=== PATIENT | male | born 1945 | race Caucasian/White ===

== ENCOUNTER 2018-03-16 21:41 | Inpatient (IN) | payer MEDICARE ==
[~2018-03-16] VITALS: Ht 170.2 cm; Wt 84.8 kg
[2018-03-16] MEDS ORDERED: CHOL10003 PO (22:05)
[2018-03-16] MEDS ORDERED: VALP250C2 PO (22:05)
[2018-03-16] MEDS ORDERED: VENL225T PO (22:05)
[2018-03-16] MEDS ORDERED: CALC200T96 PO (22:05)
[2018-03-16] MEDS ORDERED: PHEN26CR RC (22:05)
[2018-03-16] MEDS ORDERED: SULF1TAB24 PO (22:05)
[2018-03-16] MEDS ORDERED: [UNRECOGNIZED DRUG - CODE] PO (22:05)
[2018-03-16] MEDS ORDERED: SENN-87 PO (22:05)
[2018-03-16] MEDS ORDERED: SIMV40TA3 PO (22:05)
[2018-03-16] MEDS ORDERED: DOCU-109 PO (22:05)
[2018-03-16] MEDS ORDERED: VITS42.55 TP (22:05)
[2018-03-16] MEDS ORDERED: MAGN400T3 PO (22:05)
[2018-03-16] MEDS ORDERED: MEMA10TA PO (22:05)
[2018-03-16] MEDS ORDERED: ACET325T21 PO (22:05)
[2018-03-16] MEDS ORDERED: TRAZ150T49 PO (22:05)
[2018-03-16] MEDS ORDERED: DONE10TA7 PO (22:05)
[2018-03-16] MEDS ORDERED: NYST15CR TP (22:05)
[2018-03-16] MEDS ORDERED: ASPI-630 PO (22:05)
[2018-03-16] MEDS ORDERED: CLON0.5T11 PO ×2 (22:05)
[2018-03-16] MEDS ORDERED: RISP1TAB3 PO (22:05)
[2018-03-16 22:36] LABS: BASO # 0.1 x10^3/uL (0.0-0.2); BASO % 1 % (0-3); EOS # 0.4 x10^3/uL (0.0-0.7); EOS % 5 % (0-3); HEMATOCRIT 39.5 % (39.0-53.0); HEMOGLOBIN 13.3 g/dL (13.0-17.5); LYMPH # 2.8 x10^3/uL (1.0-4.8); LYMPH % 28 % (24-48); MEAN CORPUSCULAR HEMOGLOBIN 30 pg (25-35); MEAN CORPUSCULAR HGB CONC 34 g/dL (31-37); MEAN CORPUSCULAR VOLUME 89 fL (79-100); MONO % 10 % (0-9); NEUT # 5.6 x10^3uL (1.8-7.7); NEUT % 57 % (31-73); PLATELET COUNT 252 x10^3/uL (140-400); RED BLOOD COUNT 4.43 x10^6/uL (4.30-5.70); RED CELL DISTRIBUTION WIDTH 14.7 % (11.5-14.5); WHITE BLOOD COUNT 9.9 x10^3/uL (4.0-11.0)
[2018-03-16 22:43] LABS: ALBUMIN 3.2 g/dL (3.4-5.0); ALBUMIN/GLOBULIN RATIO 0.9 (1.0-1.7); CALCIUM 8.9 mg/dL (8.5-10.1); CREATININE 1.1 mg/dL (0.7-1.3); MAGNESIUM 2.1 mg/dL (1.8-2.4); TOTAL BILIRUBIN 0.4 mg/dL (0.2-1.0); TOTAL PROTEIN 6.8 g/dL (6.4-8.2)
[2018-03-16 23:47] LABS: BILIRUBIN,URINE NEG (NEG); CLARITY,URINE HAZY; COLOR,URINE YELLOW; GLUCOSE,URINE NEG (NEG)
[2018-03-16 23:48] LABS: BACTERIA,URINE FEW /HPF (0-FEW); NITRITE,URINE POS (NEG); UROBILINOGEN,URINE 0.2 mg/dL (0.2 mg/dL); WBC,URINE >40 /HPF (0-4)
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
[2018-03-17] MEDS ORDERED: MAG HYDROX/AL HYDROX/SIMETH 30 ML ORAL.SUSP PO PRN (01:15)
[2018-03-17] MEDS ORDERED: clonazePAM 0.5 MG TABLET PO PRN (01:15)
[2018-03-17] MEDS ORDERED: MAGNESIUM HYDROXIDE 2,400 MG/30 ML ORAL.SUSP. PO PRN (01:15)
[2018-03-17] MEDS ORDERED: ACETAMINOPHEN 325 MG TABLET PO PRN ×2 (01:15→01:30)
[2018-03-17] MEDS ORDERED: METHYL SALICYLATE/MENTHOL TOPICAL OINTMENT 29GM TUBE. TP PRN (01:15)
[2018-03-17 01:46] LABS: VAL ACID 23 mcg/mL (50-100)
[2018-03-17 02:14] VITALS: BP 140/72
--- NOTE | 2018-03-17 02:15 | EKG ---
[address] [address] Test Date: 2018-03-16 Test Time: 22:40:19 Pat Name: TOM BERG Department: Room: [address] [place] [address] Gender: M Bus Person: : 1945 Requested By: NAVEED WHELAN Order Number: [id number] Reading MD: Jeffrey Wu MD Measurements Intervals [place] Rate: 78 P: 43 TN: 150 QRS: -39 QRSD: 90 T: 36 QT: 380 QTc: 437 Interpretive Statements SINUS RHYTHM ABNORMAL LEFT AXIS DEVIATION LEFT ANTERIOR FASCICULAR BLOCK NON-SPECIFIC ST/T CHANGES Electronically Signed On 03-26-2018 10:53:44 CDT by Jeffrey Wu MD
[2018-03-17 06:43] VITALS: BP 123/59
[2018-03-17] MEDS: ASPIRIN 81 MG TAB.CHEW PO SCH (07:52)
[2018-03-17] MEDS: SMZ/TMP 800/160MG TABLET. PO SCH (07:52)
[2018-03-17] MEDS: MAGNESIUM OXIDE 400 MG TABLET PO SCH (07:52)
[2018-03-17] MEDS: VENLAFAXINE XR 37.5 MG CAP.ER.24H. PO SCH (07:53)
[2018-03-17] MEDS: CALCIUM CARBONATE 500 MG TAB.CHEW PO SCH ×2 (07:53→21:06)
[2018-03-17] MEDS: CHOLECALCIFEROL (VITAMIN D3) 1,000 UNIT TABLET PO SCH (07:53)
[2018-03-17] MEDS: clonazePAM 0.5 MG TABLET PO SCH ×2 (07:54→21:06)
[2018-03-17] MEDS: risperiDONE 0.25 MG TABLET. PO SCH ×2 (07:55→21:06)
[2018-03-17] MEDS: VITS A & D/LANOLIN TOPICAL OINTMENT 56GM TUBE. TP SCH ×2 (07:58→21:21)
[2018-03-17] MEDS: NYSTATIN 100,000 UNIT/GM TOPICAL CREAM 15GM TUBE. TP SCH ×2 (07:58→21:23)
[2018-03-17] MEDS ORDERED: VENLAFAXINE XR 37.5 MG CAP.ER.24H. PO SCH (09:00)
[2018-03-17] MEDS ORDERED: MEMANTINE 5 MG TABLET. PO SCH (09:00)
[2018-03-17 12:42] LABS: THYROID STIM HORMONE (TSH) 1.884 uIU/mL (0.358-3.740)
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
[2018-03-17 14:11] LABS: THYROXINE 5.7 ug/dL (4.5-12.0)
[2018-03-17 16:32] VITALS: BP 134/73
[2018-03-17 17:08] LABS: HEMOGLOBIN A1C 6.7 % (4.8-5.6)
[2018-03-17] MEDS: NIACIN ER 250 MG TABLET.ER PO SCH (17:09)
[2018-03-17] MEDS ORDERED: VALPROIC ACID 250 MG CAPSULE. PO SCH (21:00)
[2018-03-17] MEDS: DIVALPROEX ER 500 MG TAB.ER.24H PO SCH (21:06)
[2018-03-17] MEDS: DOCUSATE SODIUM 100 MG CAPSULE PO SCH (21:09)
[2018-03-17] MEDS: SENNOSIDES 8.6 MG TABLET PO SCH (21:09)
[2018-03-17] MEDS: DONEPEZIL HCL 10 MG TABLET PO SCH (21:09)
[2018-03-17] MEDS: traZODone 150 MG TABLET. PO SCH (21:19)
[2018-03-17] MEDS: SIMVASTATIN 40 MG TABLET. PO SCH (21:21)
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
--- NOTE | 2018-03-17 23:05 | PDOC ---
Exam Note: Bonilla Note: Please also refer to the separate dictated note~for this date of service dictated separately.~Patient seen individually. Discussed the patient with Nursing staff reviewed the chart.~Reviewed interim history and current functioning. Reviewed vital signs,~Labs/ Radiology~and current medications noted below. Continue current treatment with the changes noted in the dictated addendum note Assessment: Vital Signs: Vital Signs Date Time Temp Pulse Resp B/P (MAP) Pulse Ox O2 Delivery O2 Flow Rate FiO2 03/17/18 16:32 98.7 86 18 134/73 (93) 92 03/17/18 00:00 Room Air Labs: Laboratory Tests Test 03/16/18 23:25 Urine Collection Type Unknown Urine Color Yellow Urine Clarity Hazy Urine pH 6.5 Urine Specific [place] 1.020 Urine Protein Neg (NEG-TRACE) Urine Glucose (UA) Neg mg/dL (NEG) Urine Ketones (Stick) Neg mg/dL (NEG) Urine Blood Mod (NEG) Urine Nitrite Pos (NEG) Urine Bilirubin Neg (NEG) Urine Urobilinogen Dipstick 0.2 mg/dL (0.2 mg/dL) Urine Leukocyte Esterase Mod (NEG) Urine RBC 6-10 /HPF (0-2) Urine WBC >40 /HPF (0-4) Urine Squamous Epithelial Cells None /LPF Urine Bacteria Few /HPF (0-FEW) Current Medications: Meds: Current Medications Acetaminophen (Tylenol) 650 mg PRN Q6HRS PRN PO PAIN / TEMP; Start 03/17/18 at 01:15; Status UNV Multi-Ingredient Ointment (Analgesic [place]) 1 marlen PRN QID PRN TP MUSCLE PAIN; Start 03/17/18 at 01:15 Al Hydroxide/Mg Hydroxide (Mylanta Plus Xs) 15 ml PRN AFTMEALHC PRN PO DYSPEPSIA; Start 03/17/18 at 01:15 Magnesium Hydroxide (Milk Of Magnesia) 2,400 mg PRN QHS PRN PO CONSTIPATION; Start 03/17/18 at 01:15 Clonazepam (KlonoPIN) 0.5 mg BID PO Last administered on 03/17/18at 21:06; Start 03/17/18 at 09:00 Clonazepam (KlonoPIN) 0.5 mg PRN DAILY PRN PO ANXIETY / AGITATION; Start at 01:15 Valproic Acid (Depakene) 250 mg HS PO ; Start 03/17/18 at 21:00; Stop 03/17/18 at 21:00; Status DC Donepezil HCl (Aricept) 10 mg QHS PO Last administered on 03/17/18at 21:09; Start 03/17/18 at 21:00 Memantine (Namenda) 2.5 mg BID PO Last administered on 03/17/18at 07:54; Start 03/17/18 at 09:00; Stop 03/17/18 at 21:01; Status DC Risperidone (RisperDAL) 1 mg BID PO Last administered on 03/17/18 21:06; Start 03/17/18 at 09:00 Trazodone HCl (Desyrel) 150 mg QHS PO Last administered on 03/17/18 21:19; Start 03/17/18 at 21:00 Venlafaxine HCl (Effexor Xr) 37.5 mg DAILY PO ; Start 03/17/18 at 09:00; Stop at 09:00; Status DC Acetaminophen (Tylenol) 650 mg PRN Q6HRS PRN PO PAIN / TEMP; Start 03/17/18 at 01:30 Calcium Carbonate/ Glycine (Tums) 500 mg BID PO Last administered on 03/17/18 21:06; Start 03/17/18 at 09:00 Vitamin D (Vitamin D3) 2,000 unit DAILY PO Last administered on 03/17/18at 07:53 ; Start 03/17/18 at 09:00 Simvastatin (Zocor) 40 mg HS PO Last administered on 03/17/18 21:21; Start 06/24 at 21:00 Trimethoprim/ Sulfamethoxazole (Bactrim Ds) 1 tab DAILY PO Last administered on 03/17/18 07:52; Start 03/17/18 at 09:00 Vitamin A/Vitamin D (Vitamin A & D Ointment) 1 marlen BID TP Last administered on 03/17/18 21:21; Start 03/17/18 at 09:00 Aspirin (Children'S Aspirin) 81 mg DAILYWBKFT PO Last administered on 07:52; Start 03/17/18 at 08:00 Docusate Sodium (Colace) 200 mg HS PO Last administered on 03/17/18 21:09; Start 03/17/18 at 21:00 Magnesium Oxide (Magnesium Oxide) 400 mg DAILY PO Last administered on 07:52; Start 03/17/18 at 09:00 Niacin (Slo-Niacin) 750 mg QEVNG PO Last administered on 03/17/18 17:09; Start 03/17/18 at 18:00 Nystatin (Mycostatin) 1 marlen BID TP Last administered on 03/17/18at 21:23; Start 03/17/18 at 09:00 Phenyleph/Shark Oil/Min Oil/Petrol (Preparation H) 1 marlen PRN Q6HRS PRN RC RECTAL PAIN; Start 03/17/18 at 01:30 Sennosides (Senna) 17.2 mg HS PO Last administered on 03/17/18 21:09; Start at 21:00 Venlafaxine HCl (Effexor Xr) 225 mg DAILY PO Last administered on 03/17/18at 07: 53; Start 03/17/18 at 09:00 Divalproex Sodium (Depakote Er) 500 mg QHS PO Last administered on 03/17/18 21 :06; Start 03/17/18 at 21:00 Active Scripts Active Reported Preparation H Cream (Phenyleph/Pramoxin/Glycr/W.pet) 26 Gm Cream..g. 1 Marlen RC PRN Q6HRS PRN Nystatin 15 Gm Cream..g. 1 Marlen TP BID A and D Ointment (Vits A and D/White Pet/Lanolin) 42.5 Gm Oint...g. 1 Marlen TP BID Vitamin D3 (Cholecalciferol (Vitamin D3)) 1,000 Unit Tablet 2,000 Unit PO DAILY Venlafaxine Hcl Er (Venlafaxine Hcl) 225 Mg Tab.er.24 225 Mg PO DAILY Valproic Acid 250 Mg Capsule 250 Mg PO HS Trazodone Hcl 150 Mg Tablet 150 Mg PO HS Simvastatin 40 Mg Tablet 40 Mg PO HS Senna Lax (Sennosides) 8.6 Mg Tablet 17.2 Mg PO HS Risperidone 1 Mg Tablet 1 Mg PO BID Niacin Er (Niacin) 750 Mg Tab.er.24h 750 Mg PO HS Namenda (Memantine Hcl) 10 Mg Tablet 2.5 Mg PO BID Magnesium Oxide 400 Mg Tablet 400 Mg PO DAILY Donepezil Hcl 10 Mg Tablet 10 Mg PO HS Colace (Docusate Sodium) 100 Mg Capsule 200 Mg PO HS Clonazepam 0.5 Mg Tablet 0.5 Mg PO BID Clonazepam 0.5 Mg Tablet 0.5 Mg PO PRN DAILY PRN Grady-Gest (Calcium Carbonate) 200 Mg Tab.chew 500 Mg PO BID Bactrim Ds Tablet (Sulfamethoxazole/Trimethoprim) 1 Each Tablet 1 Tab PO DAILY Aspirin 81 Mg Tab.chew 81 Mg PO DAILY Acetaminophen 325 Mg Tablet 650 Mg PO PRN Q6HRS PRN I have reviewed the current psychotropics carefully including drug interactions. Risk benefit ratio favors no change other than as noted in my dictated progress note. Diagnosis: Problems: (1) Dementia with behavioral disturbance (2) Anxiety disorder (3) Dementia, vascular, with delusions (4) Dementia, vascular, with depression (5) Dementia in Alzheimer's disease with delusions (6) Dementia in Alzheimer's disease with depression (7) Impulse control disorder CELESTE MARIN MD Mar 17, 2018 23:05
[2018-03-18 07:18] VITALS: BP 132/77
[2018-03-18] MEDS: ASPIRIN 81 MG TAB.CHEW PO SCH (08:32)
[2018-03-18] MEDS: SMZ/TMP 800/160MG TABLET. PO SCH (08:32)
[2018-03-18] MEDS: VENLAFAXINE XR 37.5 MG CAP.ER.24H. PO SCH (08:32)
[2018-03-18] MEDS: CALCIUM CARBONATE 500 MG TAB.CHEW PO SCH ×2 (08:33→19:54)
[2018-03-18] MEDS: MAGNESIUM OXIDE 400 MG TABLET PO SCH (08:33)
[2018-03-18] MEDS: clonazePAM 0.5 MG TABLET PO SCH ×3 (08:33→21:00)
[2018-03-18] MEDS: CHOLECALCIFEROL (VITAMIN D3) 1,000 UNIT TABLET PO SCH (08:33)
[2018-03-18] MEDS: risperiDONE 0.25 MG TABLET. PO SCH ×2 (08:33→19:55)
[2018-03-18] MEDS: NYSTATIN 100,000 UNIT/GM TOPICAL CREAM 15GM TUBE. TP SCH ×2 (08:35→19:56)
[2018-03-18] MEDS: VITS A & D/LANOLIN TOPICAL OINTMENT 56GM TUBE. TP SCH ×2 (08:35→19:57)
[2018-03-18 16:00] VITALS: BP 131/65
[2018-03-18] MEDS: NIACIN ER 250 MG TABLET.ER PO SCH (17:14)
[2018-03-18] MEDS: SIMVASTATIN 40 MG TABLET. PO SCH (19:55)
[2018-03-18] MEDS: traZODone 150 MG TABLET. PO SCH (19:55)
[2018-03-18] MEDS: DOCUSATE SODIUM 100 MG CAPSULE PO SCH (19:55)
[2018-03-18] MEDS: DIVALPROEX ER 500 MG TAB.ER.24H PO SCH (19:56)
[2018-03-18] MEDS: SENNOSIDES 8.6 MG TABLET PO SCH (19:56)
[2018-03-18] MEDS: DONEPEZIL HCL 10 MG TABLET PO SCH (19:56)
[2018-03-18] MEDS: PHENYLEPH/MINERAL OIL/PETROLAT RECTAL OINTMENT 28GM TUBE. RC PRN (19:57)
--- NOTE | 2018-03-18 20:03 | PDOC ---
Exam Note: Bonilla Note: Please also refer to the separate dictated note~for this date of service dictated separately.~Patient seen individually. Discussed the patient with Nursing staff reviewed the chart.~Reviewed interim history and current functioning. Reviewed vital signs,~Labs/ Radiology~and current medications noted below. Continue current treatment with the changes noted in the dictated addendum note Assessment: Vital Signs: Vital Signs Date Time Temp Pulse Resp B/P (MAP) Pulse Ox O2 Delivery O2 Flow Rate FiO2 03/18/18 16:00 97.0 85 20 131/65 (87) 91 03/17/18 00:00 Room Air I&O Intake and Output 03/18/18 06:59 Intake Total 720 ml Balance 720 ml Intake Oral 720 ml Current Medications: Meds: Current Medications Acetaminophen (Tylenol) 650 mg PRN Q6HRS PRN PO PAIN / TEMP; Start 03/17/18 at 01:15; Status UNV Multi-Ingredient Ointment (Analgesic [place]) 1 marlen PRN QID PRN TP MUSCLE PAIN; Start 03/17/18 at 01:15 Al Hydroxide/Mg Hydroxide (Mylanta Plus Xs) 15 ml PRN AFTMEALHC PRN PO DYSPEPSIA; Start 03/17/18 at 01:15 Magnesium Hydroxide (Milk Of Magnesia) 2,400 mg PRN QHS PRN PO CONSTIPATION; Start 03/17/18 at 01:15 Clonazepam (KlonoPIN) 0.5 mg BID PO Last administered on 03/18/18at 19:55; Start 03/17/18 at 09:00 Clonazepam (KlonoPIN) 0.5 mg PRN DAILY PRN PO ANXIETY / AGITATION; Start at 01:15 Valproic Acid (Depakene) 250 mg HS PO ; Start 03/17/18 at 21:00; Stop 03/17/18 at 21:00; Status DC Donepezil HCl (Aricept) 10 mg QHS PO Last administered on 03/18/18at 19:56; Start 03/17/18 at 21:00 Memantine (Namenda) 2.5 mg BID PO Last administered on 03/17/18at 07:54; Start 03/17/18 at 09:00; Stop 03/17/18 at 21:01; Status DC Risperidone (RisperDAL) 1 mg BID PO Last administered on 03/18/18 19:55; Start 03/17/18 at 09:00 Trazodone HCl (Desyrel) 150 mg QHS PO Last administered on 03/18/18 19:55; Start 03/17/18 at 21:00 Venlafaxine HCl (Effexor Xr) 37.5 mg DAILY PO ; Start 03/17/18 at 09:00; Stop at 09:00; Status DC Acetaminophen (Tylenol) 650 mg PRN Q6HRS PRN PO PAIN / TEMP; Start 03/17/18 at 01:30 Calcium Carbonate/ Glycine (Tums) 500 mg BID PO Last administered on 03/18/18 19:54; Start 03/17/18 at 09:00 Vitamin D (Vitamin D3) 2,000 unit DAILY PO Last administered on 03/18/18 08:33 ; Start 03/17/18 at 09:00 Simvastatin (Zocor) 40 mg HS PO Last administered on 03/18/18 19:55; Start 06/24 at 21:00 Trimethoprim/ Sulfamethoxazole (Bactrim Ds) 1 tab DAILY PO Last administered on 03/18/18 08:32; Start 03/17/18 at 09:00 Vitamin A/Vitamin D (Vitamin A & D Ointment) 1 marlen BID TP Last administered on 03/18/18 19:57; Start 03/17/18 at 09:00 Aspirin (Children'S Aspirin) 81 mg DAILYWBKFT PO Last administered on 08:32; Start 03/17/18 at 08:00 Docusate Sodium (Colace) 200 mg HS PO Last administered on 03/18/18 19:55; Start 03/17/18 at 21:00 Magnesium Oxide (Magnesium Oxide) 400 mg DAILY PO Last administered on 08:33; Start 03/17/18 at 09:00 Niacin (Slo-Niacin) 750 mg QEVNG PO Last administered on 03/18/18 17:14; Start 03/17/18 at 18:00 Nystatin (Mycostatin) 1 marlen BID TP Last administered on 03/18/18 19:56; Start 03/17/18 at 09:00 Phenyleph/Shark Oil/Min Oil/Petrol (Preparation H) 1 marlen PRN Q6HRS PRN RC RECTAL PAIN Last administered on 03/18/18 19:57; Start 03/17/18 at 01:30 Sennosides (Senna) 17.2 mg HS PO Last administered on 03/18/18 19:56; Start at 21:00 Venlafaxine HCl (Effexor Xr) 225 mg DAILY PO Last administered on 03/18/18at 08: 32; Start 03/17/18 at 09:00 Divalproex Sodium (Depakote Er) 500 mg QHS PO Last administered on 03/18/18 19 :56; Start 03/17/18 at 21:00 Active Scripts Active Reported Preparation H Cream (Phenyleph/Pramoxin/Glycr/W.pet) 26 Gm Cream..g. 1 [place] RC PRN Q6HRS PRN Nystatin 15 Gm Cream..g. 1 [place]len TP BID A and D Ointment (Vits A and D/White Pet/Lanolin) 42.5 Gm Oint...g. 1 Mar[place] TP BID Vitamin D3 (Cholecalciferol (Vitamin D3)) 1,000 Unit Tablet 2,000 Unit PO DAILY Venlafaxine Hcl Er (Venlafaxine Hcl) 225 Mg Tab.er.24 225 Mg PO DAILY Valproic Acid 250 Mg Capsule 250 Mg PO HS Trazodone Hcl 150 Mg Tablet 150 Mg PO HS Simvastatin 40 Mg Tablet 40 Mg PO HS Senna Lax (Sennosides) 8.6 Mg Tablet 17.2 Mg PO HS Risperidone 1 Mg Tablet 1 Mg PO BID Niacin Er (Niacin) 750 Mg Tab.er.24h 750 Mg PO HS Namenda (Memantine Hcl) 10 Mg Tablet 2.5 Mg PO BID Magnesium Oxide 400 Mg Tablet 400 Mg PO DAILY Donepezil Hcl 10 Mg Tablet 10 Mg PO HS Colace (Docusate Sodium) 100 Mg Capsule 200 Mg PO HS Clonazepam 0.5 Mg Tablet 0.5 Mg PO BID Clonazepam 0.5 Mg Tablet 0.5 Mg PO PRN DAILY PRN Grady-Gest (Calcium Carbonate) 200 Mg Tab.chew 500 Mg PO BID Bactrim Ds Tablet (Sulfamethoxazole/Trimethoprim) 1 Each Tablet 1 Tab PO DAILY Aspirin 81 Mg Tab.chew 81 Mg PO DAILY Acetaminophen 325 Mg Tablet 650 Mg PO PRN Q6HRS PRN I have reviewed the current psychotropics carefully including drug interactions. Risk benefit ratio favors no change other than as noted in my dictated progress note. Diagnosis: Problems: (1) Dementia with behavioral disturbance (2) Anxiety disorder (3) Dementia, vascular, with delusions (4) Dementia, vascular, with depression (5) Dementia in Alzheimer's disease with delusions (6) Dementia in Alzheimer's disease with depression (7) Impulse control disorder CELESTE MARIN MD Mar 18, 2018 20:03
[2018-03-19 06:17] VITALS: BP 114/64
[2018-03-19] MEDS: SMZ/TMP 800/160MG TABLET. PO SCH (07:59)
[2018-03-19] MEDS: ASPIRIN 81 MG TAB.CHEW PO SCH (07:59)
[2018-03-19] MEDS: VENLAFAXINE XR 37.5 MG CAP.ER.24H. PO SCH (08:00)
[2018-03-19] MEDS: clonazePAM 0.5 MG TABLET PO SCH ×2 (08:07→20:10)
[2018-03-19] MEDS: MAGNESIUM OXIDE 400 MG TABLET PO SCH (08:07)
[2018-03-19] MEDS: CALCIUM CARBONATE 500 MG TAB.CHEW PO SCH ×2 (08:07→20:06)
[2018-03-19] MEDS: risperiDONE 0.25 MG TABLET. PO SCH ×2 (08:07→20:06)
[2018-03-19] MEDS: CHOLECALCIFEROL (VITAMIN D3) 1,000 UNIT TABLET PO SCH (08:09)
[2018-03-19] MEDS: VITS A & D/LANOLIN TOPICAL OINTMENT 56GM TUBE. TP SCH ×2 (08:09→20:07)
[2018-03-19] MEDS: NYSTATIN 100,000 UNIT/GM TOPICAL CREAM 15GM TUBE. TP SCH ×2 (08:09→20:07)
[2018-03-19 16:20] VITALS: BP 147/72
[2018-03-19] MEDS: NIACIN ER 250 MG TABLET.ER PO SCH (17:12)
[2018-03-19] MEDS: DIVALPROEX ER 500 MG TAB.ER.24H PO SCH (20:05)
[2018-03-19] MEDS: traZODone 150 MG TABLET. PO SCH (20:05)
[2018-03-19] MEDS: DONEPEZIL HCL 10 MG TABLET PO SCH (20:05)
[2018-03-19] MEDS: SENNOSIDES 8.6 MG TABLET PO SCH (20:05)
[2018-03-19] MEDS: SIMVASTATIN 40 MG TABLET. PO SCH (20:05)
[2018-03-19] MEDS: DOCUSATE SODIUM 100 MG CAPSULE PO SCH (20:06)
[2018-03-19] MEDS: LACTOBACILLUS RHAMNOSUS GG 1 CAPSULE. PO SCH (20:10)
--- NOTE | 2018-03-19 22:23 | PDOC ---
Exam Note: Bonilla Note: Please also refer to the separate dictated note~for this date of service dictated separately.~Patient seen individually. Discussed the patient with Nursing staff reviewed the chart.~Reviewed interim history and current functioning. Reviewed vital signs,~Labs/ Radiology~and current medications noted below. Continue current treatment with the changes noted in the dictated addendum note Assessment: Vital Signs: Vital Signs Date Time Temp Pulse Resp B/P (MAP) Pulse Ox O2 Delivery O2 Flow Rate FiO2 03/19/18 16:20 98.1 92 20 147/72 (97) 95 03/19/18 06:17 Room Air I&O Intake and Output 03/19/18 06:59 Intake Total 1200 ml Balance 1200 ml Intake Oral 1200 ml Current Medications: Meds: Current Medications Acetaminophen (Tylenol) 650 mg PRN Q6HRS PRN PO PAIN / TEMP; Start 03/17/18 at 01:15; Status UNV Multi-Ingredient Ointment (Analgesic [place]) 1 marlen PRN QID PRN TP MUSCLE PAIN; Start 03/17/18 at 01:15 Al Hydroxide/Mg Hydroxide (Mylanta Plus Xs) 15 ml PRN AFTMEALHC PRN PO DYSPEPSIA; Start 03/17/18 at 01:15 Magnesium Hydroxide (Milk Of Magnesia) 2,400 mg PRN QHS PRN PO CONSTIPATION; Start 03/17/18 at 01:15 Clonazepam (KlonoPIN) 0.5 mg BID PO Last administered on 03/18/18at 19:55; Start 03/17/18 at 09:00; Stop 03/18/18 at 20:38; Status DC Clonazepam (KlonoPIN) 0.5 mg PRN DAILY PRN PO ANXIETY / AGITATION; Start at 01:15 Valproic Acid (Depakene) 250 mg HS PO ; Start 03/17/18 at 21:00; Stop 03/17/18 at 21:00; Status DC Donepezil HCl (Aricept) 10 mg QHS PO Last administered on 03/19/18at 20:05; Start 03/17/18 at 21:00 Memantine (Namenda) 2.5 mg BID PO Last administered on 03/17/18at 07:54; Start 03/17/18 at 09:00; Stop 03/17/18 at 21:01; Status DC Risperidone (RisperDAL) 1 mg BID PO Last administered on 03/19/18 20:06; Start 03/17/18 at 09:00 Trazodone HCl (Desyrel) 150 mg QHS PO Last administered on 03/19/18 20:05; Start 03/17/18 at 21:00 Venlafaxine HCl (Effexor Xr) 37.5 mg DAILY PO ; Start 03/17/18 at 09:00; Stop at 09:00; Status DC Acetaminophen (Tylenol) 650 mg PRN Q6HRS PRN PO PAIN / TEMP; Start 03/17/18 at 01:30 Calcium Carbonate/ Glycine (Tums) 500 mg BID PO Last administered on 03/19/18 20:06; Start 03/17/18 at 09:00 Vitamin D (Vitamin D3) 2,000 unit DAILY PO Last administered on 03/19/18 08:09 ; Start 03/17/18 at 09:00 Simvastatin (Zocor) 40 mg HS PO Last administered on 03/19/18 20:05; Start 06/24 at 21:00 Trimethoprim/ Sulfamethoxazole (Bactrim Ds) 1 tab DAILY PO Last administered on 03/19/18 07:59; Start 03/17/18 at 09:00 Vitamin A/Vitamin D (Vitamin A & D Ointment) 1 marlen BID TP Last administered on 03/19/18 20:07; Start 03/17/18 at 09:00 Aspirin (Children'S Aspirin) 81 mg DAILYWBKFT PO Last administered on at 07:59; Start 03/17/18 at 08:00 Docusate Sodium (Colace) 200 mg HS PO Last administered on 03/19/18 20:06; Start 03/17/18 at 21:00 Magnesium Oxide (Magnesium Oxide) 400 mg DAILY PO Last administered on 08:07; Start 03/17/18 at 09:00 Niacin (Slo-Niacin) 750 mg QEVNG PO Last administered on 03/19/18 17:12; Start 03/17/18 at 18:00 Nystatin (Mycostatin) 1 marlen BID TP Last administered on 03/19/18 20:07; Start 03/17/18 at 09:00 Phenyleph/Shark Oil/Min Oil/Petrol (Preparation H) 1 marlen PRN Q6HRS PRN RC RECTAL PAIN Last administered on 03/18/18at 19:57; Start 03/17/18 at 01:30 Sennosides (Senna) 17.2 mg HS PO Last administered on 03/19/18at 20:05; Start at 21:00 Venlafaxine HCl (Effexor Xr) 225 mg DAILY PO Last administered on 03/19/18at 08: 00; Start 03/17/18 at 09:00 Divalproex Sodium (Depakote Er) 500 mg QHS PO Last administered on 03/19/18 20 :05; Start 03/17/18 at 21:00 Clonazepam (KlonoPIN) 0.25 mg BID PO Last administered on 03/19/18 20:10; Start 03/18/18 at 21:00 Lactobacillus Rhamnosus (Culturelle) 1 cap BID PO Last administered on at 20:10; Start 03/19/18 at 21:00 Active Scripts Active Reported Preparation H Cream (Phenyleph/Pramoxin/Glycr/W.pet) 26 Gm Cream..g. 1 [place] RC PRN Q6HRS PRN Nystatin 15 Gm Cream..g. 1 [place] TP BID A and D Ointment (Vits A and D/White Pet/Lanolin) 42.5 Gm Oint...g. 1 Mar[place] TP BID Vitamin D3 (Cholecalciferol (Vitamin D3)) 1,000 Unit Tablet 2,000 Unit PO DAILY Venlafaxine Hcl Er (Venlafaxine Hcl) 225 Mg Tab.er.24 225 Mg PO DAILY Valproic Acid 250 Mg Capsule 250 Mg PO HS Trazodone Hcl 150 Mg Tablet 150 Mg PO HS Simvastatin 40 Mg Tablet 40 Mg PO HS Senna Lax (Sennosides) 8.6 Mg Tablet 17.2 Mg PO HS Risperidone 1 Mg Tablet 1 Mg PO BID Niacin Er (Niacin) 750 Mg Tab.er.24h 750 Mg PO HS Namenda (Memantine Hcl) 10 Mg Tablet 2.5 Mg PO BID Magnesium Oxide 400 Mg Tablet 400 Mg PO DAILY Donepezil Hcl 10 Mg Tablet 10 Mg PO HS Colace (Docusate Sodium) 100 Mg Capsule 200 Mg PO HS Clonazepam 0.5 Mg Tablet 0.5 Mg PO BID Clonazepam 0.5 Mg Tablet 0.5 Mg PO PRN DAILY PRN Grady-Gest (Calcium Carbonate) 200 Mg Tab.chew 500 Mg PO BID Bactrim Ds Tablet (Sulfamethoxazole/Trimethoprim) 1 Each Tablet 1 Tab PO DAILY Aspirin 81 Mg Tab.chew 81 Mg PO DAILY Acetaminophen 325 Mg Tablet 650 Mg PO PRN Q6HRS PRN I have reviewed the current psychotropics carefully including drug interactions. Risk benefit ratio favors no change other than as noted in my dictated progress note. Diagnosis: Problems: (1) Dementia with behavioral disturbance (2) Anxiety disorder (3) Dementia, vascular, with delusions (4) Dementia, vascular, with depression (5) Dementia in Alzheimer's disease with delusions (6) Dementia in Alzheimer's disease with depression (7) Impulse control disorder CELESTE MARIN MD Mar 19, 2018 22:23
[2018-03-20 06:09] VITALS: BP 138/67
[2018-03-20] MEDS: risperiDONE 0.25 MG TABLET. PO SCH ×2 (07:45→20:14)
[2018-03-20] MEDS: CHOLECALCIFEROL (VITAMIN D3) 1,000 UNIT TABLET PO SCH (07:45)
[2018-03-20] MEDS: ASPIRIN 81 MG TAB.CHEW PO SCH (07:45)
[2018-03-20] MEDS: CALCIUM CARBONATE 500 MG TAB.CHEW PO SCH ×2 (07:45→20:14)
[2018-03-20] MEDS: NYSTATIN 100,000 UNIT/GM TOPICAL CREAM 15GM TUBE. TP SCH ×2 (07:46→20:30)
[2018-03-20] MEDS: SMZ/TMP 800/160MG TABLET. PO SCH (07:46)
[2018-03-20] MEDS: VENLAFAXINE XR 37.5 MG CAP.ER.24H. PO SCH (07:46)
[2018-03-20] MEDS: LACTOBACILLUS RHAMNOSUS GG 1 CAPSULE. PO SCH ×2 (07:46→20:15)
[2018-03-20] MEDS: VITS A & D/LANOLIN TOPICAL OINTMENT 56GM TUBE. TP SCH ×2 (07:46→20:30)
[2018-03-20] MEDS: MAGNESIUM OXIDE 400 MG TABLET PO SCH (07:46)
[2018-03-20] MEDS: clonazePAM 0.5 MG TABLET PO SCH ×2 (07:48→20:27)
--- NOTE | 2018-03-20 12:10 | PN ---
DATE: 03/18/2018 PSYCHIATRIC PROGRESS NOTE This is a late entry, 03/18, covers elements not covered in my initial note. SUBJECTIVE: I met with the patient in the evening. The patient slept 6-3/4 hours previous night. He remains confused. REVIEW OF SYSTEMS: Positive for constipation despite being on Colace 200 mg a day and Senna. I will defer to Dr. Herrera. No CV, , pulmonary, eye, ENT system symptoms on review. MENTAL STATUS EXAM: Oriented to himself, not very expressive, probably partly due to EPS secondary to 2 mg Risperdal a day. Speech moderate latency, often responses monosyllabic. Insight, judgment, recent and remote memory, attention, concentration, fund of knowledge poor, consistent with his diagnosis. IMPRESSION: Major neurocognitive disorder, Alzheimer, vascular with delusion, depression, behavioral disturbance. Rest unchanged. PLAN: Klonopin is at 0.5 b.i.d. We will reduce to 0.25 mg twice a day as a gradual taper. Depakote is being increased to reach therapeutic level. Maintain Effexor, but we may drop this lower as well and then reduce the Risperdal gradually. MAN Bryant MARIN MD DR: EVARISTO/noé JOB#: [id number] / [id number]
[2018-03-20 16:08] VITALS: BP 123/74
[2018-03-20] MEDS: NIACIN ER 250 MG TABLET.ER PO SCH (17:20)
[2018-03-20] MEDS: DIVALPROEX ER 500 MG TAB.ER.24H PO SCH (20:14)
[2018-03-20] MEDS: SENNOSIDES 8.6 MG TABLET PO SCH (20:14)
[2018-03-20] MEDS: DONEPEZIL HCL 10 MG TABLET PO SCH (20:15)
[2018-03-20] MEDS: DOCUSATE SODIUM 100 MG CAPSULE PO SCH (20:15)
[2018-03-20] MEDS: SIMVASTATIN 40 MG TABLET. PO SCH (20:27)
[2018-03-20] MEDS: traZODone 150 MG TABLET. PO SCH (20:27)
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
[2018-03-21 05:34] VITALS: BP 154/75
[2018-03-21 07:32] LABS: HEMATOCRIT 40.9 % (39.0-53.0); HEMOGLOBIN 13.8 g/dL (13.0-17.5); RED BLOOD COUNT 4.6 x10^6/uL (4.30-5.70); RED CELL DISTRIBUTION WIDTH 14.3 % (11.5-14.5); WHITE BLOOD COUNT 10.6 x10^3/uL (4.0-11.0)
[2018-03-21 07:33] LABS: ALBUMIN 3.6 g/dL (3.4-5.0); ALBUMIN/GLOBULIN RATIO 0.9 (1.0-1.7); ALK PHOS 70 U/L (46-116); ALT (SGPT) 37 U/L (16-63); ANION GAP 14 (6-14); AST (SGOT) 29 U/L (15-37); BLOOD UREA NITROGEN 10 mg/dL (8-26); BUN/CREATININE RATIO 10 (6-20); CALCIUM 8.9 mg/dL (8.5-10.1); CARBON DIOXIDE 23 mmol/L (21-32); CHLORIDE 103 mmol/L (98-107); GFR 73.7; GLUCOSE 97 mg/dL (70-99); SODIUM 140 mmol/L (136-145); TOTAL BILIRUBIN 0.5 mg/dL (0.2-1.0); TOTAL PROTEIN 7.6 g/dL (6.4-8.2)
[2018-03-21] MEDS: ASPIRIN 81 MG TAB.CHEW PO SCH (07:36)
[2018-03-21] MEDS: CALCIUM CARBONATE 500 MG TAB.CHEW PO SCH ×2 (07:36→20:22)
[2018-03-21] MEDS: LACTOBACILLUS RHAMNOSUS GG 1 CAPSULE. PO SCH ×2 (07:36→20:17)
[2018-03-21] MEDS: MAGNESIUM OXIDE 400 MG TABLET PO SCH (07:36)
[2018-03-21] MEDS: CHOLECALCIFEROL (VITAMIN D3) 1,000 UNIT TABLET PO SCH (07:37)
[2018-03-21] MEDS: SMZ/TMP 800/160MG TABLET. PO SCH (07:38)
[2018-03-21] MEDS: risperiDONE 0.25 MG TABLET. PO SCH (07:38)
[2018-03-21] MEDS: VENLAFAXINE XR 37.5 MG CAP.ER.24H. PO SCH (07:39)
[2018-03-21] MEDS: NYSTATIN 100,000 UNIT/GM TOPICAL CREAM 15GM TUBE. TP SCH ×2 (07:39→20:22)
[2018-03-21 07:40] LABS: VAL ACID 19 mcg/mL (50-100)
[2018-03-21] MEDS: VITS A & D/LANOLIN TOPICAL OINTMENT 56GM TUBE. TP SCH ×2 (07:40→20:22)
[2018-03-21 07:41] LABS: POTASSIUM 4.4 mmol/L (3.5-5.1)
[2018-03-21] MEDS: clonazePAM 0.5 MG TABLET PO SCH ×2 (07:41→20:26)
[2018-03-21 16:05] VITALS: BP 129/74
[2018-03-21] MEDS: NIACIN ER 250 MG TABLET.ER PO SCH (17:02)
[2018-03-21] MEDS: DOCUSATE SODIUM 100 MG CAPSULE PO SCH (20:17)
[2018-03-21] MEDS: SENNOSIDES 8.6 MG TABLET PO SCH (20:17)
[2018-03-21] MEDS: DIVALPROEX ER 500 MG TAB.ER.24H PO SCH (20:18)
[2018-03-21] MEDS: DIVALPROEX ER 250 MG TAB.ER.24H. PO SCH (20:20)
[2018-03-21] MEDS: traZODone 150 MG TABLET. PO SCH (20:20)
[2018-03-21] MEDS: MELATONIN 3 MG TABLET PO SCH (20:22)
[2018-03-21] MEDS: SIMVASTATIN 40 MG TABLET. PO SCH (20:22)
[2018-03-21] MEDS: DONEPEZIL HCL 10 MG TABLET PO SCH (20:22)
[2018-03-21] MEDS: risperiDONE 1 MG TABLET. PO SCH (20:28)
--- NOTE | 2018-03-22 00:10 | PN ---
DATE: 03/20/2018 PSYCHIATRIC PROGRESS NOTE This is a late entry, 03/20, covers elements not covered in my initial note. SUBJECTIVE: I met with the patient in the evening. The patient slept 6-3/4 hours previous evening. He remains confused, withdrawn, but not aggressive. REVIEW OF SYSTEMS: No CV, , pulmonary, eye, ENT system symptoms on review. MENTAL STATUS EXAM: Oriented to himself. Insight, judgment, recent and remote memory, attention, concentration, fund of knowledge poor, consistent with his diagnosis mentioned in my initial note. PLAN: Continue to taper the Klonopin, then next try and taper the Risperdal. Maintain Effexor, trazodone, Depakote, the latter is being adjusted. Follow labs level with plans to reach therapeutic level as we taper the Risperdal and Klonopin. MAN Bryant MARIN MD DR: EVARISTO/noé JOB#: [id number] / [id number]
--- NOTE | 2018-03-22 02:42 | PDOC ---
Exam Note: Bonilla Note: Please also refer to the separate dictated note~for this date of service dictated separately.~Patient seen individually. Discussed the patient with Nursing staff reviewed the chart.~Reviewed interim history and current functioning. Reviewed vital signs,~Labs/ Radiology~and current medications noted below. Continue current treatment with the changes noted in the dictated addendum note Assessment: Vital Signs: Vital Signs Date Time Temp Pulse Resp B/P (MAP) Pulse Ox O2 Delivery O2 Flow Rate FiO2 03/21/18 16:05 98.3 84 17 129/74 (92) 94 03/21/18 05:34 Room Air I&O Intake and Output 03/22/18 07:00 Intake Total 890 ml Balance 890 ml Intake Oral 890 ml # Voids 1 Labs: Laboratory Tests Test 03/21/18 04:34 03/21/18 07:02 Glucose (Fingerstick) 234 mg/dL (70-99) H White Blood Count 10.6 x10^3/uL (4.0-11.0) Red Blood Count 4.60 x10^6/uL (4.30-5.70) Hemoglobin 13.8 g/dL (13.0-17.5) Hematocrit 40.9 % (39.0-53.0) Mean Corpuscular Volume 89 fL (79-100) Mean Corpuscular Hemoglobin 30 pg (25-35) Mean Corpuscular Hemoglobin Concent 34 g/dL (31-37) Red Cell Distribution Width 14.3 % (11.5-14.5) Platelet Count 280 x10^3/uL (140-400) Sodium Level 140 mmol/L (136-145) Potassium Level 4.4 mmol/L (3.5-5.1) Chloride Level 103 mmol/L (98-107) Carbon Dioxide Level 23 mmol/L (21-32) Anion Gap 14 (6-14) Blood Urea Nitrogen 10 mg/dL (8-26) Creatinine 1.0 mg/dL (0.7-1.3) Estimated GFR (Cockcroft-Gault) 73.7 BUN/Creatinine Ratio 10 (6-20) Glucose Level 97 mg/dL (70-99) Calcium Level 8.9 mg/dL (8.5-10.1) Total Bilirubin 0.5 mg/dL (0.2-1.0) Aspartate Amino Transferase (AST) 29 U/L (15-37) Alanine Aminotransferase (ALT) 37 U/L (16-63) Alkaline Phosphatase 70 U/L (46-116) Total Protein 7.6 g/dL (6.4-8.2) Albumin 3.6 g/dL (3.4-5.0) Albumin/Globulin Ratio 0.9 (1.0-1.7) L Valproic Acid Level 19 mcg/mL (50-100) L Valproic Acid Last Dose Date 03/20/2018 Valproic Acid Last Dose Time 2100 Current Medications: Meds: Current Medications Acetaminophen (Tylenol) 650 mg PRN Q6HRS PRN PO PAIN / TEMP; Start 03/17/18 at 01:15; Status UNV Multi-Ingredient Ointment (Analgesic [place]) 1 marlen PRN QID PRN TP MUSCLE PAIN; Start 03/17/18 at 01:15 Al Hydroxide/Mg Hydroxide (Mylanta Plus Xs) 15 ml PRN AFTMEALHC PRN PO DYSPEPSIA; Start 03/17/18 at 01:15 Magnesium Hydroxide (Milk Of Magnesia) 2,400 mg PRN QHS PRN PO CONSTIPATION; Start 03/17/18 at 01:15 Clonazepam (KlonoPIN) 0.5 mg BID PO Last administered on 03/18/18at 19:55; Start 03/17/18 at 09:00; Stop 03/18/18 at 20:38; Status DC Clonazepam (KlonoPIN) 0.5 mg PRN DAILY PRN PO ANXIETY / AGITATION; Start at 01:15 Valproic Acid (Depakene) 250 mg HS PO ; Start 03/17/18 at 21:00; Stop 03/17/18 at 21:00; Status DC Donepezil HCl (Aricept) 10 mg QHS PO Last administered on 03/21/18at 20:22; Start 03/17/18 at 21:00 Memantine (Namenda) 2.5 mg BID PO Last administered on 03/17/18at 07:54; Start 03/17/18 at 09:00; Stop 03/17/18 at 21:01; Status DC Risperidone (RisperDAL) 1 mg BID PO Last administered on 03/21/18at 07:38; Start 03/17/18 at 09:00; Stop 03/21/18 at 16:11; Status DC Trazodone HCl (Desyrel) 150 mg QHS PO Last administered on 03/21/18 20:20; Start 03/17/18 at 21:00 Venlafaxine HCl (Effexor Xr) 37.5 mg DAILY PO ; Start 03/17/18 at 09:00; Stop at 09:00; Status DC Acetaminophen (Tylenol) 650 mg PRN Q6HRS PRN PO PAIN / TEMP; Start 03/17/18 at 01:30 Calcium Carbonate/ Glycine (Tums) 500 mg BID PO Last administered on 03/21/18 20:22; Start 03/17/18 at 09:00 Vitamin D (Vitamin D3) 2,000 unit DAILY PO Last administered on 03/21/18 07:37 ; Start 03/17/18 at 09:00 Simvastatin (Zocor) 40 mg HS PO Last administered on 03/21/18 20:22; Start 06/24 at 21:00 Trimethoprim/ Sulfamethoxazole (Bactrim Ds) 1 tab DAILY PO Last administered on 03/21/18 07:38; Start 03/17/18 at 09:00 Vitamin A/Vitamin D (Vitamin A & D Ointment) 1 marlen BID TP Last administered on 03/21/18 20:22; Start 03/17/18 at 09:00 Aspirin (Children'S Aspirin) 81 mg DAILYWBKFT PO Last administered on 07:36; Start 03/17/18 at 08:00 Docusate Sodium (Colace) 200 mg HS PO Last administered on 03/21/18 20:17; Start 03/17/18 at 21:00 Magnesium Oxide (Magnesium Oxide) 400 mg DAILY PO Last administered on 07:36; Start 03/17/18 at 09:00 Niacin (Slo-Niacin) 750 mg QEVNG PO Last administered on 03/21/18 17:02; Start 03/17/18 at 18:00 Nystatin (Mycostatin) 1 marlen BID TP Last administered on 03/21/18 20:22; Start 03/17/18 at 09:00 Phenyleph/Shark Oil/Min Oil/Petrol (Preparation H) 1 marlen PRN Q6HRS PRN RC RECTAL PAIN Last administered on 03/18/18 19:57; Start 03/17/18 at 01:30 Sennosides (Senna) 17.2 mg HS PO Last administered on 03/21/18 20:17; Start at 21:00 Venlafaxine HCl (Effexor Xr) 225 mg DAILY PO Last administered on 03/21/18 07: 39; Start 03/17/18 at 09:00 Divalproex Sodium (Depakote Er) 500 mg QHS PO Last administered on 03/20/18 20 :14; Start 03/17/18 at 21:00; Stop 03/21/18 at 16:11; Status DC Clonazepam (KlonoPIN) 0.25 mg BID PO Last administered on 03/21/18 20:26; Start 03/18/18 at 21:00 Lactobacillus Rhamnosus (Culturelle) 1 cap BID PO Last administered on 20:17; Start 03/19/18 at 21:00 Divalproex Sodium (Depakote Er) 500 mg QHS PO Last administered on 03/21/18 20 :18; Start 03/21/18 at 21:00 Risperidone (RisperDAL) 1 mg HS PO Last administered on 03/21/18 20:28; Start 03/21/18 at 21:00 Melatonin 3 mg QHS PO Last administered on 03/21/18 20:22; Start 03/21/18 at 21:00 Risperidone (RisperDAL) 0.5 mg DAILY PO ; Start 03/22/18 at 09:00 Divalproex Sodium (Depakote Er) 250 mg QHS PO Last administered on 03/21/18 20 :20; Start 03/21/18 at 21:00 Active Scripts Active Reported Preparation H Cream (Phenyleph/Pramoxin/Glycr/W.pet) 26 Gm Cream..g. 1 [place] RC PRN Q6HRS PRN Nystatin 15 Gm Cream..g. 1 [place] TP BID A and D Ointment (Vits A and D/White Pet/Lanolin) 42.5 Gm Oint...g. 1 [place] TP BID Vitamin D3 (Cholecalciferol (Vitamin D3)) 1,000 Unit Tablet 2,000 Unit PO DAILY Venlafaxine Hcl Er (Venlafaxine Hcl) 225 Mg Tab.er.24 225 Mg PO DAILY Valproic Acid 250 Mg Capsule 250 Mg PO HS Trazodone Hcl 150 Mg Tablet 150 Mg PO HS Simvastatin 40 Mg Tablet 40 Mg PO HS Senna Lax (Sennosides) 8.6 Mg Tablet 17.2 Mg PO HS Risperidone 1 Mg Tablet 1 Mg PO BID Niacin Er (Niacin) 750 Mg Tab.er.24h 750 Mg PO HS Namenda (Memantine Hcl) 10 Mg Tablet 2.5 Mg PO BID Magnesium Oxide 400 Mg Tablet 400 Mg PO DAILY Donepezil Hcl 10 Mg Tablet 10 Mg PO HS Colace (Docusate Sodium) 100 Mg Capsule 200 Mg PO HS Clonazepam 0.5 Mg Tablet 0.5 Mg PO BID Clonazepam 0.5 Mg Tablet 0.5 Mg PO PRN DAILY PRN Grady-Gest (Calcium Carbonate) 200 Mg Tab.chew 500 Mg PO BID Bactrim Ds Tablet (Sulfamethoxazole/Trimethoprim) 1 Each Tablet 1 Tab PO DAILY Aspirin 81 Mg Tab.chew 81 Mg PO DAILY Acetaminophen 325 Mg Tablet 650 Mg PO PRN Q6HRS PRN I have reviewed the current psychotropics carefully including drug interactions. Risk benefit ratio favors no change other than as noted in my dictated progress note. Diagnosis: Problems: (1) Dementia with behavioral disturbance (2) Anxiety disorder (3) Dementia, vascular, with delusions (4) Dementia, vascular, with depression (5) Dementia in Alzheimer's disease with delusions (6) Dementia in Alzheimer's disease with depression (7) Impulse control disorder CELESTE MARIN MD Mar 22, 2018 02:41
[2018-03-22 06:18] VITALS: BP 116/72
[2018-03-22] MEDS: CALCIUM CARBONATE 500 MG TAB.CHEW PO SCH ×2 (09:17→19:47)
[2018-03-22] MEDS: MAGNESIUM OXIDE 400 MG TABLET PO SCH (09:17)
[2018-03-22] MEDS: CHOLECALCIFEROL (VITAMIN D3) 1,000 UNIT TABLET PO SCH (09:17)
[2018-03-22] MEDS: ASPIRIN 81 MG TAB.CHEW PO SCH (09:18)
[2018-03-22] MEDS: LACTOBACILLUS RHAMNOSUS GG 1 CAPSULE. PO SCH ×2 (09:18→19:48)
[2018-03-22] MEDS: SMZ/TMP 800/160MG TABLET. PO SCH (09:18)
[2018-03-22] MEDS: VENLAFAXINE XR 37.5 MG CAP.ER.24H. PO SCH (09:18)
[2018-03-22] MEDS: clonazePAM 0.5 MG TABLET PO SCH ×2 (09:20→19:51)
[2018-03-22] MEDS: NYSTATIN 100,000 UNIT/GM TOPICAL CREAM 15GM TUBE. TP SCH ×2 (09:21→19:51)
[2018-03-22] MEDS: VITS A & D/LANOLIN TOPICAL OINTMENT 56GM TUBE. TP SCH ×2 (09:21→19:51)
[2018-03-22] MEDS: risperiDONE 0.5 MG TABLET. PO SCH (09:24)
[2018-03-22 15:55] VITALS: BP 119/78
[2018-03-22] MEDS: NIACIN ER 250 MG TABLET.ER PO SCH (16:40)
[2018-03-22] MEDS: DIVALPROEX ER 250 MG TAB.ER.24H. PO SCH (19:47)
[2018-03-22] MEDS: MELATONIN 3 MG TABLET PO SCH (19:48)
[2018-03-22] MEDS: traZODone 150 MG TABLET. PO SCH (19:48)
[2018-03-22] MEDS: SIMVASTATIN 40 MG TABLET. PO SCH (19:48)
[2018-03-22] MEDS: DONEPEZIL HCL 10 MG TABLET PO SCH (19:48)
[2018-03-22] MEDS: DIVALPROEX ER 500 MG TAB.ER.24H PO SCH (19:48)
[2018-03-22] MEDS: DOCUSATE SODIUM 100 MG CAPSULE PO SCH (19:49)
[2018-03-22] MEDS: SENNOSIDES 8.6 MG TABLET PO SCH (19:49)
[2018-03-22] MEDS: risperiDONE 1 MG TABLET. PO SCH (19:49)
--- NOTE | 2018-03-22 20:11 | PDOC ---
Exam Note: Bonilla Note: Please also refer to the separate dictated note~for this date of service dictated separately.~Patient seen individually. Discussed the patient with Nursing staff reviewed the chart.~Reviewed interim history and current functioning. Reviewed vital signs,~Labs/ Radiology~and current medications noted below. Continue current treatment with the changes noted in the dictated addendum note Assessment: Vital Signs: Vital Signs Date Time Temp Pulse Resp B/P (MAP) Pulse Ox O2 Delivery O2 Flow Rate FiO2 03/22/18 15:55 98.1 80 17 119/78 (92) 92 Room Air I&O Intake and Output 03/22/18 06:59 Intake Total 890 ml Balance 890 ml Intake Oral 890 ml # Voids 1 Current Medications: Meds: Current Medications Acetaminophen (Tylenol) 650 mg PRN Q6HRS PRN PO PAIN / TEMP; Start 03/17/18 at 01:15; Status UNV Multi-Ingredient Ointment (Analgesic [place]) 1 marlen PRN QID PRN TP MUSCLE PAIN; Start 03/17/18 at 01:15 Al Hydroxide/Mg Hydroxide (Mylanta Plus Xs) 15 ml PRN AFTMEALHC PRN PO DYSPEPSIA; Start 03/17/18 at 01:15 Magnesium Hydroxide (Milk Of Magnesia) 2,400 mg PRN QHS PRN PO CONSTIPATION; Start 03/17/18 at 01:15 Clonazepam (KlonoPIN) 0.5 mg BID PO Last administered on 03/18/18at 19:55; Start 03/17/18 at 09:00; Stop 03/18/18 at 20:38; Status DC Clonazepam (KlonoPIN) 0.5 mg PRN DAILY PRN PO ANXIETY / AGITATION; Start at 01:15 Valproic Acid (Depakene) 250 mg HS PO ; Start 03/17/18 at 21:00; Stop 03/17/18 at 21:00; Status DC Donepezil HCl (Aricept) 10 mg QHS PO Last administered on 03/22/18at 19:48; Start 03/17/18 at 21:00 Memantine (Namenda) 2.5 mg BID PO Last administered on 03/17/18at 07:54; Start 03/17/18 at 09:00; Stop 03/17/18 at 21:01; Status DC Risperidone (RisperDAL) 1 mg BID PO Last administered on 03/21/18at 07:38; Start 03/17/18 at 09:00; Stop 03/21/18 at 16:11; Status DC Trazodone HCl (Desyrel) 150 mg QHS PO Last administered on 03/22/18 19:48; Start 03/17/18 at 21:00 Venlafaxine HCl (Effexor Xr) 37.5 mg DAILY PO ; Start 03/17/18 at 09:00; Stop at 09:00; Status DC Acetaminophen (Tylenol) 650 mg PRN Q6HRS PRN PO PAIN / TEMP; Start 03/17/18 at 01:30 Calcium Carbonate/ Glycine (Tums) 500 mg BID PO Last administered on 03/22/18 19:47; Start 03/17/18 at 09:00 Vitamin D (Vitamin D3) 2,000 unit DAILY PO Last administered on 03/22/18 09:17 ; Start 03/17/18 at 09:00 Simvastatin (Zocor) 40 mg HS PO Last administered on 03/22/18 19:48; Start 06/24 at 21:00 Trimethoprim/ Sulfamethoxazole (Bactrim Ds) 1 tab DAILY PO Last administered on 03/22/18 09:18; Start 03/17/18 at 09:00 Vitamin A/Vitamin D (Vitamin A & D Ointment) 1 marlen BID TP Last administered on 03/22/18 19:51; Start 03/17/18 at 09:00 Aspirin (Children'S Aspirin) 81 mg DAILYWBKFT PO Last administered on 09:18; Start 03/17/18 at 08:00 Docusate Sodium (Colace) 200 mg HS PO Last administered on 03/22/18 19:49; Start 03/17/18 at 21:00 Magnesium Oxide (Magnesium Oxide) 400 mg DAILY PO Last administered on 09:17; Start 03/17/18 at 09:00 Niacin (Slo-Niacin) 750 mg QEVNG PO Last administered on 03/22/18 16:40; Start 03/17/18 at 18:00 Nystatin (Mycostatin) 1 marlen BID TP Last administered on 03/22/18 19:51; Start 03/17/18 at 09:00 Phenyleph/Shark Oil/Min Oil/Petrol (Preparation H) 1 marlen PRN Q6HRS PRN RC RECTAL PAIN Last administered on 03/18/18 19:57; Start 03/17/18 at 01:30 Sennosides (Senna) 17.2 mg HS PO Last administered on 03/22/18 19:49; Start at 21:00 Venlafaxine HCl (Effexor Xr) 225 mg DAILY PO Last administered on 03/22/18 09: 18; Start 03/17/18 at 09:00 Divalproex Sodium (Depakote Er) 500 mg QHS PO Last administered on 03/20/18 20 :14; Start 03/17/18 at 21:00; Stop 03/21/18 at 16:11; Status DC Clonazepam (KlonoPIN) 0.25 mg BID PO Last administered on 03/22/18 19:51; Start 03/18/18 at 21:00 Lactobacillus Rhamnosus (Culturelle) 1 cap BID PO Last administered on 19:48; Start 03/19/18 at 21:00 Divalproex Sodium (Depakote Er) 500 mg QHS PO Last administered on 03/22/18 19 :48; Start 03/21/18 at 21:00 Risperidone (RisperDAL) 1 mg HS PO Last administered on 03/22/18 19:49; Start 03/21/18 at 21:00 Melatonin 3 mg QHS PO Last administered on 03/22/18 19:48; Start 03/21/18 at 21:00 Risperidone (RisperDAL) 0.5 mg DAILY PO Last administered on 03/22/18 09:24; Start 03/22/18 at 09:00 Divalproex Sodium (Depakote Er) 250 mg QHS PO Last administered on 03/22/18 19 :47; Start 03/21/18 at 21:00 Active Scripts Active Reported Preparation H Cream (Phenyleph/Pramoxin/Glycr/W.pet) 26 Gm Cream..g. 1 Marlen RC PRN Q6HRS PRN Nystatin 15 Gm Cream..g. 1 Marlen TP BID A and D Ointment (Vits A and D/White Pet/Lanolin) 42.5 Gm Oint...g. 1 Marlen TP BID Vitamin D3 (Cholecalciferol (Vitamin D3)) 1,000 Unit Tablet 2,000 Unit PO DAILY Venlafaxine Hcl Er (Venlafaxine Hcl) 225 Mg Tab.er.24 225 Mg PO DAILY Valproic Acid 250 Mg Capsule 250 Mg PO HS Trazodone Hcl 150 Mg Tablet 150 Mg PO HS Simvastatin 40 Mg Tablet 40 Mg PO HS Senna Lax (Sennosides) 8.6 Mg Tablet 17.2 Mg PO HS Risperidone 1 Mg Tablet 1 Mg PO BID Niacin Er (Niacin) 750 Mg Tab.er.24h 750 Mg PO HS Namenda (Memantine Hcl) 10 Mg Tablet 2.5 Mg PO BID Magnesium Oxide 400 Mg Tablet 400 Mg PO DAILY Donepezil Hcl 10 Mg Tablet 10 Mg PO HS Colace (Docusate Sodium) 100 Mg Capsule 200 Mg PO HS Clonazepam 0.5 Mg Tablet 0.5 Mg PO BID Clonazepam 0.5 Mg Tablet 0.5 Mg PO PRN DAILY PRN Grady-Gest (Calcium Carbonate) 200 Mg Tab.chew 500 Mg PO BID Bactrim Ds Tablet (Sulfamethoxazole/Trimethoprim) 1 Each Tablet 1 Tab PO DAILY Aspirin 81 Mg Tab.chew 81 Mg PO DAILY Acetaminophen 325 Mg Tablet 650 Mg PO PRN Q6HRS PRN I have reviewed the current psychotropics carefully including drug interactions. Risk benefit ratio favors no change other than as noted in my dictated progress note. Diagnosis: Problems: (1) Dementia with behavioral disturbance (2) Anxiety disorder (3) Dementia, vascular, with delusions (4) Dementia, vascular, with depression (5) Dementia in Alzheimer's disease with delusions (6) Dementia in Alzheimer's disease with depression (7) Impulse control disorder CELESTE MARIN MD Mar 22, 2018 20:11
--- NOTE | 2018-03-22 20:45 | PDOC ---
Exam Note: Bonilla Note: Late entry for DOS March 20, 2018. Please also refer to the separate dictated note~for this date of service dictated separately.~Patient seen individually. Discussed the patient with Nursing staff reviewed the chart.~Reviewed interim history and current functioning. Reviewed vital signs,~Labs/ Radiology~and current medications noted below. Continue current treatment with the changes noted in the dictated addendum note Assessment: Vital Signs: VS - Last 72 Hours, by Label Date Time Temp Pulse Resp B/P (MAP) Pulse Ox O2 Delivery O2 Flow Rate FiO2 03/22/18 15:55 98.1 80 17 119/78 (92) 92 Room Air 03/22/18 06:18 97.2 76 16 116/72 (87) 95 Room Air 03/21/18 16:05 98.3 84 17 129/74 (92) 94 03/21/18 05:34 96.7 115 24 154/75 (101) 94 Room Air 03/20/18 16:08 98.6 76 17 123/74 (90) 97 Room Air 03/20/18 06:09 98.2 79 22 138/67 (90) 90 Vital Signs Date Time Temp Pulse Resp B/P (MAP) Pulse Ox O2 Delivery O2 Flow Rate FiO2 03/22/18 15:55 98.1 80 17 119/78 (92) 92 Room Air I&O Intake and Output 03/22/18 06:59 Intake Total 890 ml Balance 890 ml Intake Oral 890 ml # Voids 1 Current Medications: Meds: Current Medications Acetaminophen (Tylenol) 650 mg PRN Q6HRS PRN PO PAIN / TEMP; Start 03/17/18 at 01:15; Status UNV Multi-Ingredient Ointment (Analgesic [place]) 1 marlen PRN QID PRN TP MUSCLE PAIN; Start 03/17/18 at 01:15 Al Hydroxide/Mg Hydroxide (Mylanta Plus Xs) 15 ml PRN AFTMEALHC PRN PO DYSPEPSIA; Start 03/17/18 at 01:15 Magnesium Hydroxide (Milk Of Magnesia) 2,400 mg PRN QHS PRN PO CONSTIPATION; Start 03/17/18 at 01:15 Clonazepam (KlonoPIN) 0.5 mg BID PO Last administered on 03/18/18at 19:55; Start 03/17/18 at 09:00; Stop 03/18/18 at 20:38; Status DC Clonazepam (KlonoPIN) 0.5 mg PRN DAILY PRN PO ANXIETY / AGITATION; Start at 01:15 Valproic Acid (Depakene) 250 mg HS PO ; Start 03/17/18 at 21:00; Stop 03/17/18 at 21:00; Status DC Donepezil HCl (Aricept) 10 mg QHS PO Last administered on 03/22/18 19:48; Start 03/17/18 at 21:00 Memantine (Namenda) 2.5 mg BID PO Last administered on 03/17/18 07:54; Start 03/17/18 at 09:00; Stop 03/17/18 at 21:01; Status DC Risperidone (RisperDAL) 1 mg BID PO Last administered on 03/21/18at 07:38; Start 03/17/18 at 09:00; Stop 03/21/18 at 16:11; Status DC Trazodone HCl (Desyrel) 150 mg QHS PO Last administered on 03/22/18 19:48; Start 03/17/18 at 21:00 Venlafaxine HCl (Effexor Xr) 37.5 mg DAILY PO ; Start 03/17/18 at 09:00; Stop at 09:00; Status DC Acetaminophen (Tylenol) 650 mg PRN Q6HRS PRN PO PAIN / TEMP; Start 03/17/18 at 01:30 Calcium Carbonate/ Glycine (Tums) 500 mg BID PO Last administered on 03/22/18 19:47; Start 03/17/18 at 09:00 Vitamin D (Vitamin D3) 2,000 unit DAILY PO Last administered on 03/22/18 09:17 ; Start 03/17/18 at 09:00 Simvastatin (Zocor) 40 mg HS PO Last administered on 03/22/18 19:48; Start 06/24 at 21:00 Trimethoprim/ Sulfamethoxazole (Bactrim Ds) 1 tab DAILY PO Last administered on 03/22/18 09:18; Start 03/17/18 at 09:00 Vitamin A/Vitamin D (Vitamin A & D Ointment) 1 marlen BID TP Last administered on 03/22/18 19:51; Start 03/17/18 at 09:00 Aspirin (Children'S Aspirin) 81 mg DAILYWBKFT PO Last administered on 09:18; Start 03/17/18 at 08:00 Docusate Sodium (Colace) 200 mg HS PO Last administered on 03/22/18 19:49; Start 03/17/18 at 21:00 Magnesium Oxide (Magnesium Oxide) 400 mg DAILY PO Last administered on 09:17; Start 03/17/18 at 09:00 Niacin (Slo-Niacin) 750 mg QEVNG PO Last administered on 03/22/18 16:40; Start 03/17/18 at 18:00 Nystatin (Mycostatin) 1 marlen BID TP Last administered on 03/22/18 19:51; Start 03/17/18 at 09:00 Phenyleph/Shark Oil/Min Oil/Petrol (Preparation H) 1 marlen PRN Q6HRS PRN RC RECTAL PAIN Last administered on 03/18/18 19:57; Start 03/17/18 at 01:30 Sennosides (Senna) 17.2 mg HS PO Last administered on 03/22/18 19:49; Start at 21:00 Venlafaxine HCl (Effexor Xr) 225 mg DAILY PO Last administered on 03/22/18 09: 18; Start 03/17/18 at 09:00 Divalproex Sodium (Depakote Er) 500 mg QHS PO Last administered on 03/20/18at 20 :14; Start 03/17/18 at 21:00; Stop 03/21/18 at 16:11; Status DC Clonazepam (KlonoPIN) 0.25 mg BID PO Last administered on 03/22/18 19:51; Start 03/18/18 at 21:00 Lactobacillus Rhamnosus (Culturelle) 1 cap BID PO Last administered on 19:48; Start 03/19/18 at 21:00 Divalproex Sodium (Depakote Er) 500 mg QHS PO Last administered on 03/22/18 19 :48; Start 03/21/18 at 21:00 Risperidone (RisperDAL) 1 mg HS PO Last administered on 03/22/18 19:49; Start 03/21/18 at 21:00 Melatonin 3 mg QHS PO Last administered on 03/22/18at 19:48; Start 03/21/18 at 21:00 Risperidone (RisperDAL) 0.5 mg DAILY PO Last administered on 03/22/18at 09:24; Start 03/22/18 at 09:00 Divalproex Sodium (Depakote Er) 250 mg QHS PO Last administered on 03/22/18at 19 :47; Start 03/21/18 at 21:00 Active Scripts Active Reported Preparation H Cream (Phenyleph/Pramoxin/Glycr/W.pet) 26 Gm Cream..g. 1 Marlen RC PRN Q6HRS PRN Nystatin 15 Gm Cream..g. 1 Marlen TP BID A and D Ointment (Vits A and D/White Pet/Lanolin) 42.5 Gm Oint...g. 1 Marlen TP BID Vitamin D3 (Cholecalciferol (Vitamin D3)) 1,000 Unit Tablet 2,000 Unit PO DAILY Venlafaxine Hcl Er (Venlafaxine Hcl) 225 Mg Tab.er.24 225 Mg PO DAILY Valproic Acid 250 Mg Capsule 250 Mg PO HS Trazodone Hcl 150 Mg Tablet 150 Mg PO HS Simvastatin 40 Mg Tablet 40 Mg PO HS Senna Lax (Sennosides) 8.6 Mg Tablet 17.2 Mg PO HS Risperidone 1 Mg Tablet 1 Mg PO BID Niacin Er (Niacin) 750 Mg Tab.er.24h 750 Mg PO HS Namenda (Memantine Hcl) 10 Mg Tablet 2.5 Mg PO BID Magnesium Oxide 400 Mg Tablet 400 Mg PO DAILY Donepezil Hcl 10 Mg Tablet 10 Mg PO HS Colace (Docusate Sodium) 100 Mg Capsule 200 Mg PO HS Clonazepam 0.5 Mg Tablet 0.5 Mg PO BID Clonazepam 0.5 Mg Tablet 0.5 Mg PO PRN DAILY PRN Grady-Gest (Calcium Carbonate) 200 Mg Tab.chew 500 Mg PO BID Bactrim Ds Tablet (Sulfamethoxazole/Trimethoprim) 1 Each Tablet 1 Tab PO DAILY Aspirin 81 Mg Tab.chew 81 Mg PO DAILY Acetaminophen 325 Mg Tablet 650 Mg PO PRN Q6HRS PRN I have reviewed the current psychotropics carefully including drug interactions. Risk benefit ratio favors no change other than as noted in my dictated progress note. Diagnosis: Problems: (1) Dementia with behavioral disturbance (2) Anxiety disorder (3) Dementia, vascular, with delusions (4) Dementia, vascular, with depression (5) Dementia in Alzheimer's disease with delusions (6) Dementia in Alzheimer's disease with depression (7) Impulse control disorder CELESTE MARIN MD Mar 22, 2018 20:45
--- NOTE | 2018-03-22 21:47 | PN ---
DATE: 03/21/2018 PSYCHIATRIC PROGRESS NOTE This is a late entry 03/21/2018, covers elements not covered in my initial note. SUBJECTIVE: I met with the patient in the evening. The patient slept 2-3/4 hours previous evening. He remains confused, withdrawn, but otherwise pleasant, not aggressive. REVIEW OF SYSTEMS: No CV, , pulmonary, eye, ENT system symptoms on review. MENTAL STATUS EXAM: Oriented to himself. Insight, judgment, recent and remote memory, attention, concentration, fund of knowledge poor, consistent with his diagnosis. He was playing [employer] game with the nursing staff and seemed to be able to follow along with it appropriately. LABORATORY DATA: Reviewed. IMPRESSION: Unchanged from initial note. PLAN: Add melatonin 3 mg at bedtime for ongoing insomnia. Blood sugar 234. Valproic acid level is 19 on Depakote ER 500 mg at bedtime. We will increase to 750 mg p.o. at bedtime. Check CBC, CMP, valproic acid level in 3 days. Risperdal is 1 mg b.i.d., we will reduce to 0.5 mg in the morning and 1 mg at night. Klonopin is being tapered. CELESTE MARIN MD DR: EVARISTO/noé JOB#: [id number] / [id number]
[2018-03-23 05:52] VITALS: BP 152/86
[2018-03-23] MEDS: CHOLECALCIFEROL (VITAMIN D3) 1,000 UNIT TABLET PO SCH (08:51)
[2018-03-23] MEDS: LACTOBACILLUS RHAMNOSUS GG 1 CAPSULE. PO SCH ×2 (08:52→19:52)
[2018-03-23] MEDS: VENLAFAXINE XR 37.5 MG CAP.ER.24H. PO SCH (08:52)
[2018-03-23] MEDS: MAGNESIUM OXIDE 400 MG TABLET PO SCH (08:52)
[2018-03-23] MEDS: ASPIRIN 81 MG TAB.CHEW PO SCH (08:52)
[2018-03-23] MEDS: CALCIUM CARBONATE 500 MG TAB.CHEW PO SCH ×2 (08:52→19:52)
[2018-03-23] MEDS: SMZ/TMP 800/160MG TABLET. PO SCH (08:52)
[2018-03-23] MEDS: risperiDONE 0.5 MG TABLET. PO SCH (08:52)
[2018-03-23] MEDS: NYSTATIN 100,000 UNIT/GM TOPICAL CREAM 15GM TUBE. TP SCH ×2 (08:54→19:53)
[2018-03-23] MEDS: VITS A & D/LANOLIN TOPICAL OINTMENT 56GM TUBE. TP SCH ×2 (08:55→19:53)
[2018-03-23] MEDS: clonazePAM 0.5 MG TABLET PO SCH ×2 (08:55→19:54)
--- NOTE | 2018-03-23 12:22 | PN ---
DATE: 03/22/2018 PSYCHIATRIC PROGRESS NOTE This is a late entry, 03/22, covers elements not covered in my initial note. SUBJECTIVE: I met with the patient evening of 03/22, staffed at treatment team meeting with the entire team in the morning and the patient's , Sangeetha, attended. Reviewed his history, diagnosis, progress, medications, discharge plans back to the [facility] in [place]. The patient has been calm, quiet, cooperative, somewhat withdrawn. There is a parkinsonian facial expression, but we are going to be reducing the Risperdal gradually to help alleviate some of this since we do not see any overt psychotic symptoms. Sleeping 6-7 hours. He has been helpful with other patients. REVIEW OF SYSTEMS: No CV, , pulmonary, eye, ENT system symptoms on review. MENTAL STATUS EXAM: Oriented to himself. Insight, judgment, recent and remote memory, attention, concentration, fund of knowledge poor, consistent with his diagnosis mentioned in my initial note. IMPRESSION: Major neurocognitive disorder, Alzheimer, vascular with delusion, depression, behavioral disturbance. Rest unchanged. PLAN: Continue to taper the Klonopin. We have already reduced the Risperdal. We will reduce further gradually. Depakote ER has been increased to reach a therapeutic level. I will make further adjustments as clinically indicated. CELESTE MARIN MD DR: EVARISTO/noé JOB#: [id number] / [id number]
[2018-03-23 15:49] VITALS: BP 119/64
[2018-03-23] MEDS: NIACIN ER 250 MG TABLET.ER PO SCH (17:37)
[2018-03-23] MEDS: traZODone 150 MG TABLET. PO SCH (19:51)
[2018-03-23] MEDS: DIVALPROEX ER 250 MG TAB.ER.24H. PO SCH (19:52)
[2018-03-23] MEDS: DONEPEZIL HCL 10 MG TABLET PO SCH (19:52)
[2018-03-23] MEDS: SENNOSIDES 8.6 MG TABLET PO SCH (19:52)
[2018-03-23] MEDS: MELATONIN 3 MG TABLET PO SCH (19:52)
[2018-03-23] MEDS: SIMVASTATIN 40 MG TABLET. PO SCH (19:52)
[2018-03-23] MEDS: DIVALPROEX ER 500 MG TAB.ER.24H PO SCH (19:52)
[2018-03-23] MEDS: DOCUSATE SODIUM 100 MG CAPSULE PO SCH (19:52)
[2018-03-23] MEDS: risperiDONE 1 MG TABLET. PO SCH (19:53)
--- NOTE | 2018-03-23 20:18 | PDOC ---
Exam Note: Bonilla Note: Please also refer to the separate dictated note~for this date of service dictated separately.~Patient seen individually. Discussed the patient with Nursing staff reviewed the chart.~Reviewed interim history and current functioning. Reviewed vital signs,~Labs/ Radiology~and current medications noted below. Continue current treatment with the changes noted in the dictated addendum note Assessment: Vital Signs: Vital Signs Date Time Temp Pulse Resp B/P (MAP) Pulse Ox O2 Delivery O2 Flow Rate FiO2 03/23/18 15:49 97.8 83 17 119/64 (82) 95 Room Air I&O Intake and Output 03/23/18 06:59 Intake Total 960 ml Balance 960 ml Intake Oral 960 ml Current Medications: Meds: Current Medications Acetaminophen (Tylenol) 650 mg PRN Q6HRS PRN PO PAIN / TEMP; Start 03/17/18 at 01:15; Status UNV Multi-Ingredient Ointment (Analgesic [place]) 1 marlen PRN QID PRN TP MUSCLE PAIN; Start 03/17/18 at 01:15 Al Hydroxide/Mg Hydroxide (Mylanta Plus Xs) 15 ml PRN AFTMEALHC PRN PO DYSPEPSIA; Start 03/17/18 at 01:15 Magnesium Hydroxide (Milk Of Magnesia) 2,400 mg PRN QHS PRN PO CONSTIPATION; Start 03/17/18 at 01:15 Clonazepam (KlonoPIN) 0.5 mg BID PO Last administered on 03/18/18at 19:55; Start 03/17/18 at 09:00; Stop 03/18/18 at 20:38; Status DC Clonazepam (KlonoPIN) 0.5 mg PRN DAILY PRN PO ANXIETY / AGITATION; Start at 01:15 Valproic Acid (Depakene) 250 mg HS PO ; Start 03/17/18 at 21:00; Stop 03/17/18 at 21:00; Status DC Donepezil HCl (Aricept) 10 mg QHS PO Last administered on 03/23/18at 19:52; Start 03/17/18 at 21:00 Memantine (Namenda) 2.5 mg BID PO Last administered on 03/17/18at 07:54; Start 03/17/18 at 09:00; Stop 03/17/18 at 21:01; Status DC Risperidone (RisperDAL) 1 mg BID PO Last administered on 03/21/18at 07:38; Start 03/17/18 at 09:00; Stop 03/21/18 at 16:11; Status DC Trazodone HCl (Desyrel) 150 mg QHS PO Last administered on 03/23/18 19:51; Start 03/17/18 at 21:00 Venlafaxine HCl (Effexor Xr) 37.5 mg DAILY PO ; Start 03/17/18 at 09:00; Stop at 09:00; Status DC Acetaminophen (Tylenol) 650 mg PRN Q6HRS PRN PO PAIN / TEMP; Start 03/17/18 at 01:30 Calcium Carbonate/ Glycine (Tums) 500 mg BID PO Last administered on 03/23/18 19:52; Start 03/17/18 at 09:00 Vitamin D (Vitamin D3) 2,000 unit DAILY PO Last administered on 03/23/18 08:51 ; Start 03/17/18 at 09:00 Simvastatin (Zocor) 40 mg HS PO Last administered on 03/23/18 19:52; Start 06/24 at 21:00 Trimethoprim/ Sulfamethoxazole (Bactrim Ds) 1 tab DAILY PO Last administered on 03/23/18 08:52; Start 03/17/18 at 09:00 Vitamin A/Vitamin D (Vitamin A & D Ointment) 1 marlen BID TP Last administered on 03/23/18 19:53; Start 03/17/18 at 09:00 Aspirin (Children'S Aspirin) 81 mg DAILYWBKFT PO Last administered on 08:52; Start 03/17/18 at 08:00 Docusate Sodium (Colace) 200 mg HS PO Last administered on 03/23/18 19:52; Start 03/17/18 at 21:00 Magnesium Oxide (Magnesium Oxide) 400 mg DAILY PO Last administered on 08:52; Start 03/17/18 at 09:00 Niacin (Slo-Niacin) 750 mg QEVNG PO Last administered on 03/23/18 17:37; Start 03/17/18 at 18:00 Nystatin (Mycostatin) 1 marlen BID TP Last administered on 03/23/18 19:53; Start 03/17/18 at 09:00 Phenyleph/Shark Oil/Min Oil/Petrol (Preparation H) 1 marlen PRN Q6HRS PRN RC RECTAL PAIN Last administered on 03/18/18 19:57; Start 03/17/18 at 01:30 Sennosides (Senna) 17.2 mg HS PO Last administered on 03/23/18 19:52; Start at 21:00 Venlafaxine HCl (Effexor Xr) 225 mg DAILY PO Last administered on 03/23/18 08: 52; Start 03/17/18 at 09:00 Divalproex Sodium (Depakote Er) 500 mg QHS PO Last administered on 03/20/18at 20 :14; Start 03/17/18 at 21:00; Stop 03/21/18 at 16:11; Status DC Clonazepam (KlonoPIN) 0.25 mg BID PO Last administered on 03/23/18 19:54; Start 03/18/18 at 21:00 Lactobacillus Rhamnosus (Culturelle) 1 cap BID PO Last administered on 19:52; Start 03/19/18 at 21:00 Divalproex Sodium (Depakote Er) 500 mg QHS PO Last administered on 03/23/18 19 :52; Start 03/21/18 at 21:00 Risperidone (RisperDAL) 1 mg HS PO Last administered on 03/23/18 19:53; Start 03/21/18 at 21:00 Melatonin 3 mg QHS PO Last administered on 03/23/18 19:52; Start 03/21/18 at 21:00 Risperidone (RisperDAL) 0.5 mg DAILY PO Last administered on 03/23/18 08:52; Start 03/22/18 at 09:00 Divalproex Sodium (Depakote Er) 250 mg QHS PO Last administered on 03/23/18 19 :52; Start 03/21/18 at 21:00 Active Scripts Active Reported Preparation H Cream (Phenyleph/Pramoxin/Glycr/W.pet) 26 Gm Cream..g. 1 Marlen RC PRN Q6HRS PRN Nystatin 15 Gm Cream..g. 1 Marlen TP BID A and D Ointment (Vits A and D/White Pet/Lanolin) 42.5 Gm Oint...g. 1 Marlen TP BID Vitamin D3 (Cholecalciferol (Vitamin D3)) 1,000 Unit Tablet 2,000 Unit PO DAILY Venlafaxine Hcl Er (Venlafaxine Hcl) 225 Mg Tab.er.24 225 Mg PO DAILY Valproic Acid 250 Mg Capsule 250 Mg PO HS Trazodone Hcl 150 Mg Tablet 150 Mg PO HS Simvastatin 40 Mg Tablet 40 Mg PO HS Senna Lax (Sennosides) 8.6 Mg Tablet 17.2 Mg PO HS Risperidone 1 Mg Tablet 1 Mg PO BID Niacin Er (Niacin) 750 Mg Tab.er.24h 750 Mg PO HS Namenda (Memantine Hcl) 10 Mg Tablet 2.5 Mg PO BID Magnesium Oxide 400 Mg Tablet 400 Mg PO DAILY Donepezil Hcl 10 Mg Tablet 10 Mg PO HS Colace (Docusate Sodium) 100 Mg Capsule 200 Mg PO HS Clonazepam 0.5 Mg Tablet 0.5 Mg PO BID Clonazepam 0.5 Mg Tablet 0.5 Mg PO PRN DAILY PRN Grady-Gest (Calcium Carbonate) 200 Mg Tab.chew 500 Mg PO BID Bactrim Ds Tablet (Sulfamethoxazole/Trimethoprim) 1 Each Tablet 1 Tab PO DAILY Aspirin 81 Mg Tab.chew 81 Mg PO DAILY Acetaminophen 325 Mg Tablet 650 Mg PO PRN Q6HRS PRN I have reviewed the current psychotropics carefully including drug interactions. Risk benefit ratio favors no change other than as noted in my dictated progress note. Diagnosis: Problems: (1) Dementia with behavioral disturbance (2) Anxiety disorder (3) Dementia, vascular, with delusions (4) Dementia, vascular, with depression (5) Dementia in Alzheimer's disease with delusions (6) Dementia in Alzheimer's disease with depression (7) Impulse control disorder CELESTE MARIN MD Mar 23, 2018 20:18
[2018-03-24 05:48] VITALS: BP 138/81
[2018-03-24 08:10] LABS: BASO # 0.1 x10^3/uL (0.0-0.2); BASO % 1 % (0-3); EOS # 0.3 x10^3/uL (0.0-0.7); EOS % 3 % (0-3); LYMPH # 2.5 x10^3/uL (1.0-4.8); LYMPH % 26 % (24-48); MEAN CORPUSCULAR HEMOGLOBIN 30 pg (25-35); MEAN CORPUSCULAR HGB CONC 33 g/dL (31-37); MEAN CORPUSCULAR VOLUME 90 fL (79-100); MONO % 11 % (0-9); NEUT # 5.7 x10^3uL (1.8-7.7); NEUT % 59 % (31-73); PLATELET COUNT 273 x10^3/uL (140-400); RED BLOOD COUNT 4.67 x10^6/uL (4.30-5.70); RED CELL DISTRIBUTION WIDTH 14.4 % (11.5-14.5); WHITE BLOOD COUNT 9.6 x10^3/uL (4.0-11.0)
[2018-03-24 08:24] LABS: ALBUMIN 3.5 g/dL (3.4-5.0); ALBUMIN/GLOBULIN RATIO 0.9 (1.0-1.7); ALK PHOS 67 U/L (46-116); ALT (SGPT) 35 U/L (16-63); ANION GAP 15 (6-14); AST (SGOT) 25 U/L (15-37); BLOOD UREA NITROGEN 10 mg/dL (8-26); BUN/CREATININE RATIO 8 (6-20); CARBON DIOXIDE 21 mmol/L (21-32); CHLORIDE 105 mmol/L (98-107); CREATININE 1.2 mg/dL (0.7-1.3); GFR 59.7; GLUCOSE 165 mg/dL (70-99); POTASSIUM 4.1 mmol/L (3.5-5.1); SODIUM 141 mmol/L (136-145); TOTAL BILIRUBIN 0.6 mg/dL (0.2-1.0); TOTAL PROTEIN 7.2 g/dL (6.4-8.2)
[2018-03-24 08:30] LABS: VAL ACID 31 mcg/mL (50-100)
[2018-03-24] MEDS: LACTOBACILLUS RHAMNOSUS GG 1 CAPSULE. PO SCH ×2 (08:55→19:23)
[2018-03-24] MEDS: VENLAFAXINE XR 37.5 MG CAP.ER.24H. PO SCH (08:55)
[2018-03-24] MEDS: ASPIRIN 81 MG TAB.CHEW PO SCH (08:55)
[2018-03-24] MEDS: clonazePAM 0.5 MG TABLET PO SCH ×2 (08:57→19:40)
[2018-03-24] MEDS: risperiDONE 0.5 MG TABLET. PO SCH (09:01)
[2018-03-24] MEDS: CHOLECALCIFEROL (VITAMIN D3) 1,000 UNIT TABLET PO SCH (09:01)
[2018-03-24] MEDS: MAGNESIUM OXIDE 400 MG TABLET PO SCH (09:01)
[2018-03-24] MEDS: CALCIUM CARBONATE 500 MG TAB.CHEW PO SCH ×2 (09:01→19:23)
[2018-03-24] MEDS: NYSTATIN 100,000 UNIT/GM TOPICAL CREAM 15GM TUBE. TP SCH ×2 (10:44→19:24)
[2018-03-24] MEDS: VITS A & D/LANOLIN TOPICAL OINTMENT 56GM TUBE. TP SCH ×2 (10:44→19:24)
--- NOTE | 2018-03-24 11:05 | PN ---
DATE: 03/23/2018 This is a late entry, 03/23/2018, covers the elements not covered in my initial note. SUBJECTIVE: I met with the patient at length in the evening. Per nursing report, the patient has been calm, confused, but with an intense look on his face. He is very quiet, cooperative, wonders, has a flat affect and some of this could be due to the parkinsonian side effects from the Risperdal. He has limited verbal response per nursing report. Nursing staff do report that at times, he is somewhat quite impulsive, grabbing things out of the hand of nursing staff, somewhat paranoid. This was not entirely evident previously and we will have to keep a close watch on this. REVIEW OF SYSTEMS: No CV, , pulmonary, eye, ENT system symptoms on review. Reliability poor. MENTAL STATUS EXAM: Oriented to himself. Insight, judgment, recent and remote memory, attention, concentration, fund of knowledge poor, consistent with his diagnosis as mentioned in my initial note. PLAN: No change from initial note. We will not taper the Risperdal or Klonopin further for now, observe some of the concerns noted by the nursing staff about his impulsivity before we reduce any of these further. We will adjust the Depakote gradually to reach therapeutic level in the interim and may reduce the Effexor as well. MAN Bryant MARIN MD DR: EVARISTO/noé JOB#: [id number] / [id number]
[2018-03-24] MEDS: NIACIN ER 250 MG TABLET.ER PO SCH (16:13)
[2018-03-24 16:19] VITALS: BP 110/70
[2018-03-24] MEDS: SIMVASTATIN 40 MG TABLET. PO SCH (19:23)
[2018-03-24] MEDS: risperiDONE 1 MG TABLET. PO SCH (19:23)
[2018-03-24] MEDS: DOCUSATE SODIUM 100 MG CAPSULE PO SCH (19:23)
[2018-03-24] MEDS: traZODone 150 MG TABLET. PO SCH (19:23)
[2018-03-24] MEDS: SENNOSIDES 8.6 MG TABLET PO SCH (19:23)
[2018-03-24] MEDS: MELATONIN 3 MG TABLET PO SCH (19:23)
[2018-03-24] MEDS: DONEPEZIL HCL 10 MG TABLET PO SCH (19:23)
[2018-03-24] MEDS: DIVALPROEX ER 500 MG TAB.ER.24H PO SCH (19:39)
--- NOTE | 2018-03-24 22:11 | PDOC ---
Exam Note: Bonilla Note: Please also refer to the separate dictated note~for this date of service dictated separately.~Patient seen individually. Discussed the patient with Nursing staff reviewed the chart.~Reviewed interim history and current functioning. Reviewed vital signs,~Labs/ Radiology~and current medications noted below. Continue current treatment with the changes noted in the dictated addendum note Assessment: Vital Signs: Vital Signs Date Time Temp Pulse Resp B/P (MAP) Pulse Ox O2 Delivery O2 Flow Rate FiO2 03/24/18 16:19 97.8 89 18 110/70 (83) 93 03/23/18 15:49 Room Air I&O Intake and Output 03/24/18 07:00 Intake Total 840 ml Balance 840 ml Intake Oral 840 ml # Bowel Movements 1 Labs: Laboratory Tests Test 03/24/18 07:42 White Blood Count 9.6 x10^3/uL (4.0-11.0) Red Blood Count 4.67 x10^6/uL (4.30-5.70) Hemoglobin 14.0 g/dL (13.0-17.5) Hematocrit 42.0 % (39.0-53.0) Mean Corpuscular Volume 90 fL (79-100) Mean Corpuscular Hemoglobin 30 pg (25-35) Mean Corpuscular Hemoglobin Concent 33 g/dL (31-37) Red Cell Distribution Width 14.4 % (11.5-14.5) Platelet Count 273 x10^3/uL (140-400) Neutrophils (%) (Auto) 59 % (31-73) Lymphocytes (%) (Auto) 26 % (24-48) Monocytes (%) (Auto) 11 % (0-9) H Eosinophils (%) (Auto) 3 % (0-3) Basophils (%) (Auto) 1 % (0-3) Neutrophils # (Auto) 5.7 x10^3uL (1.8-7.7) Lymphocytes # (Auto) 2.5 x10^3/uL (1.0-4.8) Monocytes # (Auto) 1.0 x10^3/uL (0.0-1.1) Eosinophils # (Auto) 0.3 x10^3/uL (0.0-0.7) Basophils # (Auto) 0.1 x10^3/uL (0.0-0.2) Sodium Level 141 mmol/L (136-145) Potassium Level 4.1 mmol/L (3.5-5.1) Chloride Level 105 mmol/L (98-107) Carbon Dioxide Level 21 mmol/L (21-32) Anion Gap 15 (6-14) H Blood Urea Nitrogen 10 mg/dL (8-26) Creatinine 1.2 mg/dL (0.7-1.3) Estimated GFR (Cockcroft-Gault) 59.7 BUN/Creatinine Ratio 8 (6-20) Glucose Level 165 mg/dL (70-99) H Calcium Level 9.0 mg/dL (8.5-10.1) Total Bilirubin 0.6 mg/dL (0.2-1.0) Aspartate Amino Transferase (AST) 25 U/L (15-37) Alanine Aminotransferase (ALT) 35 U/L (16-63) Alkaline Phosphatase 67 U/L (46-116) Total Protein 7.2 g/dL (6.4-8.2) Albumin 3.5 g/dL (3.4-5.0) Albumin/Globulin Ratio 0.9 (1.0-1.7) L Valproic Acid Level 31 mcg/mL (50-100) L Valproic Acid Last Dose Date 03/23/2018 Valproic Acid Last Dose Time 2100 Current Medications: Meds: Current Medications Acetaminophen (Tylenol) 650 mg PRN Q6HRS PRN PO PAIN / TEMP; Start 03/17/18 at 01:15; Status UNV Multi-Ingredient Ointment (Analgesic [place]) 1 marlen PRN QID PRN TP MUSCLE PAIN; Start 03/17/18 at 01:15 Al Hydroxide/Mg Hydroxide (Mylanta Plus Xs) 15 ml PRN AFTMEALHC PRN PO DYSPEPSIA; Start 03/17/18 at 01:15 Magnesium Hydroxide (Milk Of Magnesia) 2,400 mg PRN QHS PRN PO CONSTIPATION; Start 03/17/18 at 01:15 Clonazepam (KlonoPIN) 0.5 mg BID PO Last administered on 03/18/18at 19:55; Start 03/17/18 at 09:00; Stop 03/18/18 at 20:38; Status DC Clonazepam (KlonoPIN) 0.5 mg PRN DAILY PRN PO ANXIETY / AGITATION; Start at 01:15 Valproic Acid (Depakene) 250 mg HS PO ; Start 03/17/18 at 21:00; Stop 03/17/18 at 21:00; Status DC Donepezil HCl (Aricept) 10 mg QHS PO Last administered on 03/24/18at 19:23; Start 03/17/18 at 21:00 Memantine (Namenda) 2.5 mg BID PO Last administered on 03/17/18at 07:54; Start 03/17/18 at 09:00; Stop 03/17/18 at 21:01; Status DC Risperidone (RisperDAL) 1 mg BID PO Last administered on 03/21/18at 07:38; Start 03/17/18 at 09:00; Stop 03/21/18 at 16:11; Status DC Trazodone HCl (Desyrel) 150 mg QHS PO Last administered on 03/24/18 19:23; Start 03/17/18 at 21:00 Venlafaxine HCl (Effexor Xr) 37.5 mg DAILY PO ; Start 03/17/18 at 09:00; Stop at 09:00; Status DC Acetaminophen (Tylenol) 650 mg PRN Q6HRS PRN PO PAIN / TEMP; Start 03/17/18 at 01:30 Calcium Carbonate/ Glycine (Tums) 500 mg BID PO Last administered on 03/24/18 19:23; Start 03/17/18 at 09:00 Vitamin D (Vitamin D3) 2,000 unit DAILY PO Last administered on 03/24/18at 09:01 ; Start 03/17/18 at 09:00 Simvastatin (Zocor) 40 mg HS PO Last administered on 03/24/18 19:23; Start 06/24 at 21:00 Trimethoprim/ Sulfamethoxazole (Bactrim Ds) 1 tab DAILY PO Last administered on 03/23/18at 08:52; Start 03/17/18 at 09:00; Stop 03/24/18 at 08:43; Status DC Vitamin A/Vitamin D (Vitamin A & D Ointment) 1 marlen BID TP Last administered on 03/24/18 19:24; Start 03/17/18 at 09:00 Aspirin (Children'S Aspirin) 81 mg DAILYWBKFT PO Last administered on 08:55; Start 03/17/18 at 08:00 Docusate Sodium (Colace) 200 mg HS PO Last administered on 03/24/18 19:23; Start 03/17/18 at 21:00 Magnesium Oxide (Magnesium Oxide) 400 mg DAILY PO Last administered on 09:01; Start 03/17/18 at 09:00 Niacin (Slo-Niacin) 750 mg QEVNG PO Last administered on 03/24/18 16:13; Start 03/17/18 at 18:00 Nystatin (Mycostatin) 1 marlen BID TP Last administered on 03/24/18 19:24; Start 03/17/18 at 09:00 Phenyleph/Shark Oil/Min Oil/Petrol (Preparation H) 1 marlen PRN Q6HRS PRN RC RECTAL PAIN Last administered on 03/18/18 19:57; Start 03/17/18 at 01:30 Sennosides (Senna) 17.2 mg HS PO Last administered on 03/24/18 19:23; Start at 21:00 Venlafaxine HCl (Effexor Xr) 225 mg DAILY PO Last administered on 03/24/18 08: 55; Start 03/17/18 at 09:00 Divalproex Sodium (Depakote Er) 500 mg QHS PO Last administered on 03/20/18at 20 :14; Start 03/17/18 at 21:00; Stop 03/21/18 at 16:11; Status DC Clonazepam (KlonoPIN) 0.25 mg BID PO Last administered on 03/24/18at 19:40; Start 03/18/18 at 21:00 Lactobacillus Rhamnosus (Culturelle) 1 cap BID PO Last administered on 19:23; Start 03/19/18 at 21:00 Divalproex Sodium (Depakote Er) 500 mg QHS PO Last administered on 03/23/18 19 :52; Start 03/21/18 at 21:00; Stop 03/24/18 at 13:42; Status DC Risperidone (RisperDAL) 1 mg HS PO Last administered on 03/24/18 19:23; Start 03/21/18 at 21:00 Melatonin 3 mg QHS PO Last administered on 03/24/18at 19:23; Start 03/21/18 at 21:00 Risperidone (RisperDAL) 0.5 mg DAILY PO Last administered on 03/24/18at 09:01; Start 03/22/18 at 09:00; Stop 03/24/18 at 13:42; Status DC Divalproex Sodium (Depakote Er) 250 mg QHS PO Last administered on 03/23/18at 19 :52; Start 03/21/18 at 21:00; Stop 03/24/18 at 13:42; Status DC Divalproex Sodium (Depakote Er) 1,000 mg QHS PO Last administered on 03/24/18at 19:39; Start 03/24/18 at 21:00 Active Scripts Active Reported Preparation H Cream (Phenyleph/Pramoxin/Glycr/W.pet) 26 Gm Cream..g. 1 Marlen RC PRN Q6HRS PRN Nystatin 15 Gm Cream..g. 1 Marlen TP BID A and D Ointment (Vits A and D/White Pet/Lanolin) 42.5 Gm Oint...g. 1 Marlen TP BID Vitamin D3 (Cholecalciferol (Vitamin D3)) 1,000 Unit Tablet 2,000 Unit PO DAILY Venlafaxine Hcl Er (Venlafaxine Hcl) 225 Mg Tab.er.24 225 Mg PO DAILY Valproic Acid 250 Mg Capsule 250 Mg PO HS Trazodone Hcl 150 Mg Tablet 150 Mg PO HS Simvastatin 40 Mg Tablet 40 Mg PO HS Senna Lax (Sennosides) 8.6 Mg Tablet 17.2 Mg PO HS Risperidone 1 Mg Tablet 1 Mg PO BID Niacin Er (Niacin) 750 Mg Tab.er.24h 750 Mg PO HS Namenda (Memantine Hcl) 10 Mg Tablet 2.5 Mg PO BID Magnesium Oxide 400 Mg Tablet 400 Mg PO DAILY Donepezil Hcl 10 Mg Tablet 10 Mg PO HS Colace (Docusate Sodium) 100 Mg Capsule 200 Mg PO HS Clonazepam 0.5 Mg Tablet 0.5 Mg PO BID Clonazepam 0.5 Mg Tablet 0.5 Mg PO PRN DAILY PRN Grady-Gest (Calcium Carbonate) 200 Mg Tab.chew 500 Mg PO BID Bactrim Ds Tablet (Sulfamethoxazole/Trimethoprim) 1 Each Tablet 1 Tab PO DAILY Aspirin 81 Mg Tab.chew 81 Mg PO DAILY Acetaminophen 325 Mg Tablet 650 Mg PO PRN Q6HRS PRN I have reviewed the current psychotropics carefully including drug interactions. Risk benefit ratio favors no change other than as noted in my dictated progress note. Diagnosis: Problems: (1) Dementia with behavioral disturbance (2) Anxiety disorder (3) Dementia, vascular, with delusions (4) Dementia, vascular, with depression (5) Dementia in Alzheimer's disease with delusions (6) Dementia in Alzheimer's disease with depression (7) Impulse control disorder CELESTE MRAIN MD Mar 24, 2018 22:10
[2018-03-25 05:47] VITALS: BP 117/67
[2018-03-25] MEDS: ASPIRIN 81 MG TAB.CHEW PO SCH (08:46)
[2018-03-25] MEDS: LACTOBACILLUS RHAMNOSUS GG 1 CAPSULE. PO SCH ×2 (08:48→19:47)
[2018-03-25] MEDS: VENLAFAXINE XR 37.5 MG CAP.ER.24H. PO SCH (08:48)
[2018-03-25] MEDS: CALCIUM CARBONATE 500 MG TAB.CHEW PO SCH ×2 (08:49→19:47)
[2018-03-25] MEDS: MAGNESIUM OXIDE 400 MG TABLET PO SCH (08:49)
[2018-03-25] MEDS: CHOLECALCIFEROL (VITAMIN D3) 1,000 UNIT TABLET PO SCH (08:49)
[2018-03-25] MEDS: clonazePAM 0.5 MG TABLET PO SCH ×2 (08:49→19:49)
[2018-03-25] MEDS: VITS A & D/LANOLIN TOPICAL OINTMENT 56GM TUBE. TP SCH ×2 (11:11→19:51)
[2018-03-25] MEDS: NYSTATIN 100,000 UNIT/GM TOPICAL CREAM 15GM TUBE. TP SCH ×2 (11:11→19:51)
[2018-03-25 16:13] VITALS: BP 131/76
[2018-03-25] MEDS: NIACIN ER 250 MG TABLET.ER PO SCH (17:12)
[2018-03-25] MEDS: MELATONIN 3 MG TABLET PO SCH (19:46)
[2018-03-25] MEDS: SENNOSIDES 8.6 MG TABLET PO SCH (19:46)
[2018-03-25] MEDS: SIMVASTATIN 40 MG TABLET. PO SCH (19:47)
[2018-03-25] MEDS: DONEPEZIL HCL 10 MG TABLET PO SCH (19:47)
[2018-03-25] MEDS: DOCUSATE SODIUM 100 MG CAPSULE PO SCH (19:47)
[2018-03-25] MEDS: DIVALPROEX ER 500 MG TAB.ER.24H PO SCH (19:47)
[2018-03-25] MEDS: risperiDONE 1 MG TABLET. PO SCH (19:47)
[2018-03-25] MEDS: traZODone 150 MG TABLET. PO SCH (19:47)
--- NOTE | 2018-03-25 20:47 | PDOC ---
Exam Note: Bonilla Note: Please also refer to the separate dictated note~for this date of service dictated separately.~Patient seen individually. Discussed the patient with Nursing staff reviewed the chart.~Reviewed interim history and current functioning. Reviewed vital signs,~Labs/ Radiology~and current medications noted below. Continue current treatment with the changes noted in the dictated addendum note Assessment: Vital Signs: Vital Signs Date Time Temp Pulse Resp B/P (MAP) Pulse Ox O2 Delivery O2 Flow Rate FiO2 03/25/18 16:13 98.0 79 20 131/76 (94) 97 03/23/18 15:49 Room Air I&O Intake and Output 03/25/18 07:01 Intake Total 1100 ml Balance 1100 ml Intake Oral 1100 ml # Voids 1 # Bowel Movements 1 Current Medications: Meds: Current Medications Acetaminophen (Tylenol) 650 mg PRN Q6HRS PRN PO PAIN / TEMP; Start 03/17/18 at 01:15; Status UNV Multi-Ingredient Ointment (Analgesic [place]) 1 marlen PRN QID PRN TP MUSCLE PAIN; Start 03/17/18 at 01:15 Al Hydroxide/Mg Hydroxide (Mylanta Plus Xs) 15 ml PRN AFTMEALHC PRN PO DYSPEPSIA; Start 03/17/18 at 01:15 Magnesium Hydroxide (Milk Of Magnesia) 2,400 mg PRN QHS PRN PO CONSTIPATION; Start 03/17/18 at 01:15 Clonazepam (KlonoPIN) 0.5 mg BID PO Last administered on 03/18/18at 19:55; Start 03/17/18 at 09:00; Stop 03/18/18 at 20:38; Status DC Clonazepam (KlonoPIN) 0.5 mg PRN DAILY PRN PO ANXIETY / AGITATION; Start at 01:15 Valproic Acid (Depakene) 250 mg HS PO ; Start 03/17/18 at 21:00; Stop 03/17/18 at 21:00; Status DC Donepezil HCl (Aricept) 10 mg QHS PO Last administered on 03/25/18at 19:47; Start 03/17/18 at 21:00 Memantine (Namenda) 2.5 mg BID PO Last administered on 03/17/18at 07:54; Start 03/17/18 at 09:00; Stop 03/17/18 at 21:01; Status DC Risperidone (RisperDAL) 1 mg BID PO Last administered on 03/21/18at 07:38; Start 03/17/18 at 09:00; Stop 03/21/18 at 16:11; Status DC Trazodone HCl (Desyrel) 150 mg QHS PO Last administered on 03/25/18 19:47; Start 03/17/18 at 21:00 Venlafaxine HCl (Effexor Xr) 37.5 mg DAILY PO ; Start 03/17/18 at 09:00; Stop at 09:00; Status DC Acetaminophen (Tylenol) 650 mg PRN Q6HRS PRN PO PAIN / TEMP; Start 03/17/18 at 01:30 Calcium Carbonate/ Glycine (Tums) 500 mg BID PO Last administered on 03/25/18 19:47; Start 03/17/18 at 09:00 Vitamin D (Vitamin D3) 2,000 unit DAILY PO Last administered on 03/25/18at 08:49 ; Start 03/17/18 at 09:00 Simvastatin (Zocor) 40 mg HS PO Last administered on 03/25/18 19:47; Start 06/24 at 21:00 Trimethoprim/ Sulfamethoxazole (Bactrim Ds) 1 tab DAILY PO Last administered on 03/23/18 08:52; Start 03/17/18 at 09:00; Stop 03/24/18 at 08:43; Status DC Vitamin A/Vitamin D (Vitamin A & D Ointment) 1 marlen BID TP Last administered on 03/25/18 19:51; Start 03/17/18 at 09:00 Aspirin (Children'S Aspirin) 81 mg DAILYWBKFT PO Last administered on 08:46; Start 03/17/18 at 08:00 Docusate Sodium (Colace) 200 mg HS PO Last administered on 03/25/18 19:47; Start 03/17/18 at 21:00 Magnesium Oxide (Magnesium Oxide) 400 mg DAILY PO Last administered on 08:49; Start 03/17/18 at 09:00 Niacin (Slo-Niacin) 750 mg QEVNG PO Last administered on 03/25/18at 17:12; Start 03/17/18 at 18:00 Nystatin (Mycostatin) 1 marlen BID TP Last administered on 03/25/18 19:51; Start 03/17/18 at 09:00 Phenyleph/Shark Oil/Min Oil/Petrol (Preparation H) 1 marlen PRN Q6HRS PRN RC RECTAL PAIN Last administered on 03/18/18 19:57; Start 03/17/18 at 01:30 Sennosides (Senna) 17.2 mg HS PO Last administered on 03/25/18 19:46; Start at 21:00 Venlafaxine HCl (Effexor Xr) 225 mg DAILY PO Last administered on 03/25/18 08: 48; Start 03/17/18 at 09:00 Divalproex Sodium (Depakote Er) 500 mg QHS PO Last administered on 03/20/18 20 :14; Start 03/17/18 at 21:00; Stop 03/21/18 at 16:11; Status DC Clonazepam (KlonoPIN) 0.25 mg BID PO Last administered on 03/25/18at 08:49; Start 03/18/18 at 21:00; Stop 03/25/18 at 18:25; Status DC Lactobacillus Rhamnosus (Culturelle) 1 cap BID PO Last administered on 19:47; Start 03/19/18 at 21:00 Divalproex Sodium (Depakote Er) 500 mg QHS PO Last administered on 03/23/18 19 :52; Start 03/21/18 at 21:00; Stop 03/24/18 at 13:42; Status DC Risperidone (RisperDAL) 1 mg HS PO Last administered on 03/25/18 19:47; Start 03/21/18 at 21:00 Melatonin 3 mg QHS PO Last administered on 03/25/18 19:46; Start 03/21/18 at 21:00 Risperidone (RisperDAL) 0.5 mg DAILY PO Last administered on 03/24/18at 09:01; Start 03/22/18 at 09:00; Stop 03/24/18 at 13:42; Status DC Divalproex Sodium (Depakote Er) 250 mg QHS PO Last administered on 8/17/18at 19 :52; Start 03/21/18 at 21:00; Stop 03/24/18 at 13:42; Status DC Divalproex Sodium (Depakote Er) 1,000 mg QHS PO Last administered on 03/25/18at 19:47; Start 03/24/18 at 21:00 Clonazepam (KlonoPIN) 0.25 mg HS PO Last administered on 03/25/18at 19:49; Start 03/25/18 at 21:00 Active Scripts Active Reported Preparation H Cream (Phenyleph/Pramoxin/Glycr/W.pet) 26 Gm Cream..g. 1 Marlen RC PRN Q6HRS PRN Nystatin 15 Gm Cream..g. 1 Marlen TP BID A and D Ointment (Vits A and D/White Pet/Lanolin) 42.5 Gm Oint...g. 1 Marlen TP BID Vitamin D3 (Cholecalciferol (Vitamin D3)) 1,000 Unit Tablet 2,000 Unit PO DAILY Venlafaxine Hcl Er (Venlafaxine Hcl) 225 Mg Tab.er.24 225 Mg PO DAILY Valproic Acid 250 Mg Capsule 250 Mg PO HS Trazodone Hcl 150 Mg Tablet 150 Mg PO HS Simvastatin 40 Mg Tablet 40 Mg PO HS Senna Lax (Sennosides) 8.6 Mg Tablet 17.2 Mg PO HS Risperidone 1 Mg Tablet 1 Mg PO BID Niacin Er (Niacin) 750 Mg Tab.er.24h 750 Mg PO HS Namenda (Memantine Hcl) 10 Mg Tablet 2.5 Mg PO BID Magnesium Oxide 400 Mg Tablet 400 Mg PO DAILY Donepezil Hcl 10 Mg Tablet 10 Mg PO HS Colace (Docusate Sodium) 100 Mg Capsule 200 Mg PO HS Clonazepam 0.5 Mg Tablet 0.5 Mg PO BID Clonazepam 0.5 Mg Tablet 0.5 Mg PO PRN DAILY PRN Grady-Gest (Calcium Carbonate) 200 Mg Tab.chew 500 Mg PO BID Bactrim Ds Tablet (Sulfamethoxazole/Trimethoprim) 1 Each Tablet 1 Tab PO DAILY Aspirin 81 Mg Tab.chew 81 Mg PO DAILY Acetaminophen 325 Mg Tablet 650 Mg PO PRN Q6HRS PRN I have reviewed the current psychotropics carefully including drug interactions. Risk benefit ratio favors no change other than as noted in my dictated progress note. Diagnosis: Problems: (1) Dementia with behavioral disturbance (2) Anxiety disorder (3) Dementia, vascular, with delusions (4) Dementia, vascular, with depression (5) Dementia in Alzheimer's disease with delusions (6) Dementia in Alzheimer's disease with depression (7) Impulse control disorder CELESTE MARIN MD Mar 25, 2018 20:47
--- NOTE | 2018-03-25 22:44 | PN ---
DATE: 03/24/2018 This late entry 03/24/2018, covers elements not covered in my initial note. SUBJECTIVE: I met with the patient in the morning. The patient slept 6-1/2 hours previous evening. He remains somewhat anxious, restless, shaking his leg. Valproic acid level is 31, but he has not been aggressive. REVIEW OF SYSTEMS: No CV, , pulmonary, eye, ENT system symptoms on review. He is very confused, helpful to other patients. MENTAL STATUS EXAMINATION: Oriented to himself. Insight, judgment, recent and remote memory, attention, concentration, fund of knowledge poor, consistent with his diagnosis mentioned in my initial note. IMPRESSION: Major neurocognitive disorder, Alzheimer, vascular with delusion, depression, behavioral disturbance. 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 PLAN: Stop the morning Risperdal 0.5 mg, continue 1 mg at bedtime. Valproic acid level low at 31, increase Depakote ER from 750 at bedtime to p.o. 1000 mg at bedtime. Check CBC, CMP, valproic acid level in 3 days. Continue rest unchanged. MAN Bryant MARIN MD DR: EVARISTO/noé JOB#: [id number] / [id number]
[2018-03-26 05:51] VITALS: BP 133/68
[2018-03-26] MEDS: ASPIRIN 81 MG TAB.CHEW PO SCH (08:02)
[2018-03-26] MEDS: CALCIUM CARBONATE 500 MG TAB.CHEW PO SCH ×2 (08:02→19:34)
[2018-03-26] MEDS: VENLAFAXINE XR 37.5 MG CAP.ER.24H. PO SCH (08:02)
[2018-03-26] MEDS: MAGNESIUM OXIDE 400 MG TABLET PO SCH (08:02)
[2018-03-26] MEDS: CHOLECALCIFEROL (VITAMIN D3) 1,000 UNIT TABLET PO SCH (08:03)
[2018-03-26] MEDS: NYSTATIN 100,000 UNIT/GM TOPICAL CREAM 15GM TUBE. TP SCH ×2 (08:03→19:37)
[2018-03-26] MEDS: VITS A & D/LANOLIN TOPICAL OINTMENT 56GM TUBE. TP SCH ×2 (08:03→19:37)
[2018-03-26] MEDS: LACTOBACILLUS RHAMNOSUS GG 1 CAPSULE. PO SCH ×2 (08:19→19:34)
[2018-03-26 15:43] VITALS: BP 124/78
[2018-03-26] MEDS: NIACIN ER 250 MG TABLET.ER PO SCH (17:07)
[2018-03-26] MEDS: traZODone 150 MG TABLET. PO SCH (19:34)
[2018-03-26] MEDS: DIVALPROEX ER 500 MG TAB.ER.24H PO SCH (19:34)
[2018-03-26] MEDS: SENNOSIDES 8.6 MG TABLET PO SCH (19:34)
[2018-03-26] MEDS: MELATONIN 3 MG TABLET PO SCH (19:34)
[2018-03-26] MEDS: DONEPEZIL HCL 10 MG TABLET PO SCH (19:34)
[2018-03-26] MEDS: DOCUSATE SODIUM 100 MG CAPSULE PO SCH (19:34)
[2018-03-26] MEDS: risperiDONE 1 MG TABLET. PO SCH (19:34)
[2018-03-26] MEDS: SIMVASTATIN 40 MG TABLET. PO SCH (19:34)
[2018-03-26] MEDS: clonazePAM 0.5 MG TABLET PO SCH (19:37)
--- NOTE | 2018-03-26 20:50 | PDOC ---
Exam Note: Bonilla Note: Please also refer to the separate dictated note~for this date of service dictated separately.~Patient seen individually. Discussed the patient with Nursing staff reviewed the chart.~Reviewed interim history and current functioning. Reviewed vital signs,~Labs/ Radiology~and current medications noted below. Continue current treatment with the changes noted in the dictated addendum note Assessment: Vital Signs: Vital Signs Date Time Temp Pulse Resp B/P (MAP) Pulse Ox O2 Delivery O2 Flow Rate FiO2 03/26/18 15:43 97.2 81 20 124/78 (93) 96 03/23/18 15:49 Room Air I&O Intake and Output 03/26/18 07:01 Intake Total 2040 ml Output Total 1 ml Balance 2039 ml Intake Oral 2040 ml Output Urine Total 1 ml # Voids 1 # Bowel Movements 1 Labs: Laboratory Tests Test 03/25/18 21:02 03/26/18 07:39 Glucose (Fingerstick) 110 mg/dL (70-99) H 109 mg/dL (70-99) H Current Medications: Meds: Current Medications Acetaminophen (Tylenol) 650 mg PRN Q6HRS PRN PO PAIN / TEMP; Start 03/17/18 at 01:15; Status UNV Multi-Ingredient Ointment (Analgesic [place]) 1 marlen PRN QID PRN TP MUSCLE PAIN; Start 03/17/18 at 01:15 Al Hydroxide/Mg Hydroxide (Mylanta Plus Xs) 15 ml PRN AFTMEALHC PRN PO DYSPEPSIA; Start 03/17/18 at 01:15 Magnesium Hydroxide (Milk Of Magnesia) 2,400 mg PRN QHS PRN PO CONSTIPATION; Start 03/17/18 at 01:15 Clonazepam (KlonoPIN) 0.5 mg BID PO Last administered on 03/18/18at 19:55; Start 03/17/18 at 09:00; Stop 03/18/18 at 20:38; Status DC Clonazepam (KlonoPIN) 0.5 mg PRN DAILY PRN PO ANXIETY / AGITATION; Start at 01:15 Valproic Acid (Depakene) 250 mg HS PO ; Start 03/17/18 at 21:00; Stop 03/17/18 at 21:00; Status DC Donepezil HCl (Aricept) 10 mg QHS PO Last administered on 03/26/18 19:34; Start 03/17/18 at 21:00 Memantine (Namenda) 2.5 mg BID PO Last administered on 03/17/18at 07:54; Start 03/17/18 at 09:00; Stop 03/17/18 at 21:01; Status DC Risperidone (RisperDAL) 1 mg BID PO Last administered on 03/21/18 07:38; Start 03/17/18 at 09:00; Stop 03/21/18 at 16:11; Status DC Trazodone HCl (Desyrel) 150 mg QHS PO Last administered on 03/26/18 19:34; Start 03/17/18 at 21:00 Venlafaxine HCl (Effexor Xr) 37.5 mg DAILY PO ; Start 03/17/18 at 09:00; Stop at 09:00; Status DC Acetaminophen (Tylenol) 650 mg PRN Q6HRS PRN PO PAIN / TEMP; Start 03/17/18 at 01:30 Calcium Carbonate/ Glycine (Tums) 500 mg BID PO Last administered on 03/26/18 19:34; Start 03/17/18 at 09:00 Vitamin D (Vitamin D3) 2,000 unit DAILY PO Last administered on 03/26/18 08:03 ; Start 03/17/18 at 09:00 Simvastatin (Zocor) 40 mg HS PO Last administered on 03/26/18 19:34; Start 06/24 at 21:00 Trimethoprim/ Sulfamethoxazole (Bactrim Ds) 1 tab DAILY PO Last administered on 03/23/18at 08:52; Start 03/17/18 at 09:00; Stop 03/24/18 at 08:43; Status DC Vitamin A/Vitamin D (Vitamin A & D Ointment) 1 marlen BID TP Last administered on 03/26/18 19:37; Start 03/17/18 at 09:00 Aspirin (Children'S Aspirin) 81 mg DAILYWBKFT PO Last administered on 08:02; Start 03/17/18 at 08:00 Docusate Sodium (Colace) 200 mg HS PO Last administered on 03/26/18 19:34; Start 03/17/18 at 21:00 Magnesium Oxide (Magnesium Oxide) 400 mg DAILY PO Last administered on 08:02; Start 03/17/18 at 09:00 Niacin (Slo-Niacin) 750 mg QEVNG PO Last administered on 03/26/18 17:07; Start 03/17/18 at 18:00 Nystatin (Mycostatin) 1 marlen BID TP Last administered on 03/26/18 19:37; Start 03/17/18 at 09:00 Phenyleph/Shark Oil/Min Oil/Petrol (Preparation H) 1 marlen PRN Q6HRS PRN RC RECTAL PAIN Last administered on 03/18/18 19:57; Start 03/17/18 at 01:30 Sennosides (Senna) 17.2 mg HS PO Last administered on 03/26/18 19:34; Start at 21:00 Venlafaxine HCl (Effexor Xr) 225 mg DAILY PO Last administered on 03/26/18 08: 02; Start 03/17/18 at 09:00 Divalproex Sodium (Depakote Er) 500 mg QHS PO Last administered on 03/20/18at 20 :14; Start 03/17/18 at 21:00; Stop 03/21/18 at 16:11; Status DC Clonazepam (KlonoPIN) 0.25 mg BID PO Last administered on 03/25/18at 08:49; Start 03/18/18 at 21:00; Stop 03/25/18 at 18:25; Status DC Lactobacillus Rhamnosus (Culturelle) 1 cap BID PO Last administered on 19:34; Start 03/19/18 at 21:00; Stop 03/27/18 at 20:59 Divalproex Sodium (Depakote Er) 500 mg QHS PO Last administered on 03/23/18 19 :52; Start 03/21/18 at 21:00; Stop 03/24/18 at 13:42; Status DC Risperidone (RisperDAL) 1 mg HS PO Last administered on 03/26/18 19:34; Start 03/21/18 at 21:00 Melatonin 3 mg QHS PO Last administered on 03/26/18 19:34; Start 03/21/18 at 21:00 Risperidone (RisperDAL) 0.5 mg DAILY PO Last administered on 03/24/18at 09:01; Start 03/22/18 at 09:00; Stop 03/24/18 at 13:42; Status DC Divalproex Sodium (Depakote Er) 250 mg QHS PO Last administered on 03/23/18at 19 :52; Start 03/21/18 at 21:00; Stop 03/24/18 at 13:42; Status DC Divalproex Sodium (Depakote Er) 1,000 mg QHS PO Last administered on 03/26/18at 19:34; Start 03/24/18 at 21:00 Clonazepam (KlonoPIN) 0.25 mg HS PO Last administered on 03/26/18 19:37; Start 03/25/18 at 21:00 Active Scripts Active Reported Preparation H Cream (Phenyleph/Pramoxin/Glycr/W.pet) 26 Gm Cream..g. 1 Marlen RC PRN Q6HRS PRN Nystatin 15 Gm Cream..g. 1 Marlen TP BID A and D Ointment (Vits A and D/White Pet/Lanolin) 42.5 Gm Oint...g. 1 Marlen TP BID Vitamin D3 (Cholecalciferol (Vitamin D3)) 1,000 Unit Tablet 2,000 Unit PO DAILY Venlafaxine Hcl Er (Venlafaxine Hcl) 225 Mg Tab.er.24 225 Mg PO DAILY Valproic Acid 250 Mg Capsule 250 Mg PO HS Trazodone Hcl 150 Mg Tablet 150 Mg PO HS Simvastatin 40 Mg Tablet 40 Mg PO HS Senna Lax (Sennosides) 8.6 Mg Tablet 17.2 Mg PO HS Risperidone 1 Mg Tablet 1 Mg PO BID Niacin Er (Niacin) 750 Mg Tab.er.24h 750 Mg PO HS Namenda (Memantine Hcl) 10 Mg Tablet 2.5 Mg PO BID Magnesium Oxide 400 Mg Tablet 400 Mg PO DAILY Donepezil Hcl 10 Mg Tablet 10 Mg PO HS Colace (Docusate Sodium) 100 Mg Capsule 200 Mg PO HS Clonazepam 0.5 Mg Tablet 0.5 Mg PO BID Clonazepam 0.5 Mg Tablet 0.5 Mg PO PRN DAILY PRN Grady-Gest (Calcium Carbonate) 200 Mg Tab.chew 500 Mg PO BID Bactrim Ds Tablet (Sulfamethoxazole/Trimethoprim) 1 Each Tablet 1 Tab PO DAILY Aspirin 81 Mg Tab.chew 81 Mg PO DAILY Acetaminophen 325 Mg Tablet 650 Mg PO PRN Q6HRS PRN I have reviewed the current psychotropics carefully including drug interactions. Risk benefit ratio favors no change other than as noted in my dictated progress note. Diagnosis: Problems: (1) Dementia with behavioral disturbance (2) Anxiety disorder (3) Dementia, vascular, with delusions (4) Dementia, vascular, with depression (5) Dementia in Alzheimer's disease with delusions (6) Dementia in Alzheimer's disease with depression (7) Impulse control disorder CELESTE MARIN MD Mar 26, 2018 20:50
--- NOTE | 2018-03-26 22:46 | PN ---
DATE: 03/25/2018 PSYCHIATRIC PROGRESS NOTE This is a late entry, 03/25, covers elements not covered in my initial note. SUBJECTIVE: I met with the patient morning of 03/25. The patient slept 8 hours previous evening. He is not agitated, seems to be quite pleasant, smiling at staff. A little more expressive as we have lowered his Klonopin and Risperdal. He remains forgetful, confused with short-term memory deficits. REVIEW OF SYSTEMS: No CV, , pulmonary, eye, ENT system symptoms on review. MENTAL STATUS EXAM: Oriented to himself. Insight, judgment, recent and remote memory, attention, concentration, fund of knowledge poor, consistent with his diagnosis mentioned in my initial note. PLAN: We will check labs the morning of 03/27. Discontinue the a.m. Klonopin. Continue rest unchanged from initial note. MAN Bryant MARIN MD DR: EVARISTO/noé JOB#: [id number] / [id number]
[2018-03-27 05:37] VITALS: BP 116/71
[2018-03-27 07:12] LABS: BASO # 0.1 x10^3/uL (0.0-0.2); BASO % 1 % (0-3); EOS # 0.4 x10^3/uL (0.0-0.7); EOS % 5 % (0-3); HEMOGLOBIN 13.8 g/dL (13.0-17.5); LYMPH # 2.3 x10^3/uL (1.0-4.8); LYMPH % 28 % (24-48); MEAN CORPUSCULAR HEMOGLOBIN 30 pg (25-35); MEAN CORPUSCULAR HGB CONC 33 g/dL (31-37); MEAN CORPUSCULAR VOLUME 90 fL (79-100); MONO # 0.9 x10^3/uL (0.0-1.1); MONO % 11 % (0-9); NEUT # 4.6 x10^3uL (1.8-7.7); NEUT % 56 % (31-73); PLATELET COUNT 272 x10^3/uL (140-400); RED BLOOD COUNT 4.68 x10^6/uL (4.30-5.70); RED CELL DISTRIBUTION WIDTH 14.2 % (11.5-14.5); WHITE BLOOD COUNT 8.2 x10^3/uL (4.0-11.0)
[2018-03-27 07:26] LABS: ALBUMIN 3.1 g/dL (3.4-5.0); ALBUMIN/GLOBULIN RATIO 0.9 (1.0-1.7); CALCIUM 8.7 mg/dL (8.5-10.1); GFR 73.7; POTASSIUM 4.4 mmol/L (3.5-5.1); TOTAL BILIRUBIN 0.5 mg/dL (0.2-1.0); TOTAL PROTEIN 6.5 g/dL (6.4-8.2)
[2018-03-27 07:29] LABS: VAL ACID 53 mcg/mL (50-100)
[2018-03-27] MEDS: LACTOBACILLUS RHAMNOSUS GG 1 CAPSULE. PO SCH (08:33)
[2018-03-27] MEDS: VENLAFAXINE XR 37.5 MG CAP.ER.24H. PO SCH (08:33)
[2018-03-27] MEDS: CALCIUM CARBONATE 500 MG TAB.CHEW PO SCH ×2 (08:33→20:50)
[2018-03-27] MEDS: MAGNESIUM OXIDE 400 MG TABLET PO SCH (08:33)
[2018-03-27] MEDS: ASPIRIN 81 MG TAB.CHEW PO SCH (08:33)
[2018-03-27] MEDS: CHOLECALCIFEROL (VITAMIN D3) 1,000 UNIT TABLET PO SCH (08:33)
[2018-03-27] MEDS: NYSTATIN 100,000 UNIT/GM TOPICAL CREAM 15GM TUBE. TP SCH ×2 (08:34→20:54)
[2018-03-27] MEDS: VITS A & D/LANOLIN TOPICAL OINTMENT 56GM TUBE. TP SCH ×2 (08:34→20:55)
[2018-03-27 15:56] VITALS: BP 129/87
[2018-03-27 17:57] VITALS: BP 117/74
[2018-03-27] MEDS: NIACIN ER 250 MG TABLET.ER PO SCH (18:05)
--- NOTE | 2018-03-27 20:45 | PDOC ---
Exam Note: Bonilla Note: Please also refer to the separate dictated note~for this date of service dictated separately.~Patient seen individually. Discussed the patient with Nursing staff reviewed the chart.~Reviewed interim history and current functioning. Reviewed vital signs,~Labs/ Radiology~and current medications noted below. Continue current treatment with the changes noted in the dictated addendum note Assessment: Vital Signs: Vital Signs Date Time Temp Pulse Resp B/P (MAP) Pulse Ox O2 Delivery O2 Flow Rate FiO2 03/27/18 17:57 89 117/74 (88) Room Air 03/27/18 15:56 98.6 20 95 I&O Intake and Output 03/27/18 07:00 Intake Total 1320 ml Balance 1320 ml Intake Oral 1320 ml # Voids 1 Labs: Laboratory Tests Test 03/27/18 07:00 03/27/18 07:09 03/27/18 17:50 White Blood Count 8.2 x10^3/uL (4.0-11.0) Red Blood Count 4.68 x10^6/uL (4.30-5.70) Hemoglobin 13.8 g/dL (13.0-17.5) Hematocrit 42.0 % (39.0-53.0) Mean Corpuscular Volume 90 fL (79-100) Mean Corpuscular Hemoglobin 30 pg (25-35) Mean Corpuscular Hemoglobin Concent 33 g/dL (31-37) Red Cell Distribution Width 14.2 % (11.5-14.5) Platelet Count 272 x10^3/uL (140-400) Neutrophils (%) (Auto) 56 % (31-73) Lymphocytes (%) (Auto) 28 % (24-48) Monocytes (%) (Auto) 11 % (0-9) H Eosinophils (%) (Auto) 5 % (0-3) H Basophils (%) (Auto) 1 % (0-3) Neutrophils # (Auto) 4.6 x10^3uL (1.8-7.7) Lymphocytes # (Auto) 2.3 x10^3/uL (1.0-4.8) Monocytes # (Auto) 0.9 x10^3/uL (0.0-1.1) Eosinophils # (Auto) 0.4 x10^3/uL (0.0-0.7) Basophils # (Auto) 0.1 x10^3/uL (0.0-0.2) Sodium Level 141 mmol/L (136-145) Potassium Level 4.4 mmol/L (3.5-5.1) Chloride Level 106 mmol/L (98-107) Carbon Dioxide Level 25 mmol/L (21-32) Anion Gap 10 (6-14) Blood Urea Nitrogen 10 mg/dL (8-26) Creatinine 1.0 mg/dL (0.7-1.3) Estimated GFR (Cockcroft-Gault) 73.7 BUN/Creatinine Ratio 10 (6-20) Glucose Level 119 mg/dL (70-99) H Calcium Level 8.7 mg/dL (8.5-10.1) Total Bilirubin 0.5 mg/dL (0.2-1.0) Aspartate Amino Transferase (AST) 20 U/L (15-37) Alanine Aminotransferase (ALT) 31 U/L (16-63) Alkaline Phosphatase 60 U/L (46-116) Total Protein 6.5 g/dL (6.4-8.2) Albumin 3.1 g/dL (3.4-5.0) L Albumin/Globulin Ratio 0.9 (1.0-1.7) L Valproic Acid Level 53 mcg/mL (50-100) Valproic Acid Last Dose Date 03/25/18 Valproic Acid Last Dose Time 2100 Glucose (Fingerstick) 118 mg/dL (70-99) H 140 mg/dL (70-99) H Current Medications: Meds: Current Medications Acetaminophen (Tylenol) 650 mg PRN Q6HRS PRN PO PAIN / TEMP; Start 03/17/18 at 01:15; Status UNV Multi-Ingredient Ointment (Analgesic Cosby) 1 marlen PRN QID PRN TP MUSCLE PAIN; Start 03/17/18 at 01:15 Al Hydroxide/Mg Hydroxide (Mylanta Plus Xs) 15 ml PRN AFTMEALHC PRN PO DYSPEPSIA; Start 03/17/18 at 01:15 Magnesium Hydroxide (Milk Of Magnesia) 2,400 mg PRN QHS PRN PO CONSTIPATION; Start 03/17/18 at 01:15 Clonazepam (KlonoPIN) 0.5 mg BID PO Last administered on 03/18/18at 19:55; Start 03/17/18 at 09:00; Stop 03/18/18 at 20:38; Status DC Clonazepam (KlonoPIN) 0.5 mg PRN DAILY PRN PO ANXIETY / AGITATION; Start at 01:15 Valproic Acid (Depakene) 250 mg HS PO ; Start 03/17/18 at 21:00; Stop 03/17/18 at 21:00; Status DC Donepezil HCl (Aricept) 10 mg QHS PO Last administered on 03/26/18at 19:34; Start 03/17/18 at 21:00 Memantine (Namenda) 2.5 mg BID PO Last administered on 03/17/18at 07:54; Start 03/17/18 at 09:00; Stop 03/17/18 at 21:01; Status DC Risperidone (RisperDAL) 1 mg BID PO Last administered on 03/21/18at 07:38; Start 03/17/18 at 09:00; Stop 03/21/18 at 16:11; Status DC Trazodone HCl (Desyrel) 150 mg QHS PO Last administered on 03/26/18at 19:34; Start 03/17/18 at 21:00 Venlafaxine HCl (Effexor Xr) 37.5 mg DAILY PO ; Start 03/17/18 at 09:00; Stop at 09:00; Status DC Acetaminophen (Tylenol) 650 mg PRN Q6HRS PRN PO PAIN / TEMP; Start 03/17/18 at 01:30 Calcium Carbonate/ Glycine (Tums) 500 mg BID PO Last administered on 03/27/18at 08:33; Start 03/17/18 at 09:00 Vitamin D (Vitamin D3) 2,000 unit DAILY PO Last administered on 03/27/18at 08:33 ; Start 03/17/18 at 09:00 Simvastatin (Zocor) 40 mg HS PO Last administered on 03/26/18at 19:34; Start 06/24 at 21:00 Trimethoprim/ Sulfamethoxazole (Bactrim Ds) 1 tab DAILY PO Last administered on 03/23/18at 08:52; Start 03/17/18 at 09:00; Stop 03/24/18 at 08:43; Status DC Vitamin A/Vitamin D (Vitamin A & D Ointment) 1 marlen BID TP Last administered on 03/27/18 08:34; Start 03/17/18 at 09:00 Aspirin (Children'S Aspirin) 81 mg DAILYWBKFT PO Last administered on at 08:33; Start 03/17/18 at 08:00 Docusate Sodium (Colace) 200 mg HS PO Last administered on 03/26/18 19:34; Start 03/17/18 at 21:00 Magnesium Oxide (Magnesium Oxide) 400 mg DAILY PO Last administered on 08:33; Start 03/17/18 at 09:00 Niacin (Slo-Niacin) 750 mg QEVNG PO Last administered on 03/27/18 18:05; Start 03/17/18 at 18:00 Nystatin (Mycostatin) 1 marlen BID TP Last administered on 03/27/18at 08:34; Start 03/17/18 at 09:00 Phenyleph/Shark Oil/Min Oil/Petrol (Preparation H) 1 marlen PRN Q6HRS PRN RC RECTAL PAIN Last administered on 03/18/18at 19:57; Start 03/17/18 at 01:30 Sennosides (Senna) 17.2 mg HS PO Last administered on 03/26/18 19:34; Start at 21:00 Venlafaxine HCl (Effexor Xr) 225 mg DAILY PO Last administered on 03/27/18at 08: 33; Start 03/17/18 at 09:00 Divalproex Sodium (Depakote Er) 500 mg QHS PO Last administered on 03/20/18at 20 :14; Start 03/17/18 at 21:00; Stop 03/21/18 at 16:11; Status DC Clonazepam (KlonoPIN) 0.25 mg BID PO Last administered on 03/25/18at 08:49; Start 03/18/18 at 21:00; Stop 03/25/18 at 18:25; Status DC Lactobacillus Rhamnosus (Culturelle) 1 cap BID PO Last administered on at 08:33; Start 03/19/18 at 21:00; Stop 03/27/18 at 20:59 Divalproex Sodium (Depakote Er) 500 mg QHS PO Last administered on 03/23/18 19 :52; Start 03/21/18 at 21:00; Stop 03/24/18 at 13:42; Status DC Risperidone (RisperDAL) 1 mg HS PO Last administered on 03/26/18 19:34; Start 03/21/18 at 21:00; Stop 03/27/18 at 16:22; Status DC Melatonin 3 mg QHS PO Last administered on 03/26/18 19:34; Start 03/21/18 at 21:00 Risperidone (RisperDAL) 0.5 mg DAILY PO Last administered on 03/24/18at 09:01; Start 03/22/18 at 09:00; Stop 03/24/18 at 13:42; Status DC Divalproex Sodium (Depakote Er) 250 mg QHS PO Last administered on 03/23/18 19 :52; Start 03/21/18 at 21:00; Stop 03/24/18 at 13:42; Status DC Divalproex Sodium (Depakote Er) 1,000 mg QHS PO Last administered on 03/26/18at 19:34; Start 03/24/18 at 21:00 Clonazepam (KlonoPIN) 0.25 mg HS PO Last administered on 03/26/18at 19:37; Start 03/25/18 at 21:00 Risperidone (RisperDAL) 0.5 mg HS PO ; Start 03/27/18 at 21:00 Active Scripts Active Reported Preparation H Cream (Phenyleph/Pramoxin/Glycr/W.pet) 26 Gm Cream..g. 1 Marlen RC PRN Q6HRS PRN Nystatin 15 Gm Cream..g. 1 Marlen TP BID A and D Ointment (Vits A and D/White Pet/Lanolin) 42.5 Gm Oint...g. 1 Marlen TP BID Vitamin D3 (Cholecalciferol (Vitamin D3)) 1,000 Unit Tablet 2,000 Unit PO DAILY Venlafaxine Hcl Er (Venlafaxine Hcl) 225 Mg Tab.er.24 225 Mg PO DAILY Valproic Acid 250 Mg Capsule 250 Mg PO HS Trazodone Hcl 150 Mg Tablet 150 Mg PO HS Simvastatin 40 Mg Tablet 40 Mg PO HS Senna Lax (Sennosides) 8.6 Mg Tablet 17.2 Mg PO HS Risperidone 1 Mg Tablet 1 Mg PO BID Niacin Er (Niacin) 750 Mg Tab.er.24h 750 Mg PO HS Namenda (Memantine Hcl) 10 Mg Tablet 2.5 Mg PO BID Magnesium Oxide 400 Mg Tablet 400 Mg PO DAILY Donepezil Hcl 10 Mg Tablet 10 Mg PO HS Colace (Docusate Sodium) 100 Mg Capsule 200 Mg PO HS Clonazepam 0.5 Mg Tablet 0.5 Mg PO BID Clonazepam 0.5 Mg Tablet 0.5 Mg PO PRN DAILY PRN Grady-Gest (Calcium Carbonate) 200 Mg Tab.chew 500 Mg PO BID Bactrim Ds Tablet (Sulfamethoxazole/Trimethoprim) 1 Each Tablet 1 Tab PO DAILY Aspirin 81 Mg Tab.chew 81 Mg PO DAILY Acetaminophen 325 Mg Tablet 650 Mg PO PRN Q6HRS PRN I have reviewed the current psychotropics carefully including drug interactions. Risk benefit ratio favors no change other than as noted in my dictated progress note. Diagnosis: Problems: (1) Dementia with behavioral disturbance (2) Anxiety disorder (3) Dementia, vascular, with delusions (4) Dementia, vascular, with depression (5) Dementia in Alzheimer's disease with delusions (6) Dementia in Alzheimer's disease with depression (7) Impulse control disorder CELESTE MARIN MD Mar 27, 2018 20:45
[2018-03-27] MEDS: MELATONIN 3 MG TABLET PO SCH (20:49)
[2018-03-27] MEDS: SIMVASTATIN 40 MG TABLET. PO SCH (20:49)
[2018-03-27] MEDS: DIVALPROEX ER 500 MG TAB.ER.24H PO SCH (20:49)
[2018-03-27] MEDS: DOCUSATE SODIUM 100 MG CAPSULE PO SCH (20:49)
[2018-03-27] MEDS: DONEPEZIL HCL 10 MG TABLET PO SCH (20:50)
[2018-03-27] MEDS: traZODone 150 MG TABLET. PO SCH (20:50)
[2018-03-27] MEDS: SENNOSIDES 8.6 MG TABLET PO SCH (20:50)
[2018-03-27] MEDS: risperiDONE 0.5 MG TABLET. PO SCH (20:54)
[2018-03-27] MEDS: clonazePAM 0.5 MG TABLET PO SCH (20:54)
--- NOTE | 2018-03-28 00:36 | PN ---
DATE: 03/26/2018 PSYCHIATRIC PROGRESS NOTE This is a late entry, 03/26, covers elements not covered in my initial note. SUBJECTIVE: I met with the patient in the evening. The patient slept 6-1/2 hours previous evening. He is much more expressive calling the nursing staff "hey baby" in a jovial manner, smiling at staff. Seems a little better since we have reduced his Klonopin and Risperdal, but we will have to monitor closely. REVIEW OF SYSTEMS: No CV, , pulmonary, eye, ENT system symptoms on review. Reliability poor. MENTAL STATUS EXAM: Oriented to himself. Insight, judgment, recent and remote memory, attention, concentration, fund of knowledge poor, consistent with his diagnosis mentioned in my initial note. PLAN: No change from initial note. Continue to taper Klonopin and Risperdal. Maintain rest per initial note. MAN Bryant MARIN MD DR: EVARISTO/noé JOB#: [id number] / [id number]
[2018-03-28] MEDS: clonazePAM 0.5 MG TABLET PO SCH (01:35)
[2018-03-28] MEDS: PHENYLEPH/MINERAL OIL/PETROLAT RECTAL OINTMENT 28GM TUBE. RC PRN (01:39)
[2018-03-28 05:30] VITALS: BP 128/85
[2018-03-28] MEDS: VENLAFAXINE XR 37.5 MG CAP.ER.24H. PO SCH (07:48)
[2018-03-28] MEDS: CALCIUM CARBONATE 500 MG TAB.CHEW PO SCH ×2 (07:48→20:18)
[2018-03-28] MEDS: NYSTATIN 100,000 UNIT/GM TOPICAL CREAM 15GM TUBE. TP SCH ×2 (07:49→20:18)
[2018-03-28] MEDS: ASPIRIN 81 MG TAB.CHEW PO SCH (07:49)
[2018-03-28] MEDS: CHOLECALCIFEROL (VITAMIN D3) 1,000 UNIT TABLET PO SCH (07:49)
[2018-03-28] MEDS: MAGNESIUM OXIDE 400 MG TABLET PO SCH (07:49)
[2018-03-28] MEDS: VITS A & D/LANOLIN TOPICAL OINTMENT 56GM TUBE. TP SCH ×2 (07:50→20:18)
[2018-03-28 15:53] VITALS: BP 151/78
[2018-03-28] MEDS: NIACIN ER 250 MG TABLET.ER PO SCH (17:16)
[2018-03-28] MEDS: MELATONIN 3 MG TABLET PO SCH (20:17)
[2018-03-28] MEDS: DONEPEZIL HCL 10 MG TABLET PO SCH (20:17)
[2018-03-28] MEDS: DOCUSATE SODIUM 100 MG CAPSULE PO SCH (20:17)
[2018-03-28] MEDS: risperiDONE 0.5 MG TABLET. PO SCH (20:18)
[2018-03-28] MEDS: SIMVASTATIN 40 MG TABLET. PO SCH (20:18)
[2018-03-28] MEDS: traZODone 150 MG TABLET. PO SCH (20:18)
[2018-03-28] MEDS: SENNOSIDES 8.6 MG TABLET PO SCH (20:18)
[2018-03-28] MEDS: DIVALPROEX ER 500 MG TAB.ER.24H PO SCH (20:19)
--- NOTE | 2018-03-28 20:53 | PDOC ---
Exam Note: Bonilla Note: Please also refer to the separate dictated note~for this date of service dictated separately.~Patient seen individually. Discussed the patient with Nursing staff reviewed the chart.~Reviewed interim history and current functioning. Reviewed vital signs,~Labs/ Radiology~and current medications noted below. Continue current treatment with the changes noted in the dictated addendum note Assessment: Vital Signs: Vital Signs Date Time Temp Pulse Resp B/P (MAP) Pulse Ox O2 Delivery O2 Flow Rate FiO2 03/28/18 15:53 97.9 85 18 151/78 (102) 94 03/27/18 17:57 Room Air I&O Intake and Output 03/28/18 07:00 Intake Total 1080 ml Balance 1080 ml Intake Oral 1080 ml # Bowel Movements 1 Labs: Laboratory Tests Test 03/28/18 07:17 Glucose (Fingerstick) 118 mg/dL (70-99) H Current Medications: Meds: Current Medications Acetaminophen (Tylenol) 650 mg PRN Q6HRS PRN PO PAIN / TEMP; Start 03/17/18 at 01:15; Status UNV Multi-Ingredient Ointment (Analgesic [place]) 1 marlen PRN QID PRN TP MUSCLE PAIN; Start 03/17/18 at 01:15 Al Hydroxide/Mg Hydroxide (Mylanta Plus Xs) 15 ml PRN AFTMEALHC PRN PO DYSPEPSIA; Start 03/17/18 at 01:15 Magnesium Hydroxide (Milk Of Magnesia) 2,400 mg PRN QHS PRN PO CONSTIPATION; Start 03/17/18 at 01:15 Clonazepam (KlonoPIN) 0.5 mg BID PO Last administered on 03/18/18at 19:55; Start 03/17/18 at 09:00; Stop 03/18/18 at 20:38; Status DC Clonazepam (KlonoPIN) 0.5 mg PRN DAILY PRN PO ANXIETY / AGITATION; Start at 01:15 Valproic Acid (Depakene) 250 mg HS PO ; Start 03/17/18 at 21:00; Stop 03/17/18 at 21:00; Status DC Donepezil HCl (Aricept) 10 mg QHS PO Last administered on 03/28/18at 20:17; Start 03/17/18 at 21:00 Memantine (Namenda) 2.5 mg BID PO Last administered on 03/17/18at 07:54; Start 03/17/18 at 09:00; Stop 03/17/18 at 21:01; Status DC Risperidone (RisperDAL) 1 mg BID PO Last administered on 03/21/18at 07:38; Start 03/17/18 at 09:00; Stop 03/21/18 at 16:11; Status DC Trazodone HCl (Desyrel) 150 mg QHS PO Last administered on 03/28/18at 20:18; Start 03/17/18 at 21:00 Venlafaxine HCl (Effexor Xr) 37.5 mg DAILY PO ; Start 03/17/18 at 09:00; Stop at 09:00; Status DC Acetaminophen (Tylenol) 650 mg PRN Q6HRS PRN PO PAIN / TEMP; Start 03/17/18 at 01:30 Calcium Carbonate/ Glycine (Tums) 500 mg BID PO Last administered on 03/28/18at 20:18; Start 03/17/18 at 09:00 Vitamin D (Vitamin D3) 2,000 unit DAILY PO Last administered on 03/28/18at 07:49 ; Start 03/17/18 at 09:00 Simvastatin (Zocor) 40 mg HS PO Last administered on 03/28/18 20:18; Start 06/24 at 21:00 Trimethoprim/ Sulfamethoxazole (Bactrim Ds) 1 tab DAILY PO Last administered on 03/23/18at 08:52; Start 03/17/18 at 09:00; Stop 03/24/18 at 08:43; Status DC Vitamin A/Vitamin D (Vitamin A & D Ointment) 1 marlen BID TP Last administered on 03/28/18at 20:18; Start 03/17/18 at 09:00 Aspirin (Children'S Aspirin) 81 mg DAILYWBKFT PO Last administered on at 07:49; Start 03/17/18 at 08:00 Docusate Sodium (Colace) 200 mg HS PO Last administered on 03/28/18at 20:17; Start 03/17/18 at 21:00 Magnesium Oxide (Magnesium Oxide) 400 mg DAILY PO Last administered on at 07:49; Start 03/17/18 at 09:00 Niacin (Slo-Niacin) 750 mg QEVNG PO Last administered on 03/28/18 17:16; Start 03/17/18 at 18:00 Nystatin (Mycostatin) 1 marlen BID TP Last administered on 03/28/18 20:18; Start 03/17/18 at 09:00 Phenyleph/Shark Oil/Min Oil/Petrol (Preparation H) 1 marlen PRN Q6HRS PRN RC RECTAL PAIN Last administered on 03/28/18at 01:39; Start 03/17/18 at 01:30 Sennosides (Senna) 17.2 mg HS PO Last administered on 03/28/18 20:18; Start at 21:00 Venlafaxine HCl (Effexor Xr) 225 mg DAILY PO Last administered on 03/28/18 07: 48; Start 03/17/18 at 09:00; Stop 03/28/18 at 16:15; Status DC Divalproex Sodium (Depakote Er) 500 mg QHS PO Last administered on 03/20/18at 20 :14; Start 03/17/18 at 21:00; Stop 03/21/18 at 16:11; Status DC Clonazepam (KlonoPIN) 0.25 mg BID PO Last administered on 03/25/18at 08:49; Start 03/18/18 at 21:00; Stop 03/25/18 at 18:25; Status DC Lactobacillus Rhamnosus (Culturelle) 1 cap BID PO Last administered on at 08:33; Start 03/19/18 at 21:00; Stop 03/27/18 at 20:59; Status DC Divalproex Sodium (Depakote Er) 500 mg QHS PO Last administered on 03/23/18at 19 :52; Start 03/21/18 at 21:00; Stop 03/24/18 at 13:42; Status DC Risperidone (RisperDAL) 1 mg HS PO Last administered on 03/26/18at 19:34; Start 03/21/18 at 21:00; Stop 03/27/18 at 16:22; Status DC Melatonin 3 mg QHS PO Last administered on 03/27/18at 20:49; Start 03/21/18 at 21:00; Stop 03/28/18 at 16:15; Status DC Risperidone (RisperDAL) 0.5 mg DAILY PO Last administered on 03/24/18at 09:01; Start 03/22/18 at 09:00; Stop 03/24/18 at 13:42; Status DC Divalproex Sodium (Depakote Er) 250 mg QHS PO Last administered on 03/23/18at 19 :52; Start 03/21/18 at 21:00; Stop 03/24/18 at 13:42; Status DC Divalproex Sodium (Depakote Er) 1,000 mg QHS PO Last administered on 03/28/18at 20:19; Start 03/24/18 at 21:00 Clonazepam (KlonoPIN) 0.25 mg HS PO Last administered on 03/28/18at 01:35; Start 03/25/18 at 21:00 Risperidone (RisperDAL) 0.5 mg HS PO Last administered on 03/28/18at 20:18; Start 03/27/18 at 21:00 Melatonin 6 mg QHS PO Last administered on 03/28/18at 20:17; Start 03/28/18 at 21:00 Venlafaxine HCl (Effexor Xr) 187.5 mg DAILY PO ; Start 03/29/18 at 09:00 Clonazepam (KlonoPIN) 0.25 mg 1X ONCE PO Last administered on 03/28/18at 20:45 ; Start 03/28/18 at 21:00; Stop 03/28/18 at 21:01 Active Scripts Active Reported Preparation H Cream (Phenyleph/Pramoxin/Glycr/W.pet) 26 Gm Cream..g. 1 Marlen RC PRN Q6HRS PRN Nystatin 15 Gm Cream..g. 1 Marlen TP BID A and D Ointment (Vits A and D/White Pet/Lanolin) 42.5 Gm Oint...g. 1 Marlen TP BID Vitamin D3 (Cholecalciferol (Vitamin D3)) 1,000 Unit Tablet 2,000 Unit PO DAILY Venlafaxine Hcl Er (Venlafaxine Hcl) 225 Mg Tab.er.24 225 Mg PO DAILY Valproic Acid 250 Mg Capsule 250 Mg PO HS Trazodone Hcl 150 Mg Tablet 150 Mg PO HS Simvastatin 40 Mg Tablet 40 Mg PO HS Senna Lax (Sennosides) 8.6 Mg Tablet 17.2 Mg PO HS Risperidone 1 Mg Tablet 1 Mg PO BID Niacin Er (Niacin) 750 Mg Tab.er.24h 750 Mg PO HS Namenda (Memantine Hcl) 10 Mg Tablet 2.5 Mg PO BID Magnesium Oxide 400 Mg Tablet 400 Mg PO DAILY Donepezil Hcl 10 Mg Tablet 10 Mg PO HS Colace (Docusate Sodium) 100 Mg Capsule 200 Mg PO HS Clonazepam 0.5 Mg Tablet 0.5 Mg PO BID Clonazepam 0.5 Mg Tablet 0.5 Mg PO PRN DAILY PRN Grady-Gest (Calcium Carbonate) 200 Mg Tab.chew 500 Mg PO BID Bactrim Ds Tablet (Sulfamethoxazole/Trimethoprim) 1 Each Tablet 1 Tab PO DAILY Aspirin 81 Mg Tab.chew 81 Mg PO DAILY Acetaminophen 325 Mg Tablet 650 Mg PO PRN Q6HRS PRN I have reviewed the current psychotropics carefully including drug interactions. Risk benefit ratio favors no change other than as noted in my dictated progress note. Diagnosis: Problems: (1) Dementia with behavioral disturbance (2) Anxiety disorder (3) Dementia, vascular, with delusions (4) Dementia, vascular, with depression (5) Dementia in Alzheimer's disease with delusions (6) Dementia in Alzheimer's disease with depression (7) Impulse control disorder CELESTE MARIN MD Mar 28, 2018 20:53
[2018-03-28] MEDS ORDERED: clonazePAM 0.5 MG TABLET PO ONE (21:00)
--- NOTE | 2018-03-28 22:51 | PN ---
DATE: 03/27/2018 PSYCHIATRIC PROGRESS NOTE This is a late entry of 03/27/2018, covers elements not covered in my initial note. SUBJECTIVE: I met with the patient in the evening of 03/27/2018. The patient slept 6-1/2 hours previous evening. He has been otherwise confused, but cooperative, constantly shaking his legs. No CV, , pulmonary, eye, ENT system symptoms on review. He has not been aggressive, despite reduction of Klonopin and Risperdal. REVIEW OF SYSTEMS: No clear psychotic symptoms have emerged. MENTAL STATUS EXAM: Oriented to himself. Insight, judgment, recent and remote memory, attention, concentration, fund of knowledge poor, consistent with his diagnosis mentioned in my initial note. PLAN: Reduce the bedtime Risperdal from 1 mg down to 0.5 mg. Continue Klonopin, which has been reduced to 0.25 mg at bedtime. Maintain Depakote, which has been increased. We will repeat labs, level awaited. Effexor, trazodone, and Aricept along with melatonin. MAN Bryant MARIN MD DR: EVARISTO/noé JOB#: [id number] / [id number]
[2018-03-29 05:50] VITALS: BP 127/67
[2018-03-29] MEDS: MAGNESIUM OXIDE 400 MG TABLET PO SCH (08:58)
[2018-03-29] MEDS: CALCIUM CARBONATE 500 MG TAB.CHEW PO SCH ×2 (08:58→19:27)
[2018-03-29] MEDS: ASPIRIN 81 MG TAB.CHEW PO SCH (08:59)
[2018-03-29] MEDS: CHOLECALCIFEROL (VITAMIN D3) 1,000 UNIT TABLET PO SCH (08:59)
[2018-03-29] MEDS: VENLAFAXINE XR 37.5 MG CAP.ER.24H. PO SCH (09:00)
[2018-03-29] MEDS: NYSTATIN 100,000 UNIT/GM TOPICAL CREAM 15GM TUBE. TP SCH ×2 (09:01→19:31)
[2018-03-29] MEDS: VITS A & D/LANOLIN TOPICAL OINTMENT 56GM TUBE. TP SCH ×2 (09:01→19:31)
[2018-03-29 15:51] VITALS: BP 128/57
[2018-03-29] MEDS: NIACIN ER 250 MG TABLET.ER PO SCH (17:08)
[2018-03-29] MEDS: DONEPEZIL HCL 10 MG TABLET PO SCH (19:27)
[2018-03-29] MEDS: traZODone 150 MG TABLET. PO SCH (19:27)
[2018-03-29] MEDS: risperiDONE 0.5 MG TABLET. PO SCH (19:27)
[2018-03-29] MEDS: DOCUSATE SODIUM 100 MG CAPSULE PO SCH (19:28)
[2018-03-29] MEDS: MELATONIN 3 MG TABLET PO SCH (19:28)
[2018-03-29] MEDS: SIMVASTATIN 40 MG TABLET. PO SCH (19:28)
[2018-03-29] MEDS: SENNOSIDES 8.6 MG TABLET PO SCH (19:28)
[2018-03-29] MEDS: DIVALPROEX ER 500 MG TAB.ER.24H PO SCH (19:28)
[2018-03-29] MEDS: clonazePAM 0.5 MG TABLET PO SCH (19:30)
--- NOTE | 2018-03-29 20:28 | PDOC ---
Exam Note: Bonilla Note: Please also refer to the separate dictated note~for this date of service dictated separately.~Patient seen individually. Discussed the patient with Nursing staff reviewed the chart.~Reviewed interim history and current functioning. Reviewed vital signs,~Labs/ Radiology~and current medications noted below. Continue current treatment with the changes noted in the dictated addendum note Assessment: Vital Signs: Vital Signs Date Time Temp Pulse Resp B/P (MAP) Pulse Ox O2 Delivery O2 Flow Rate FiO2 03/29/18 15:51 97.2 78 18 128/57 (80) 95 Room Air I&O Intake and Output 03/29/18 07:00 Intake Total 900 ml Balance 900 ml Intake Oral 900 ml # Voids 1 # Bowel Movements 1 Labs: Laboratory Tests Test 03/29/18 07:09 Glucose (Fingerstick) 107 mg/dL (70-99) H Current Medications: Meds: Current Medications Acetaminophen (Tylenol) 650 mg PRN Q6HRS PRN PO PAIN / TEMP; Start 03/17/18 at 01:15; Status UNV Multi-Ingredient Ointment (Analgesic [place]) 1 marlen PRN QID PRN TP MUSCLE PAIN; Start 03/17/18 at 01:15 Al Hydroxide/Mg Hydroxide (Mylanta Plus Xs) 15 ml PRN AFTMEALHC PRN PO DYSPEPSIA; Start 03/17/18 at 01:15 Magnesium Hydroxide (Milk Of Magnesia) 2,400 mg PRN QHS PRN PO CONSTIPATION; Start 03/17/18 at 01:15 Clonazepam (KlonoPIN) 0.5 mg BID PO Last administered on 03/18/18at 19:55; Start 03/17/18 at 09:00; Stop 03/18/18 at 20:38; Status DC Clonazepam (KlonoPIN) 0.5 mg PRN DAILY PRN PO ANXIETY / AGITATION; Start at 01:15 Valproic Acid (Depakene) 250 mg HS PO ; Start 03/17/18 at 21:00; Stop 03/17/18 at 21:00; Status DC Donepezil HCl (Aricept) 10 mg QHS PO Last administered on 03/29/18at 19:27; Start 03/17/18 at 21:00 Memantine (Namenda) 2.5 mg BID PO Last administered on 03/17/18 07:54; Start 03/17/18 at 09:00; Stop 03/17/18 at 21:01; Status DC Risperidone (RisperDAL) 1 mg BID PO Last administered on 03/21/18at 07:38; Start 03/17/18 at 09:00; Stop 03/21/18 at 16:11; Status DC Trazodone HCl (Desyrel) 150 mg QHS PO Last administered on 03/29/18 19:27; Start 03/17/18 at 21:00 Venlafaxine HCl (Effexor Xr) 37.5 mg DAILY PO ; Start 03/17/18 at 09:00; Stop at 09:00; Status DC Acetaminophen (Tylenol) 650 mg PRN Q6HRS PRN PO PAIN / TEMP; Start 03/17/18 at 01:30 Calcium Carbonate/ Glycine (Tums) 500 mg BID PO Last administered on 03/29/18 19:27; Start 03/17/18 at 09:00 Vitamin D (Vitamin D3) 2,000 unit DAILY PO Last administered on 03/29/18 08:59 ; Start 03/17/18 at 09:00 Simvastatin (Zocor) 40 mg HS PO Last administered on 03/29/18 19:28; Start 06/24 at 21:00 Trimethoprim/ Sulfamethoxazole (Bactrim Ds) 1 tab DAILY PO Last administered on 03/23/18 08:52; Start 03/17/18 at 09:00; Stop 03/24/18 at 08:43; Status DC Vitamin A/Vitamin D (Vitamin A & D Ointment) 1 marlen BID TP Last administered on 03/29/18 19:31; Start 03/17/18 at 09:00 Aspirin (Children'S Aspirin) 81 mg DAILYWBKFT PO Last administered on 08:59; Start 03/17/18 at 08:00 Docusate Sodium (Colace) 200 mg HS PO Last administered on 03/29/18 19:28; Start 03/17/18 at 21:00 Magnesium Oxide (Magnesium Oxide) 400 mg DAILY PO Last administered on 08:58; Start 03/17/18 at 09:00 Niacin (Slo-Niacin) 750 mg QEVNG PO Last administered on 03/29/18 17:08; Start 03/17/18 at 18:00 Nystatin (Mycostatin) 1 marlen BID TP Last administered on 03/29/18 19:31; Start 03/17/18 at 09:00 Phenyleph/Shark Oil/Min Oil/Petrol (Preparation H) 1 marlen PRN Q6HRS PRN RC RECTAL PAIN Last administered on 03/28/18at 01:39; Start 03/17/18 at 01:30 Sennosides (Senna) 17.2 mg HS PO Last administered on 03/29/18 19:28; Start at 21:00 Venlafaxine HCl (Effexor Xr) 225 mg DAILY PO Last administered on 03/28/18 07: 48; Start 03/17/18 at 09:00; Stop 03/28/18 at 16:15; Status DC Divalproex Sodium (Depakote Er) 500 mg QHS PO Last administered on 03/20/18at 20 :14; Start 03/17/18 at 21:00; Stop 03/21/18 at 16:11; Status DC Clonazepam (KlonoPIN) 0.25 mg BID PO Last administered on 03/25/18at 08:49; Start 03/18/18 at 21:00; Stop 03/25/18 at 18:25; Status DC Lactobacillus Rhamnosus (Culturelle) 1 cap BID PO Last administered on at 08:33; Start 03/19/18 at 21:00; Stop 03/27/18 at 20:59; Status DC Divalproex Sodium (Depakote Er) 500 mg QHS PO Last administered on 03/23/18at 19 :52; Start 03/21/18 at 21:00; Stop 03/24/18 at 13:42; Status DC Risperidone (RisperDAL) 1 mg HS PO Last administered on 03/26/18at 19:34; Start 03/21/18 at 21:00; Stop 03/27/18 at 16:22; Status DC Melatonin 3 mg QHS PO Last administered on 03/27/18at 20:49; Start 03/21/18 at 21:00; Stop 03/28/18 at 16:15; Status DC Risperidone (RisperDAL) 0.5 mg DAILY PO Last administered on 03/24/18 09:01; Start 03/22/18 at 09:00; Stop 03/24/18 at 13:42; Status DC Divalproex Sodium (Depakote Er) 250 mg QHS PO Last administered on 03/23/18 19 :52; Start 03/21/18 at 21:00; Stop 03/24/18 at 13:42; Status DC Divalproex Sodium (Depakote Er) 1,000 mg QHS PO Last administered on 03/29/18 19:28; Start 03/24/18 at 21:00 Clonazepam (KlonoPIN) 0.25 mg HS PO Last administered on 03/29/18 19:30; Start 03/25/18 at 21:00 Risperidone (RisperDAL) 0.5 mg HS PO Last administered on 03/29/18 19:27; Start 03/27/18 at 21:00 Melatonin 6 mg QHS PO Last administered on 03/29/18 19:28; Start 03/28/18 at 21:00 Venlafaxine HCl (Effexor Xr) 187.5 mg DAILY PO Last administered on 03/29/18 09:00; Start 03/29/18 at 09:00 Clonazepam (KlonoPIN) 0.25 mg 1X ONCE PO Last administered on 03/28/18at 20:45 ; Start 03/28/18 at 21:00; Stop 03/28/18 at 21:01; Status DC Active Scripts Active Reported Preparation H Cream (Phenyleph/Pramoxin/Glycr/W.pet) 26 Gm Cream..g. 1 Marlen RC PRN Q6HRS PRN Nystatin 15 Gm Cream..g. 1 Marlen TP BID A and D Ointment (Vits A and D/White Pet/Lanolin) 42.5 Gm Oint...g. 1 Marlen TP BID Vitamin D3 (Cholecalciferol (Vitamin D3)) 1,000 Unit Tablet 2,000 Unit PO DAILY Venlafaxine Hcl Er (Venlafaxine Hcl) 225 Mg Tab.er.24 225 Mg PO DAILY Valproic Acid 250 Mg Capsule 250 Mg PO HS Trazodone Hcl 150 Mg Tablet 150 Mg PO HS Simvastatin 40 Mg Tablet 40 Mg PO HS Senna Lax (Sennosides) 8.6 Mg Tablet 17.2 Mg PO HS Risperidone 1 Mg Tablet 1 Mg PO BID Niacin Er (Niacin) 750 Mg Tab.er.24h 750 Mg PO HS Namenda (Memantine Hcl) 10 Mg Tablet 2.5 Mg PO BID Magnesium Oxide 400 Mg Tablet 400 Mg PO DAILY Donepezil Hcl 10 Mg Tablet 10 Mg PO HS Colace (Docusate Sodium) 100 Mg Capsule 200 Mg PO HS Clonazepam 0.5 Mg Tablet 0.5 Mg PO BID Clonazepam 0.5 Mg Tablet 0.5 Mg PO PRN DAILY PRN Grady-Gest (Calcium Carbonate) 200 Mg Tab.chew 500 Mg PO BID Bactrim Ds Tablet (Sulfamethoxazole/Trimethoprim) 1 Each Tablet 1 Tab PO DAILY Aspirin 81 Mg Tab.chew 81 Mg PO DAILY Acetaminophen 325 Mg Tablet 650 Mg PO PRN Q6HRS PRN I have reviewed the current psychotropics carefully including drug interactions. Risk benefit ratio favors no change other than as noted in my dictated progress note. Diagnosis: Problems: (1) Dementia with behavioral disturbance (2) Anxiety disorder (3) Dementia, vascular, with delusions (4) Dementia, vascular, with depression (5) Dementia in Alzheimer's disease with delusions (6) Dementia in Alzheimer's disease with depression (7) Impulse control disorder CELESTE MARIN MD Mar 29, 2018 20:28
[2018-03-30 05:46] VITALS: BP 104/53
[2018-03-30] MEDS: CALCIUM CARBONATE 500 MG TAB.CHEW PO SCH ×2 (07:34→19:16)
[2018-03-30] MEDS: MAGNESIUM OXIDE 400 MG TABLET PO SCH (07:34)
[2018-03-30] MEDS: CHOLECALCIFEROL (VITAMIN D3) 1,000 UNIT TABLET PO SCH (07:35)
[2018-03-30] MEDS: VENLAFAXINE XR 37.5 MG CAP.ER.24H. PO SCH (07:35)
[2018-03-30] MEDS: ASPIRIN 81 MG TAB.CHEW PO SCH (07:35)
[2018-03-30] MEDS: VITS A & D/LANOLIN TOPICAL OINTMENT 56GM TUBE. TP SCH ×2 (07:36→19:18)
[2018-03-30] MEDS: NYSTATIN 100,000 UNIT/GM TOPICAL CREAM 15GM TUBE. TP SCH ×2 (07:36→19:18)
[2018-03-30 16:29] VITALS: BP 125/80
[2018-03-30] MEDS: NIACIN ER 250 MG TABLET.ER PO SCH (17:42)
[2018-03-30] MEDS: risperiDONE 0.5 MG TABLET. PO SCH (19:16)
[2018-03-30] MEDS: DOCUSATE SODIUM 100 MG CAPSULE PO SCH (19:16)
[2018-03-30] MEDS: DIVALPROEX ER 500 MG TAB.ER.24H PO SCH (19:16)
[2018-03-30] MEDS: traZODone 150 MG TABLET. PO SCH (19:16)
[2018-03-30] MEDS: SENNOSIDES 8.6 MG TABLET PO SCH (19:16)
[2018-03-30] MEDS: SIMVASTATIN 40 MG TABLET. PO SCH (19:16)
[2018-03-30] MEDS: DONEPEZIL HCL 10 MG TABLET PO SCH (19:16)
[2018-03-30] MEDS: MELATONIN 3 MG TABLET PO SCH (19:16)
--- NOTE | 2018-03-30 22:02 | PN ---
DATE: 03/28/2018 PSYCHIATRIC PROGRESS NOTE This is a late entry of 03/28/2018, covers elements not covered in my initial note. SUBJECTIVE: I met with the patient in the evening. The patient slept just 2- 3/4 hours previous evening, remains confused, was quite distressed with his hemorrhoids previous evening. Deferred to Dr. Herrera. REVIEW OF SYSTEMS: Ambulation impaired. No CV, , pulmonary, eye, ENT system symptoms on review. Reliability poor. MENTAL STATUS EXAM: Oriented to himself. Insight, judgment, recent and remote memory, attention, concentration, fund of knowledge poor, consistent with his diagnosis. He has a parkinsonian facial expression. LABORATORY DATA: Reviewed. Valproic acid level on the was 53. PLAN: Increase melatonin to 6 mg p.o. at bedtime and reduce Effexor to 187.5 mg a day. Depakote has been adjusted. Follow labs level. Make further adjustments as clinically indicated. MAN Bryant MARIN MD DR: EVARISTO/noé JOB#: [id number] / [id number]
--- NOTE | 2018-03-31 00:38 | PN ---
DATE: 03/29/2018 PSYCHIATRIC PROGRESS NOTE ' This late entry 03/29/2018 covers elements not covered in my initial note. SUBJECTIVE: Met with the patient in the evening, staffed at a treatment team meeting with the entire team in the morning. The patient slept 6-1/2 hours, remains somewhat anxious, sweating at times. Blood sugar was checked and defer to Dr. Herrera. He has not been aggressive despite reduction of Klonopin and Risperdal. REVIEW OF SYSTEMS: No CV, , pulmonary, eye, ENT system symptoms on review. He weighs out to nursing staff, little more expressive. MENTAL STATUS EXAM: Oriented to himself. Insight, judgment, recent and remote memory, attention, concentration, fund of knowledge is poor, consistent with his diagnoses mentioned in my initial note. PLAN: No change from initial note, may stop the Klonopin in a day or two. CELESTE MAIRN MD DR: EVARISTO/noé JOB#: [id number] / [id number]
[2018-03-31 06:18] VITALS: BP 129/74
[2018-03-31] MEDS: ASPIRIN 81 MG TAB.CHEW PO SCH (08:41)
[2018-03-31] MEDS: CHOLECALCIFEROL (VITAMIN D3) 1,000 UNIT TABLET PO SCH (08:41)
[2018-03-31] MEDS: MAGNESIUM OXIDE 400 MG TABLET PO SCH (08:41)
[2018-03-31] MEDS: VENLAFAXINE XR 37.5 MG CAP.ER.24H. PO SCH (08:41)
[2018-03-31] MEDS: CALCIUM CARBONATE 500 MG TAB.CHEW PO SCH ×2 (08:41→19:41)
[2018-03-31] MEDS: VITS A & D/LANOLIN TOPICAL OINTMENT 56GM TUBE. TP SCH ×2 (09:00→19:42)
[2018-03-31] MEDS: NYSTATIN 100,000 UNIT/GM TOPICAL CREAM 15GM TUBE. TP SCH ×2 (09:00→19:42)
[2018-03-31 15:59] VITALS: BP 115/70
[2018-03-31] MEDS: NIACIN ER 250 MG TABLET.ER PO SCH (17:08)
[2018-03-31] MEDS: risperiDONE 0.5 MG TABLET. PO SCH (19:41)
[2018-03-31] MEDS: SENNOSIDES 8.6 MG TABLET PO SCH (19:41)
[2018-03-31] MEDS: DIVALPROEX ER 500 MG TAB.ER.24H PO SCH (19:41)
[2018-03-31] MEDS: traZODone 150 MG TABLET. PO SCH (19:41)
[2018-03-31] MEDS: DONEPEZIL HCL 10 MG TABLET PO SCH (19:41)
[2018-03-31] MEDS: MELATONIN 3 MG TABLET PO SCH (19:41)
[2018-03-31] MEDS: SIMVASTATIN 40 MG TABLET. PO SCH (19:41)
[2018-03-31] MEDS: DOCUSATE SODIUM 100 MG CAPSULE PO SCH (19:41)
--- NOTE | 2018-03-31 22:18 | PDOC ---
Exam Note: Bonilla Note: Please also refer to the separate dictated note~for this date of service dictated separately.~Patient seen individually. Discussed the patient with Nursing staff reviewed the chart.~Reviewed interim history and current functioning. Reviewed vital signs,~Labs/ Radiology~and current medications noted below. Continue current treatment with the changes noted in the dictated addendum note Assessment: Vital Signs: Vital Signs Date Time Temp Pulse Resp B/P (MAP) Pulse Ox O2 Delivery O2 Flow Rate FiO2 03/31/18 15:59 97.5 72 18 115/70 (85) 98 03/31/18 06:18 Room Air I&O Intake and Output 03/31/18 07:00 Intake Total 1080 ml Balance 1080 ml Intake Oral 1080 ml Labs: Laboratory Tests Test 03/31/18 07:07 Glucose (Fingerstick) 116 mg/dL (70-99) H Current Medications: Meds: Current Medications Acetaminophen (Tylenol) 650 mg PRN Q6HRS PRN PO PAIN / TEMP; Start 03/17/18 at 01:15; Status UNV Multi-Ingredient Ointment (Analgesic [place]) 1 marlen PRN QID PRN TP MUSCLE PAIN; Start 03/17/18 at 01:15 Al Hydroxide/Mg Hydroxide (Mylanta Plus Xs) 15 ml PRN AFTMEALHC PRN PO DYSPEPSIA; Start 03/17/18 at 01:15 Magnesium Hydroxide (Milk Of Magnesia) 2,400 mg PRN QHS PRN PO CONSTIPATION; Start 03/17/18 at 01:15 Clonazepam (KlonoPIN) 0.5 mg BID PO Last administered on 03/18/18at 19:55; Start 03/17/18 at 09:00; Stop 03/18/18 at 20:38; Status DC Clonazepam (KlonoPIN) 0.5 mg PRN DAILY PRN PO ANXIETY / AGITATION; Start at 01:15 Valproic Acid (Depakene) 250 mg HS PO ; Start 03/17/18 at 21:00; Stop 03/17/18 at 21:00; Status DC Donepezil HCl (Aricept) 10 mg QHS PO Last administered on 03/31/18at 19:41; Start 03/17/18 at 21:00 Memantine (Namenda) 2.5 mg BID PO Last administered on 03/17/18 07:54; Start 03/17/18 at 09:00; Stop 03/17/18 at 21:01; Status DC Risperidone (RisperDAL) 1 mg BID PO Last administered on 03/21/18at 07:38; Start 03/17/18 at 09:00; Stop 03/21/18 at 16:11; Status DC Trazodone HCl (Desyrel) 150 mg QHS PO Last administered on 03/31/18 19:41; Start 03/17/18 at 21:00 Venlafaxine HCl (Effexor Xr) 37.5 mg DAILY PO ; Start 03/17/18 at 09:00; Stop at 09:00; Status DC Acetaminophen (Tylenol) 650 mg PRN Q6HRS PRN PO PAIN / TEMP; Start 03/17/18 at 01:30 Calcium Carbonate/ Glycine (Tums) 500 mg BID PO Last administered on 03/31/18 19:41; Start 03/17/18 at 09:00 Vitamin D (Vitamin D3) 2,000 unit DAILY PO Last administered on 03/31/18 08:41 ; Start 03/17/18 at 09:00 Simvastatin (Zocor) 40 mg HS PO Last administered on 03/31/18 19:41; Start 06/24 at 21:00 Trimethoprim/ Sulfamethoxazole (Bactrim Ds) 1 tab DAILY PO Last administered on 03/23/18 08:52; Start 03/17/18 at 09:00; Stop 03/24/18 at 08:43; Status DC Vitamin A/Vitamin D (Vitamin A & D Ointment) 1 marlen BID TP Last administered on 03/31/18 19:42; Start 03/17/18 at 09:00 Aspirin (Children'S Aspirin) 81 mg DAILYWBKFT PO Last administered on 08:41; Start 03/17/18 at 08:00 Docusate Sodium (Colace) 200 mg HS PO Last administered on 03/31/18 19:41; Start 03/17/18 at 21:00 Magnesium Oxide (Magnesium Oxide) 400 mg DAILY PO Last administered on 08:41; Start 03/17/18 at 09:00 Niacin (Slo-Niacin) 750 mg QEVNG PO Last administered on 03/31/18 17:08; Start 03/17/18 at 18:00 Nystatin (Mycostatin) 1 marlen BID TP Last administered on 03/31/18 19:42; Start 03/17/18 at 09:00 Phenyleph/Shark Oil/Min Oil/Petrol (Preparation H) 1 marlen PRN Q6HRS PRN RC RECTAL PAIN Last administered on 03/28/18at 01:39; Start 03/17/18 at 01:30 Sennosides (Senna) 17.2 mg HS PO Last administered on 03/31/18 19:41; Start at 21:00 Venlafaxine HCl (Effexor Xr) 225 mg DAILY PO Last administered on 03/28/18 07: 48; Start 03/17/18 at 09:00; Stop 03/28/18 at 16:15; Status DC Divalproex Sodium (Depakote Er) 500 mg QHS PO Last administered on 03/20/18at 20 :14; Start 03/17/18 at 21:00; Stop 03/21/18 at 16:11; Status DC Clonazepam (KlonoPIN) 0.25 mg BID PO Last administered on 03/25/18at 08:49; Start 03/18/18 at 21:00; Stop 03/25/18 at 18:25; Status DC Lactobacillus Rhamnosus (Culturelle) 1 cap BID PO Last administered on at 08:33; Start 03/19/18 at 21:00; Stop 03/27/18 at 20:59; Status DC Divalproex Sodium (Depakote Er) 500 mg QHS PO Last administered on 03/23/18at 19 :52; Start 03/21/18 at 21:00; Stop 03/24/18 at 13:42; Status DC Risperidone (RisperDAL) 1 mg HS PO Last administered on 03/26/18at 19:34; Start 03/21/18 at 21:00; Stop 03/27/18 at 16:22; Status DC Melatonin 3 mg QHS PO Last administered on 03/27/18at 20:49; Start 03/21/18 at 21:00; Stop 03/28/18 at 16:15; Status DC Risperidone (RisperDAL) 0.5 mg DAILY PO Last administered on 03/24/18 09:01; Start 03/22/18 at 09:00; Stop 03/24/18 at 13:42; Status DC Divalproex Sodium (Depakote Er) 250 mg QHS PO Last administered on 03/23/18at 19 :52; Start 03/21/18 at 21:00; Stop 03/24/18 at 13:42; Status DC Divalproex Sodium (Depakote Er) 1,000 mg QHS PO Last administered on 03/31/18 19:41; Start 03/24/18 at 21:00 Clonazepam (KlonoPIN) 0.25 mg HS PO Last administered on 03/29/18 19:30; Start 03/25/18 at 21:00; Stop 03/30/18 at 16:25; Status DC Risperidone (RisperDAL) 0.5 mg HS PO Last administered on 03/31/18 19:41; Start 03/27/18 at 21:00 Melatonin 6 mg QHS PO Last administered on 03/31/18 19:41; Start 03/28/18 at 21:00 Venlafaxine HCl (Effexor Xr) 187.5 mg DAILY PO Last administered on 03/31/18 08:41; Start 03/29/18 at 09:00 Clonazepam (KlonoPIN) 0.25 mg 1X ONCE PO Last administered on 03/28/18at 20:45 ; Start 03/28/18 at 21:00; Stop 03/28/18 at 21:01; Status DC Active Scripts Active Reported Preparation H Cream (Phenyleph/Pramoxin/Glycr/W.pet) 26 Gm Cream..g. 1 Marlen RC PRN Q6HRS PRN Nystatin 15 Gm Cream..g. 1 Marlen TP BID A and D Ointment (Vits A and D/White Pet/Lanolin) 42.5 Gm Oint...g. 1 Marlen TP BID Vitamin D3 (Cholecalciferol (Vitamin D3)) 1,000 Unit Tablet 2,000 Unit PO DAILY Venlafaxine Hcl Er (Venlafaxine Hcl) 225 Mg Tab.er.24 225 Mg PO DAILY Valproic Acid 250 Mg Capsule 250 Mg PO HS Trazodone Hcl 150 Mg Tablet 150 Mg PO HS Simvastatin 40 Mg Tablet 40 Mg PO HS Senna Lax (Sennosides) 8.6 Mg Tablet 17.2 Mg PO HS Risperidone 1 Mg Tablet 1 Mg PO BID Niacin Er (Niacin) 750 Mg Tab.er.24h 750 Mg PO HS Namenda (Memantine Hcl) 10 Mg Tablet 2.5 Mg PO BID Magnesium Oxide 400 Mg Tablet 400 Mg PO DAILY Donepezil Hcl 10 Mg Tablet 10 Mg PO HS Colace (Docusate Sodium) 100 Mg Capsule 200 Mg PO HS Clonazepam 0.5 Mg Tablet 0.5 Mg PO BID Clonazepam 0.5 Mg Tablet 0.5 Mg PO PRN DAILY PRN Grady-Gest (Calcium Carbonate) 200 Mg Tab.chew 500 Mg PO BID Bactrim Ds Tablet (Sulfamethoxazole/Trimethoprim) 1 Each Tablet 1 Tab PO DAILY Aspirin 81 Mg Tab.chew 81 Mg PO DAILY Acetaminophen 325 Mg Tablet 650 Mg PO PRN Q6HRS PRN I have reviewed the current psychotropics carefully including drug interactions. Risk benefit ratio favors no change other than as noted in my dictated progress note. Diagnosis: Problems: (1) Dementia with behavioral disturbance (2) Anxiety disorder (3) Dementia, vascular, with delusions (4) Dementia, vascular, with depression (5) Dementia in Alzheimer's disease with delusions (6) Dementia in Alzheimer's disease with depression (7) Impulse control disorder CELESTE MARIN MD Mar 31, 2018 22:18
[2018-04-01 05:53] VITALS: BP 152/75
[2018-04-01] MEDS: VENLAFAXINE XR 37.5 MG CAP.ER.24H. PO SCH (07:57)
[2018-04-01] MEDS: ASPIRIN 81 MG TAB.CHEW PO SCH (07:57)
[2018-04-01] MEDS: CALCIUM CARBONATE 500 MG TAB.CHEW PO SCH ×2 (07:58→19:12)
[2018-04-01] MEDS: CHOLECALCIFEROL (VITAMIN D3) 1,000 UNIT TABLET PO SCH (07:58)
[2018-04-01] MEDS: MAGNESIUM OXIDE 400 MG TABLET PO SCH (07:58)
[2018-04-01] MEDS: VITS A & D/LANOLIN TOPICAL OINTMENT 56GM TUBE. TP SCH ×2 (07:59→19:13)
[2018-04-01] MEDS: NYSTATIN 100,000 UNIT/GM TOPICAL CREAM 15GM TUBE. TP SCH ×2 (07:59→19:13)
[2018-04-01 16:20] VITALS: BP 145/83
[2018-04-01] MEDS: NIACIN ER 250 MG TABLET.ER PO SCH (17:23)
[2018-04-01] MEDS: DIVALPROEX ER 500 MG TAB.ER.24H PO SCH (19:10)
[2018-04-01] MEDS: DOCUSATE SODIUM 100 MG CAPSULE PO SCH (19:11)
[2018-04-01] MEDS: DONEPEZIL HCL 10 MG TABLET PO SCH (19:11)
[2018-04-01] MEDS: risperiDONE 0.5 MG TABLET. PO SCH (19:11)
[2018-04-01] MEDS: MELATONIN 3 MG TABLET PO SCH (19:11)
[2018-04-01] MEDS: SIMVASTATIN 40 MG TABLET. PO SCH (19:11)
[2018-04-01] MEDS: traZODone 150 MG TABLET. PO SCH (19:12)
[2018-04-01] MEDS: SENNOSIDES 8.6 MG TABLET PO SCH (19:12)
--- NOTE | 2018-04-01 19:52 | PDOC ---
Exam Note: Bonilla Note: Please also refer to the separate dictated note~for this date of service dictated separately.~Patient seen individually. Discussed the patient with Nursing staff reviewed the chart.~Reviewed interim history and current functioning. Reviewed vital signs,~Labs/ Radiology~and current medications noted below. Continue current treatment with the changes noted in the dictated addendum note Assessment: Vital Signs: Vital Signs Date Time Temp Pulse Resp B/P (MAP) Pulse Ox O2 Delivery O2 Flow Rate FiO2 04/01/18 16:20 97.9 71 20 145/83 (103) 96 04/01/18 05:53 Room Air I&O Intake and Output 04/01/18 07:00 Intake Total 960 ml Balance 960 ml Intake Oral 960 ml Labs: Laboratory Tests Test 04/01/18 07:30 Glucose (Fingerstick) 132 mg/dL (70-99) H Current Medications: Meds: Current Medications Acetaminophen (Tylenol) 650 mg PRN Q6HRS PRN PO PAIN / TEMP; Start 03/17/18 at 01:15; Status UNV Multi-Ingredient Ointment (Analgesic [place]) 1 marlen PRN QID PRN TP MUSCLE PAIN; Start 03/17/18 at 01:15 Al Hydroxide/Mg Hydroxide (Mylanta Plus Xs) 15 ml PRN AFTMEALHC PRN PO DYSPEPSIA; Start 03/17/18 at 01:15 Magnesium Hydroxide (Milk Of Magnesia) 2,400 mg PRN QHS PRN PO CONSTIPATION; Start 03/17/18 at 01:15 Clonazepam (KlonoPIN) 0.5 mg BID PO Last administered on 03/18/18at 19:55; Start 03/17/18 at 09:00; Stop 03/18/18 at 20:38; Status DC Clonazepam (KlonoPIN) 0.5 mg PRN DAILY PRN PO ANXIETY / AGITATION; Start at 01:15 Valproic Acid (Depakene) 250 mg HS PO ; Start 03/17/18 at 21:00; Stop 03/17/18 at 21:00; Status DC Donepezil HCl (Aricept) 10 mg QHS PO Last administered on 04/01/18at 19:11; Start 03/17/18 at 21:00 Memantine (Namenda) 2.5 mg BID PO Last administered on 03/17/18 07:54; Start 03/17/18 at 09:00; Stop 03/17/18 at 21:01; Status DC Risperidone (RisperDAL) 1 mg BID PO Last administered on 03/21/18at 07:38; Start 03/17/18 at 09:00; Stop 03/21/18 at 16:11; Status DC Trazodone HCl (Desyrel) 150 mg QHS PO Last administered on 04/01/18at 19:12; Start 03/17/18 at 21:00 Venlafaxine HCl (Effexor Xr) 37.5 mg DAILY PO ; Start 03/17/18 at 09:00; Stop at 09:00; Status DC Acetaminophen (Tylenol) 650 mg PRN Q6HRS PRN PO PAIN / TEMP; Start 03/17/18 at 01:30 Calcium Carbonate/ Glycine (Tums) 500 mg BID PO Last administered on 04/01/18 19:12; Start 03/17/18 at 09:00 Vitamin D (Vitamin D3) 2,000 unit DAILY PO Last administered on 04/01/18 07:58 ; Start 03/17/18 at 09:00 Simvastatin (Zocor) 40 mg HS PO Last administered on 04/01/18 19:11; Start 06/24 at 21:00 Trimethoprim/ Sulfamethoxazole (Bactrim Ds) 1 tab DAILY PO Last administered on 03/23/18at 08:52; Start 03/17/18 at 09:00; Stop 03/24/18 at 08:43; Status DC Vitamin A/Vitamin D (Vitamin A & D Ointment) 1 marlen BID TP Last administered on 04/01/18 19:13; Start 03/17/18 at 09:00 Aspirin (Children'S Aspirin) 81 mg DAILYWBKFT PO Last administered on 07:57; Start 03/17/18 at 08:00 Docusate Sodium (Colace) 200 mg HS PO Last administered on 04/01/18 19:11; Start 03/17/18 at 21:00 Magnesium Oxide (Magnesium Oxide) 400 mg DAILY PO Last administered on at 07:58; Start 03/17/18 at 09:00 Niacin (Slo-Niacin) 750 mg QEVNG PO Last administered on 04/01/18 17:23; Start 03/17/18 at 18:00 Nystatin (Mycostatin) 1 marlen BID TP Last administered on 04/01/18 19:13; Start 03/17/18 at 09:00 Phenyleph/Shark Oil/Min Oil/Petrol (Preparation H) 1 marlen PRN Q6HRS PRN RC RECTAL PAIN Last administered on 03/28/18at 01:39; Start 03/17/18 at 01:30 Sennosides (Senna) 17.2 mg HS PO Last administered on 04/01/18 19:12; Start at 21:00 Venlafaxine HCl (Effexor Xr) 225 mg DAILY PO Last administered on 03/28/18 07: 48; Start 03/17/18 at 09:00; Stop 03/28/18 at 16:15; Status DC Divalproex Sodium (Depakote Er) 500 mg QHS PO Last administered on 03/20/18at 20 :14; Start 03/17/18 at 21:00; Stop 03/21/18 at 16:11; Status DC Clonazepam (KlonoPIN) 0.25 mg BID PO Last administered on 03/25/18 08:49; Start 03/18/18 at 21:00; Stop 03/25/18 at 18:25; Status DC Lactobacillus Rhamnosus (Culturelle) 1 cap BID PO Last administered on at 08:33; Start 03/19/18 at 21:00; Stop 03/27/18 at 20:59; Status DC Divalproex Sodium (Depakote Er) 500 mg QHS PO Last administered on 03/23/18 19 :52; Start 03/21/18 at 21:00; Stop 03/24/18 at 13:42; Status DC Risperidone (RisperDAL) 1 mg HS PO Last administered on 03/26/18at 19:34; Start 03/21/18 at 21:00; Stop 03/27/18 at 16:22; Status DC Melatonin 3 mg QHS PO Last administered on 03/27/18at 20:49; Start 03/21/18 at 21:00; Stop 03/28/18 at 16:15; Status DC Risperidone (RisperDAL) 0.5 mg DAILY PO Last administered on 03/24/18at 09:01; Start 03/22/18 at 09:00; Stop 03/24/18 at 13:42; Status DC Divalproex Sodium (Depakote Er) 250 mg QHS PO Last administered on 03/23/18at 19 :52; Start 03/21/18 at 21:00; Stop 03/24/18 at 13:42; Status DC Divalproex Sodium (Depakote Er) 1,000 mg QHS PO Last administered on 04/01/18at 19:10; Start 03/24/18 at 21:00 Clonazepam (KlonoPIN) 0.25 mg HS PO Last administered on 03/29/18at 19:30; Start 03/25/18 at 21:00; Stop 03/30/18 at 16:25; Status DC Risperidone (RisperDAL) 0.5 mg HS PO Last administered on 04/01/18 19:11; Start 03/27/18 at 21:00 Melatonin 6 mg QHS PO Last administered on 04/01/18at 19:11; Start 03/28/18 at 21:00 Venlafaxine HCl (Effexor Xr) 187.5 mg DAILY PO Last administered on 04/01/18at 07:57; Start 03/29/18 at 09:00 Clonazepam (KlonoPIN) 0.25 mg 1X ONCE PO Last administered on 03/28/18at 20:45 ; Start 03/28/18 at 21:00; Stop 03/28/18 at 21:01; Status DC Active Scripts Active Reported Preparation H Cream (Phenyleph/Pramoxin/Glycr/W.pet) 26 Gm Cream..g. 1 Marlen RC PRN Q6HRS PRN Nystatin 15 Gm Cream..g. 1 Marlen TP BID A and D Ointment (Vits A and D/White Pet/Lanolin) 42.5 Gm Oint...g. 1 Mal[place] TP BID Vitamin D3 (Cholecalciferol (Vitamin D3)) 1,000 Unit Tablet 2,000 Unit PO DAILY Venlafaxine Hcl Er (Venlafaxine Hcl) 225 Mg Tab.er.24 225 Mg PO DAILY Valproic Acid 250 Mg Capsule 250 Mg PO HS Trazodone Hcl 150 Mg Tablet 150 Mg PO HS Simvastatin 40 Mg Tablet 40 Mg PO HS Senna Lax (Sennosides) 8.6 Mg Tablet 17.2 Mg PO HS Risperidone 1 Mg Tablet 1 Mg PO BID Niacin Er (Niacin) 750 Mg Tab.er.24h 750 Mg PO HS Namenda (Memantine Hcl) 10 Mg Tablet 2.5 Mg PO BID Magnesium Oxide 400 Mg Tablet 400 Mg PO DAILY Donepezil Hcl 10 Mg Tablet 10 Mg PO HS Colace (Docusate Sodium) 100 Mg Capsule 200 Mg PO HS Clonazepam 0.5 Mg Tablet 0.5 Mg PO BID Clonazepam 0.5 Mg Tablet 0.5 Mg PO PRN DAILY PRN Grady-Gest (Calcium Carbonate) 200 Mg Tab.chew 500 Mg PO BID Bactrim Ds Tablet (Sulfamethoxazole/Trimethoprim) 1 Each Tablet 1 Tab PO DAILY Aspirin 81 Mg Tab.chew 81 Mg PO DAILY Acetaminophen 325 Mg Tablet 650 Mg PO PRN Q6HRS PRN I have reviewed the current psychotropics carefully including drug interactions. Risk benefit ratio favors no change other than as noted in my dictated progress note. Diagnosis: Problems: (1) Dementia with behavioral disturbance (2) Anxiety disorder (3) Dementia, vascular, with delusions (4) Dementia, vascular, with depression (5) Dementia in Alzheimer's disease with delusions (6) Dementia in Alzheimer's disease with depression (7) Impulse control disorder CELESTE MARIN MD Apr 01, 2018 19:52
--- NOTE | 2018-04-01 19:52 | PDOC ---
Exam Note: Bonilla Note: Late entry for date of service March.Please also refer to the separate dictated note~for this date of service dictated separately.~Patient seen individually. Discussed the patient with Nursing staff reviewed the chart.~ Reviewed interim history and current functioning. Reviewed vital signs,~Labs/ Radiology~and current medications noted below. Continue current treatment with the changes noted in the dictated addendum note Assessment: Vital Signs: VS - Last 72 Hours, by Label Date Time Temp Pulse Resp B/P (MAP) Pulse Ox O2 Delivery O2 Flow Rate FiO2 04/01/18 16:20 97.9 71 20 145/83 (103) 96 04/01/18 05:53 97.6 78 18 152/75 (100) 95 Room Air 03/31/18 15:59 97.5 72 18 115/70 (85) 98 03/31/18 06:18 97.9 70 22 129/74 (92) 94 Room Air 03/30/18 16:29 98.9 77 18 125/80 (95) 95 Room Air 03/30/18 05:46 97.0 82 22 104/53 (70) 97 Vital Signs Date Time Temp Pulse Resp B/P (MAP) Pulse Ox O2 Delivery O2 Flow Rate FiO2 04/01/18 16:20 97.9 71 20 145/83 (103) 96 04/01/18 05:53 Room Air I&O Intake and Output 04/01/18 07:00 Intake Total 960 ml Balance 960 ml Intake Oral 960 ml Labs: Laboratory Tests Test 04/01/18 07:30 Glucose (Fingerstick) 132 mg/dL (70-99) H Current Medications: Meds: Current Medications Acetaminophen (Tylenol) 650 mg PRN Q6HRS PRN PO PAIN / TEMP; Start 03/17/18 at 01:15; Status UNV Multi-Ingredient Ointment (Analgesic [place]) 1 marlen PRN QID PRN TP MUSCLE PAIN; Start 03/17/18 at 01:15 Al Hydroxide/Mg Hydroxide (Mylanta Plus Xs) 15 ml PRN AFTMEALHC PRN PO DYSPEPSIA; Start 03/17/18 at 01:15 Magnesium Hydroxide (Milk Of Magnesia) 2,400 mg PRN QHS PRN PO CONSTIPATION; Start 03/17/18 at 01:15 Clonazepam (KlonoPIN) 0.5 mg BID PO Last administered on 03/18/18at 19:55; Start 03/17/18 at 09:00; Stop 03/18/18 at 20:38; Status DC Clonazepam (KlonoPIN) 0.5 mg PRN DAILY PRN PO ANXIETY / AGITATION; Start at 01:15 Valproic Acid (Depakene) 250 mg HS PO ; Start 03/17/18 at 21:00; Stop 03/17/18 at 21:00; Status DC Donepezil HCl (Aricept) 10 mg QHS PO Last administered on 04/01/18 19:11; Start 03/17/18 at 21:00 Memantine (Namenda) 2.5 mg BID PO Last administered on 03/17/18at 07:54; Start 03/17/18 at 09:00; Stop 03/17/18 at 21:01; Status DC Risperidone (RisperDAL) 1 mg BID PO Last administered on 03/21/18at 07:38; Start 03/17/18 at 09:00; Stop 03/21/18 at 16:11; Status DC Trazodone HCl (Desyrel) 150 mg QHS PO Last administered on 04/01/18 19:12; Start 03/17/18 at 21:00 Venlafaxine HCl (Effexor Xr) 37.5 mg DAILY PO ; Start 03/17/18 at 09:00; Stop at 09:00; Status DC Acetaminophen (Tylenol) 650 mg PRN Q6HRS PRN PO PAIN / TEMP; Start 03/17/18 at 01:30 Calcium Carbonate/ Glycine (Tums) 500 mg BID PO Last administered on 04/01/18at 19:12; Start 03/17/18 at 09:00 Vitamin D (Vitamin D3) 2,000 unit DAILY PO Last administered on 04/01/18at 07:58 ; Start 03/17/18 at 09:00 Simvastatin (Zocor) 40 mg HS PO Last administered on 04/01/18at 19:11; Start 06/24 at 21:00 Trimethoprim/ Sulfamethoxazole (Bactrim Ds) 1 tab DAILY PO Last administered on 03/23/18at 08:52; Start 03/17/18 at 09:00; Stop 03/24/18 at 08:43; Status DC Vitamin A/Vitamin D (Vitamin A & D Ointment) 1 marlen BID TP Last administered on 04/01/18 19:13; Start 03/17/18 at 09:00 Aspirin (Children'S Aspirin) 81 mg DAILYWBKFT PO Last administered on 07:57; Start 03/17/18 at 08:00 Docusate Sodium (Colace) 200 mg HS PO Last administered on 04/01/18 19:11; Start 03/17/18 at 21:00 Magnesium Oxide (Magnesium Oxide) 400 mg DAILY PO Last administered on 07:58; Start 03/17/18 at 09:00 Niacin (Slo-Niacin) 750 mg QEVNG PO Last administered on 04/01/18 17:23; Start 03/17/18 at 18:00 Nystatin (Mycostatin) 1 marlen BID TP Last administered on 04/01/18 19:13; Start 03/17/18 at 09:00 Phenyleph/Shark Oil/Min Oil/Petrol (Preparation H) 1 marlen PRN Q6HRS PRN RC RECTAL PAIN Last administered on 03/28/18at 01:39; Start 03/17/18 at 01:30 Sennosides (Senna) 17.2 mg HS PO Last administered on 04/01/18 19:12; Start at 21:00 Venlafaxine HCl (Effexor Xr) 225 mg DAILY PO Last administered on 03/28/18at 07: 48; Start 03/17/18 at 09:00; Stop 03/28/18 at 16:15; Status DC Divalproex Sodium (Depakote Er) 500 mg QHS PO Last administered on 03/20/18at 20 :14; Start 03/17/18 at 21:00; Stop 03/21/18 at 16:11; Status DC Clonazepam (KlonoPIN) 0.25 mg BID PO Last administered on 03/25/18at 08:49; Start 03/18/18 at 21:00; Stop 03/25/18 at 18:25; Status DC Lactobacillus Rhamnosus (Culturelle) 1 cap BID PO Last administered on at 08:33; Start 03/19/18 at 21:00; Stop 03/27/18 at 20:59; Status DC Divalproex Sodium (Depakote Er) 500 mg QHS PO Last administered on 03/23/18at 19 :52; Start 03/21/18 at 21:00; Stop 03/24/18 at 13:42; Status DC Risperidone (RisperDAL) 1 mg HS PO Last administered on 03/26/18at 19:34; Start 03/21/18 at 21:00; Stop 03/27/18 at 16:22; Status DC Melatonin 3 mg QHS PO Last administered on 03/27/18at 20:49; Start 03/21/18 at 21:00; Stop 03/28/18 at 16:15; Status DC Risperidone (RisperDAL) 0.5 mg DAILY PO Last administered on 03/24/18at 09:01; Start 03/22/18 at 09:00; Stop 03/24/18 at 13:42; Status DC Divalproex Sodium (Depakote Er) 250 mg QHS PO Last administered on 03/23/18at 19 :52; Start 03/21/18 at 21:00; Stop 03/24/18 at 13:42; Status DC Divalproex Sodium (Depakote Er) 1,000 mg QHS PO Last administered on 04/01/18at 19:10; Start 03/24/18 at 21:00 Clonazepam (KlonoPIN) 0.25 mg HS PO Last administered on 03/29/18at 19:30; Start 03/25/18 at 21:00; Stop 03/30/18 at 16:25; Status DC Risperidone (RisperDAL) 0.5 mg HS PO Last administered on 04/01/18 19:11; Start 03/27/18 at 21:00 Melatonin 6 mg QHS PO Last administered on 04/01/18 19:11; Start 03/28/18 at 21:00 Venlafaxine HCl (Effexor Xr) 187.5 mg DAILY PO Last administered on 04/01/18at 07:57; Start 03/29/18 at 09:00 Clonazepam (KlonoPIN) 0.25 mg 1X ONCE PO Last administered on 03/28/18at 20:45 ; Start 03/28/18 at 21:00; Stop 03/28/18 at 21:01; Status DC Active Scripts Active Reported Preparation H Cream (Phenyleph/Pramoxin/Glycr/W.pet) 26 Gm Cream..g. 1 Marlen RC PRN Q6HRS PRN Nystatin 15 Gm Cream..g. 1 Marlen TP BID A and D Ointment (Vits A and D/White Pet/Lanolin) 42.5 Gm Oint...g. 1 Marlen TP BID Vitamin D3 (Cholecalciferol (Vitamin D3)) 1,000 Unit Tablet 2,000 Unit PO DAILY Venlafaxine Hcl Er (Venlafaxine Hcl) 225 Mg Tab.er.24 225 Mg PO DAILY Valproic Acid 250 Mg Capsule 250 Mg PO HS Trazodone Hcl 150 Mg Tablet 150 Mg PO HS Simvastatin 40 Mg Tablet 40 Mg PO HS Senna Lax (Sennosides) 8.6 Mg Tablet 17.2 Mg PO HS Risperidone 1 Mg Tablet 1 Mg PO BID Niacin Er (Niacin) 750 Mg Tab.er.24h 750 Mg PO HS Namenda (Memantine Hcl) 10 Mg Tablet 2.5 Mg PO BID Magnesium Oxide 400 Mg Tablet 400 Mg PO DAILY Donepezil Hcl 10 Mg Tablet 10 Mg PO HS Colace (Docusate Sodium) 100 Mg Capsule 200 Mg PO HS Clonazepam 0.5 Mg Tablet 0.5 Mg PO BID Clonazepam 0.5 Mg Tablet 0.5 Mg PO PRN DAILY PRN Grady-Gest (Calcium Carbonate) 200 Mg Tab.chew 500 Mg PO BID Bactrim Ds Tablet (Sulfamethoxazole/Trimethoprim) 1 Each Tablet 1 Tab PO DAILY Aspirin 81 Mg Tab.chew 81 Mg PO DAILY Acetaminophen 325 Mg Tablet 650 Mg PO PRN Q6HRS PRN I have reviewed the current psychotropics carefully including drug interactions. Risk benefit ratio favors no change other than as noted in my dictated progress note. Diagnosis: Problems: (1) Dementia with behavioral disturbance (2) Anxiety disorder (3) Dementia, vascular, with delusions (4) Dementia, vascular, with depression (5) Dementia in Alzheimer's disease with delusions (6) Dementia in Alzheimer's disease with depression (7) Impulse control disorder CELESTE MARIN MD Apr 01, 2018 19:52
--- NOTE | 2018-04-02 01:32 | PN ---
DATE: 03/30/2018 PSYCHIATRIC PROGRESS NOTE This is a late entry 03/30/2018, covers elements not covered in my initial note. SUBJECTIVE: I met with the patient in the evening. The patient slept 5-1/2 hours previous night. Overall, he remains confused, but not aggressive, no overt psychotic symptoms since we have reduced the Risperdal. REVIEW OF SYSTEMS: No CV, , pulmonary, eye, ENT system symptoms on review. Reliability is poor. MENTAL STATUS EXAM: Oriented to himself. Insight, judgment, recent and remote memory, attention, concentration, fund of knowledge poor, consistent with his diagnosis mentioned in my initial note. LABORATORY DATA: Valproic acid level is 53, therapeutic. PLAN: Continue psychotropics from initial note. MAN Bryant MARIN MD DR: EVARISTO/noé JOB#: [id number] / [id number]
[2018-04-02 05:28] VITALS: BP 120/57
[2018-04-02] MEDS: ASPIRIN 81 MG TAB.CHEW PO SCH (07:30)
[2018-04-02] MEDS: CHOLECALCIFEROL (VITAMIN D3) 1,000 UNIT TABLET PO SCH (07:31)
[2018-04-02] MEDS: VENLAFAXINE XR 37.5 MG CAP.ER.24H. PO SCH (07:31)
[2018-04-02] MEDS: CALCIUM CARBONATE 500 MG TAB.CHEW PO SCH ×2 (07:31→19:43)
[2018-04-02] MEDS: MAGNESIUM OXIDE 400 MG TABLET PO SCH (07:31)
[2018-04-02] MEDS: NYSTATIN 100,000 UNIT/GM TOPICAL CREAM 15GM TUBE. TP SCH ×2 (07:43→20:43)
[2018-04-02] MEDS: VITS A & D/LANOLIN TOPICAL OINTMENT 56GM TUBE. TP SCH ×2 (07:43→20:43)
[2018-04-02 07:57] LABS: BASO # 0.1 x10^3/uL (0.0-0.2); BASO % 1 % (0-3); EOS # 0.3 x10^3/uL (0.0-0.7); EOS % 4 % (0-3); HEMATOCRIT 44.4 % (39.0-53.0); HEMOGLOBIN 14.8 g/dL (13.0-17.5); LYMPH % 33 % (24-48); MEAN CORPUSCULAR HEMOGLOBIN 30 pg (25-35); MEAN CORPUSCULAR HGB CONC 33 g/dL (31-37); MEAN CORPUSCULAR VOLUME 91 fL (79-100); MONO # 0.9 x10^3/uL (0.0-1.1); MONO % 10 % (0-9); NEUT # 4.9 x10^3uL (1.8-7.7); NEUT % 54 % (31-73); PLATELET COUNT 276 x10^3/uL (140-400); RED BLOOD COUNT 4.91 x10^6/uL (4.30-5.70); WHITE BLOOD COUNT 9.2 x10^3/uL (4.0-11.0)
[2018-04-02 08:20] LABS: ALBUMIN 3.5 g/dL (3.4-5.0); ALBUMIN/GLOBULIN RATIO 0.9 (1.0-1.7); CALCIUM 9.1 mg/dL (8.5-10.1); GFR 73.7; POTASSIUM 4.3 mmol/L (3.5-5.1); TOTAL BILIRUBIN 0.5 mg/dL (0.2-1.0); TOTAL PROTEIN 7.5 g/dL (6.4-8.2)
[2018-04-02 15:37] VITALS: BP 114/52
[2018-04-02] MEDS: NIACIN ER 250 MG TABLET.ER PO SCH (17:38)
[2018-04-02] MEDS: SENNOSIDES 8.6 MG TABLET PO SCH (19:43)
[2018-04-02] MEDS: risperiDONE 0.5 MG TABLET. PO SCH (19:43)
[2018-04-02] MEDS: MELATONIN 3 MG TABLET PO SCH (19:43)
[2018-04-02] MEDS: DIVALPROEX ER 500 MG TAB.ER.24H PO SCH (19:44)
[2018-04-02] MEDS: DONEPEZIL HCL 10 MG TABLET PO SCH (19:44)
[2018-04-02] MEDS: DOCUSATE SODIUM 100 MG CAPSULE PO SCH (19:44)
[2018-04-02] MEDS: SIMVASTATIN 40 MG TABLET. PO SCH (19:44)
[2018-04-02] MEDS: traZODone 150 MG TABLET. PO SCH (19:47)
--- NOTE | 2018-04-02 20:47 | PDOC ---
Exam Note: Bonilla Note: Please also refer to the separate dictated note~for this date of service dictated separately.~Patient seen individually. Discussed the patient with Nursing staff reviewed the chart.~Reviewed interim history and current functioning. Reviewed vital signs,~Labs/ Radiology~and current medications noted below. Continue current treatment with the changes noted in the dictated addendum note Assessment: Vital Signs: Vital Signs Date Time Temp Pulse Resp B/P (MAP) Pulse Ox O2 Delivery O2 Flow Rate FiO2 04/02/18 15:37 98.8 86 20 114/52 (72) 100 Room Air I&O Intake and Output 04/02/18 07:00 Intake Total 840 ml Balance 840 ml Intake Oral 840 ml Labs: Laboratory Tests Test 04/02/18 07:15 04/02/18 07:28 Glucose (Fingerstick) 120 mg/dL (70-99) H White Blood Count 9.2 x10^3/uL (4.0-11.0) Red Blood Count 4.91 x10^6/uL (4.30-5.70) Hemoglobin 14.8 g/dL (13.0-17.5) Hematocrit 44.4 % (39.0-53.0) Mean Corpuscular Volume 91 fL (79-100) Mean Corpuscular Hemoglobin 30 pg (25-35) Mean Corpuscular Hemoglobin Concent 33 g/dL (31-37) Red Cell Distribution Width 14.0 % (11.5-14.5) Platelet Count 276 x10^3/uL (140-400) Neutrophils (%) (Auto) 54 % (31-73) Lymphocytes (%) (Auto) 33 % (24-48) Monocytes (%) (Auto) 10 % (0-9) H Eosinophils (%) (Auto) 4 % (0-3) H Basophils (%) (Auto) 1 % (0-3) Neutrophils # (Auto) 4.9 x10^3uL (1.8-7.7) Lymphocytes # (Auto) 3.0 x10^3/uL (1.0-4.8) Monocytes # (Auto) 0.9 x10^3/uL (0.0-1.1) Eosinophils # (Auto) 0.3 x10^3/uL (0.0-0.7) Basophils # (Auto) 0.1 x10^3/uL (0.0-0.2) Sodium Level 141 mmol/L (136-145) Potassium Level 4.3 mmol/L (3.5-5.1) Chloride Level 105 mmol/L (98-107) Carbon Dioxide Level 28 mmol/L (21-32) Anion Gap 8 (6-14) Blood Urea Nitrogen 8 mg/dL (8-26) Creatinine 1.0 mg/dL (0.7-1.3) Estimated GFR (Cockcroft-Gault) 73.7 BUN/Creatinine Ratio 8 (6-20) Glucose Level 117 mg/dL (70-99) H Calcium Level 9.1 mg/dL (8.5-10.1) Total Bilirubin 0.5 mg/dL (0.2-1.0) Aspartate Amino Transferase (AST) 25 U/L (15-37) Alanine Aminotransferase (ALT) 33 U/L (16-63) Alkaline Phosphatase 67 U/L (46-116) Total Protein 7.5 g/dL (6.4-8.2) Albumin 3.5 g/dL (3.4-5.0) Albumin/Globulin Ratio 0.9 (1.0-1.7) L Current Medications: Meds: Current Medications Acetaminophen (Tylenol) 650 mg PRN Q6HRS PRN PO PAIN / TEMP; Start 03/17/18 at 01:15; Status UNV Multi-Ingredient Ointment (Analgesic [place]) 1 marlen PRN QID PRN TP MUSCLE PAIN; Start 03/17/18 at 01:15 Al Hydroxide/Mg Hydroxide (Mylanta Plus Xs) 15 ml PRN AFTMEALHC PRN PO DYSPEPSIA; Start 03/17/18 at 01:15 Magnesium Hydroxide (Milk Of Magnesia) 2,400 mg PRN QHS PRN PO CONSTIPATION; Start 03/17/18 at 01:15 Clonazepam (KlonoPIN) 0.5 mg BID PO Last administered on 03/18/18at 19:55; Start 03/17/18 at 09:00; Stop 03/18/18 at 20:38; Status DC Clonazepam (KlonoPIN) 0.5 mg PRN DAILY PRN PO ANXIETY / AGITATION; Start at 01:15 Valproic Acid (Depakene) 250 mg HS PO ; Start 03/17/18 at 21:00; Stop 03/17/18 at 21:00; Status DC Donepezil HCl (Aricept) 10 mg QHS PO Last administered on 04/02/18 19:44; Start 03/17/18 at 21:00 Memantine (Namenda) 2.5 mg BID PO Last administered on 03/17/18at 07:54; Start 03/17/18 at 09:00; Stop 03/17/18 at 21:01; Status DC Risperidone (RisperDAL) 1 mg BID PO Last administered on 03/21/18at 07:38; Start 03/17/18 at 09:00; Stop 03/21/18 at 16:11; Status DC Trazodone HCl (Desyrel) 150 mg QHS PO Last administered on 04/02/18at 19:47; Start 03/17/18 at 21:00 Venlafaxine HCl (Effexor Xr) 37.5 mg DAILY PO ; Start 03/17/18 at 09:00; Stop at 09:00; Status DC Acetaminophen (Tylenol) 650 mg PRN Q6HRS PRN PO PAIN / TEMP; Start 03/17/18 at 01:30 Calcium Carbonate/ Glycine (Tums) 500 mg BID PO Last administered on 04/02/18 19:43; Start 03/17/18 at 09:00 Vitamin D (Vitamin D3) 2,000 unit DAILY PO Last administered on 04/02/18at 07:31 ; Start 03/17/18 at 09:00 Simvastatin (Zocor) 40 mg HS PO Last administered on 04/02/18 19:44; Start 06/24 at 21:00 Trimethoprim/ Sulfamethoxazole (Bactrim Ds) 1 tab DAILY PO Last administered on 03/23/18 08:52; Start 03/17/18 at 09:00; Stop 03/24/18 at 08:43; Status DC Vitamin A/Vitamin D (Vitamin A & D Ointment) 1 marlen BID TP Last administered on 04/02/18at 20:43; Start 03/17/18 at 09:00 Aspirin (Children'S Aspirin) 81 mg DAILYWBKFT PO Last administered on at 07:30; Start 03/17/18 at 08:00 Docusate Sodium (Colace) 200 mg HS PO Last administered on 04/02/18 19:44; Start 03/17/18 at 21:00 Magnesium Oxide (Magnesium Oxide) 400 mg DAILY PO Last administered on 07:31; Start 03/17/18 at 09:00 Niacin (Slo-Niacin) 750 mg QEVNG PO Last administered on 04/02/18 17:38; Start 03/17/18 at 18:00 Nystatin (Mycostatin) 1 marlen BID TP Last administered on 04/02/18 20:43; Start 03/17/18 at 09:00 Phenyleph/Shark Oil/Min Oil/Petrol (Preparation H) 1 marlen PRN Q6HRS PRN RC RECTAL PAIN Last administered on 03/28/18 01:39; Start 03/17/18 at 01:30 Sennosides (Senna) 17.2 mg HS PO Last administered on 04/02/18 19:43; Start at 21:00 Venlafaxine HCl (Effexor Xr) 225 mg DAILY PO Last administered on 03/28/18at 07: 48; Start 03/17/18 at 09:00; Stop 03/28/18 at 16:15; Status DC Divalproex Sodium (Depakote Er) 500 mg QHS PO Last administered on 03/20/18at 20 :14; Start 03/17/18 at 21:00; Stop 03/21/18 at 16:11; Status DC Clonazepam (KlonoPIN) 0.25 mg BID PO Last administered on 03/25/18at 08:49; Start 03/18/18 at 21:00; Stop 03/25/18 at 18:25; Status DC Lactobacillus Rhamnosus (Culturelle) 1 cap BID PO Last administered on at 08:33; Start 03/19/18 at 21:00; Stop 03/27/18 at 20:59; Status DC Divalproex Sodium (Depakote Er) 500 mg QHS PO Last administered on 03/23/18at 19 :52; Start 03/21/18 at 21:00; Stop 03/24/18 at 13:42; Status DC Risperidone (RisperDAL) 1 mg HS PO Last administered on 03/26/18at 19:34; Start 03/21/18 at 21:00; Stop 03/27/18 at 16:22; Status DC Melatonin 3 mg QHS PO Last administered on 03/27/18at 20:49; Start 03/21/18 at 21:00; Stop 03/28/18 at 16:15; Status DC Risperidone (RisperDAL) 0.5 mg DAILY PO Last administered on 03/24/18at 09:01; Start 03/22/18 at 09:00; Stop 03/24/18 at 13:42; Status DC Divalproex Sodium (Depakote Er) 250 mg QHS PO Last administered on 03/23/18at 19 :52; Start 03/21/18 at 21:00; Stop 03/24/18 at 13:42; Status DC Divalproex Sodium (Depakote Er) 1,000 mg QHS PO Last administered on 04/02/18at 19:44; Start 03/24/18 at 21:00 Clonazepam (KlonoPIN) 0.25 mg HS PO Last administered on 03/29/18at 19:30; Start 03/25/18 at 21:00; Stop 03/30/18 at 16:25; Status DC Risperidone (RisperDAL) 0.5 mg HS PO Last administered on 04/02/18 19:43; Start 03/27/18 at 21:00 Melatonin 6 mg QHS PO Last administered on 04/02/18 19:43; Start 03/28/18 at 21:00 Venlafaxine HCl (Effexor Xr) 187.5 mg DAILY PO Last administered on 04/02/18at 07:31; Start 03/29/18 at 09:00 Clonazepam (KlonoPIN) 0.25 mg 1X ONCE PO Last administered on 03/28/18at 20:45 ; Start 03/28/18 at 21:00; Stop 03/28/18 at 21:01; Status DC Active Scripts Active Reported Preparation H Cream (Phenyleph/Pramoxin/Glycr/W.pet) 26 Gm Cream..g. 1 [place] RC PRN Q6HRS PRN Nystatin 15 Gm Cream..g. 1 [place] TP BID A and D Ointment (Vits A and D/White Pet/Lanolin) 42.5 Gm Oint...g. 1 Marlen TP BID Vitamin D3 (Cholecalciferol (Vitamin D3)) 1,000 Unit Tablet 2,000 Unit PO DAILY Venlafaxine Hcl Er (Venlafaxine Hcl) 225 Mg Tab.er.24 225 Mg PO DAILY Valproic Acid 250 Mg Capsule 250 Mg PO HS Trazodone Hcl 150 Mg Tablet 150 Mg PO HS Simvastatin 40 Mg Tablet 40 Mg PO HS Senna Lax (Sennosides) 8.6 Mg Tablet 17.2 Mg PO HS Risperidone 1 Mg Tablet 1 Mg PO BID Niacin Er (Niacin) 750 Mg Tab.er.24h 750 Mg PO HS Namenda (Memantine Hcl) 10 Mg Tablet 2.5 Mg PO BID Magnesium Oxide 400 Mg Tablet 400 Mg PO DAILY Donepezil Hcl 10 Mg Tablet 10 Mg PO HS Colace (Docusate Sodium) 100 Mg Capsule 200 Mg PO HS Clonazepam 0.5 Mg Tablet 0.5 Mg PO BID Clonazepam 0.5 Mg Tablet 0.5 Mg PO PRN DAILY PRN Grady-Gest (Calcium Carbonate) 200 Mg Tab.chew 500 Mg PO BID Bactrim Ds Tablet (Sulfamethoxazole/Trimethoprim) 1 Each Tablet 1 Tab PO DAILY Aspirin 81 Mg Tab.chew 81 Mg PO DAILY Acetaminophen 325 Mg Tablet 650 Mg PO PRN Q6HRS PRN I have reviewed the current psychotropics carefully including drug interactions. Risk benefit ratio favors no change other than as noted in my dictated progress note. Diagnosis: Problems: (1) Dementia with behavioral disturbance (2) Anxiety disorder (3) Dementia, vascular, with delusions (4) Dementia, vascular, with depression (5) Dementia in Alzheimer's disease with delusions (6) Dementia in Alzheimer's disease with depression (7) Impulse control disorder CELESTE MARIN MD Apr 02, 2018 20:47
--- NOTE | 2018-04-03 03:24 | PN ---
DATE: 03/31/2018 This is a late entry for 03/31/2018 covers elements not covered in my initial note. SUBJECTIVE: I met with the patient in the evening. The patient slept 7 hours previous evening. He remains confused, withdrawn, otherwise calm, cooperative. Despite reduction of Klonopin and Risperdal, no overt psychotic symptoms or aggression noted. REVIEW OF SYSTEMS: No CV, , pulmonary, eye, ENT system symptoms on review. Reliability poor. MENTAL STATUS EXAM: Oriented to himself. Insight, judgment, recent and remote memory, attention, concentration, fund of knowledge poor, consistent with his diagnosis mentioned in my initial note. PLAN: No change from initial note. MAN Bryant MARIN MD DR: EVARISTO/noé JOB#: [id number] / [id number]
--- NOTE | 2018-04-03 03:26 | PN ---
DATE: 04/01/2018 This is a late entry for 04/01/2018 covers elements not covered in my initial note. SUBJECTIVE: I met with the patient in the evening. The patient slept 5-3/4 hours previous evening. He has been calm, cooperative, had a good day, remains confused, but no aggression or psychotic symptoms noted. He was readily shaking my hand, very eager to do so, which is typical for him. REVIEW OF SYSTEMS: No CV, , pulmonary, eye, ENT system symptoms on review. Reliability poor. MENTAL STATUS EXAM: Oriented to himself. Insight, judgment, recent and remote memory, attention, concentration, fund of knowledge poor, consistent with his diagnosis mentioned in my initial note. PLAN: No change from initial note. MAN Bryant MARIN MD DR: EVARISTO/noé JOB#: [id number] / [id number]
[2018-04-03 05:29] VITALS: BP 134/67
[2018-04-03] MEDS: VENLAFAXINE XR 37.5 MG CAP.ER.24H. PO SCH (08:42)
[2018-04-03] MEDS: ASPIRIN 81 MG TAB.CHEW PO SCH (08:42)
[2018-04-03] MEDS: CHOLECALCIFEROL (VITAMIN D3) 1,000 UNIT TABLET PO SCH (08:43)
[2018-04-03] MEDS: MAGNESIUM OXIDE 400 MG TABLET PO SCH (08:43)
[2018-04-03] MEDS: CALCIUM CARBONATE 500 MG TAB.CHEW PO SCH ×2 (08:43→19:54)
[2018-04-03] MEDS: NYSTATIN 100,000 UNIT/GM TOPICAL CREAM 15GM TUBE. TP SCH ×2 (08:44→21:34)
[2018-04-03] MEDS: VITS A & D/LANOLIN TOPICAL OINTMENT 56GM TUBE. TP SCH ×2 (08:45→21:34)
[2018-04-03 15:55] VITALS: BP 137/81
[2018-04-03] MEDS: NIACIN ER 250 MG TABLET.ER PO SCH (17:32)
[2018-04-03] MEDS: DONEPEZIL HCL 10 MG TABLET PO SCH (19:52)
[2018-04-03] MEDS: SENNOSIDES 8.6 MG TABLET PO SCH (19:53)
[2018-04-03] MEDS: MELATONIN 3 MG TABLET PO SCH (19:53)
[2018-04-03] MEDS: DIVALPROEX ER 500 MG TAB.ER.24H PO SCH (19:54)
[2018-04-03] MEDS: SIMVASTATIN 40 MG TABLET. PO SCH (19:54)
[2018-04-03] MEDS: DOCUSATE SODIUM 100 MG CAPSULE PO SCH (19:54)
[2018-04-03] MEDS: traZODone 150 MG TABLET. PO SCH (19:55)
[2018-04-03] MEDS: risperiDONE 0.25 MG TABLET. PO SCH (19:56)
--- NOTE | 2018-04-03 20:56 | PDOC ---
Exam Note: Bonilla Note: Please also refer to the separate dictated note~for this date of service dictated separately.~Patient seen individually. Discussed the patient with Nursing staff reviewed the chart.~Reviewed interim history and current functioning. Reviewed vital signs,~Labs/ Radiology~and current medications noted below. Continue current treatment with the changes noted in the dictated addendum note Assessment: Vital Signs: Vital Signs Date Time Temp Pulse Resp B/P (MAP) Pulse Ox O2 Delivery O2 Flow Rate FiO2 04/03/18 15:55 98.1 72 19 137/81 (99) 96 04/02/18 15:37 Room Air I&O Intake and Output 04/03/18 07:00 Intake Total 840 ml Balance 840 ml Intake Oral 840 ml # Bowel Movements 1 Labs: Laboratory Tests Test 04/03/18 07:09 Glucose (Fingerstick) 139 mg/dL (70-99) H Current Medications: Meds: Current Medications Acetaminophen (Tylenol) 650 mg PRN Q6HRS PRN PO PAIN / TEMP; Start 03/17/18 at 01:15; Status UNV Multi-Ingredient Ointment (Analgesic [place]) 1 marlen PRN QID PRN TP MUSCLE PAIN; Start 03/17/18 at 01:15 Al Hydroxide/Mg Hydroxide (Mylanta Plus Xs) 15 ml PRN AFTMEALHC PRN PO DYSPEPSIA; Start 03/17/18 at 01:15 Magnesium Hydroxide (Milk Of Magnesia) 2,400 mg PRN QHS PRN PO CONSTIPATION; Start 03/17/18 at 01:15 Clonazepam (KlonoPIN) 0.5 mg BID PO Last administered on 03/18/18at 19:55; Start 03/17/18 at 09:00; Stop 03/18/18 at 20:38; Status DC Clonazepam (KlonoPIN) 0.5 mg PRN DAILY PRN PO ANXIETY / AGITATION; Start at 01:15 Valproic Acid (Depakene) 250 mg HS PO ; Start 03/17/18 at 21:00; Stop 03/17/18 at 21:00; Status DC Donepezil HCl (Aricept) 10 mg QHS PO Last administered on 04/03/18at 19:52; Start 03/17/18 at 21:00 Memantine (Namenda) 2.5 mg BID PO Last administered on 03/17/18 07:54; Start 03/17/18 at 09:00; Stop 03/17/18 at 21:01; Status DC Risperidone (RisperDAL) 1 mg BID PO Last administered on 03/21/18at 07:38; Start 03/17/18 at 09:00; Stop 03/21/18 at 16:11; Status DC Trazodone HCl (Desyrel) 150 mg QHS PO Last administered on 04/03/18 19:55; Start 03/17/18 at 21:00 Venlafaxine HCl (Effexor Xr) 37.5 mg DAILY PO ; Start 03/17/18 at 09:00; Stop at 09:00; Status DC Acetaminophen (Tylenol) 650 mg PRN Q6HRS PRN PO PAIN / TEMP; Start 03/17/18 at 01:30 Calcium Carbonate/ Glycine (Tums) 500 mg BID PO Last administered on 04/03/18 19:54; Start 03/17/18 at 09:00 Vitamin D (Vitamin D3) 2,000 unit DAILY PO Last administered on 04/03/18 08:43 ; Start 03/17/18 at 09:00 Simvastatin (Zocor) 40 mg HS PO Last administered on 04/03/18 19:54; Start 06/24 at 21:00 Trimethoprim/ Sulfamethoxazole (Bactrim Ds) 1 tab DAILY PO Last administered on 03/23/18 08:52; Start 03/17/18 at 09:00; Stop 03/24/18 at 08:43; Status DC Vitamin A/Vitamin D (Vitamin A & D Ointment) 1 marlen BID TP Last administered on 04/03/18 08:45; Start 03/17/18 at 09:00 Aspirin (Children'S Aspirin) 81 mg DAILYWBKFT PO Last administered on 08:42; Start 03/17/18 at 08:00 Docusate Sodium (Colace) 200 mg HS PO Last administered on 04/03/18 19:54; Start 03/17/18 at 21:00 Magnesium Oxide (Magnesium Oxide) 400 mg DAILY PO Last administered on at 08:43; Start 03/17/18 at 09:00 Niacin (Slo-Niacin) 750 mg QEVNG PO Last administered on 04/03/18 17:32; Start 03/17/18 at 18:00 Nystatin (Mycostatin) 1 marlen BID TP Last administered on 04/03/18 08:44; Start 03/17/18 at 09:00 Phenyleph/Shark Oil/Min Oil/Petrol (Preparation H) 1 marlen PRN Q6HRS PRN RC RECTAL PAIN Last administered on 03/28/18at 01:39; Start 03/17/18 at 01:30 Sennosides (Senna) 17.2 mg HS PO Last administered on 04/03/18 19:53; Start at 21:00 Venlafaxine HCl (Effexor Xr) 225 mg DAILY PO Last administered on 03/28/18 07: 48; Start 03/17/18 at 09:00; Stop 03/28/18 at 16:15; Status DC Divalproex Sodium (Depakote Er) 500 mg QHS PO Last administered on 03/20/18at 20 :14; Start 03/17/18 at 21:00; Stop 03/21/18 at 16:11; Status DC Clonazepam (KlonoPIN) 0.25 mg BID PO Last administered on 03/25/18at 08:49; Start 03/18/18 at 21:00; Stop 03/25/18 at 18:25; Status DC Lactobacillus Rhamnosus (Culturelle) 1 cap BID PO Last administered on at 08:33; Start 03/19/18 at 21:00; Stop 03/27/18 at 20:59; Status DC Divalproex Sodium (Depakote Er) 500 mg QHS PO Last administered on 03/23/18at 19 :52; Start 03/21/18 at 21:00; Stop 03/24/18 at 13:42; Status DC Risperidone (RisperDAL) 1 mg HS PO Last administered on 03/26/18 19:34; Start 03/21/18 at 21:00; Stop 03/27/18 at 16:22; Status DC Melatonin 3 mg QHS PO Last administered on 03/27/18at 20:49; Start 03/21/18 at 21:00; Stop 03/28/18 at 16:15; Status DC Risperidone (RisperDAL) 0.5 mg DAILY PO Last administered on 03/24/18 09:01; Start 03/22/18 at 09:00; Stop 03/24/18 at 13:42; Status DC Divalproex Sodium (Depakote Er) 250 mg QHS PO Last administered on 03/23/18at 19 :52; Start 03/21/18 at 21:00; Stop 03/24/18 at 13:42; Status DC Divalproex Sodium (Depakote Er) 1,000 mg QHS PO Last administered on 04/03/18at 19:54; Start 03/24/18 at 21:00 Clonazepam (KlonoPIN) 0.25 mg HS PO Last administered on 03/29/18 19:30; Start 03/25/18 at 21:00; Stop 03/30/18 at 16:25; Status DC Risperidone (RisperDAL) 0.5 mg HS PO Last administered on 04/02/18 19:43; Start 03/27/18 at 21:00; Stop 04/03/18 at 17:17; Status DC Melatonin 6 mg QHS PO Last administered on 04/03/18at 19:53; Start 03/28/18 at 21:00 Venlafaxine HCl (Effexor Xr) 187.5 mg DAILY PO Last administered on 04/03/18at 08:42; Start 03/29/18 at 09:00 Clonazepam (KlonoPIN) 0.25 mg 1X ONCE PO Last administered on 03/28/18at 20:45 ; Start 03/28/18 at 21:00; Stop 03/28/18 at 21:01; Status DC Risperidone (RisperDAL) 0.25 mg QHS PO Last administered on 04/03/18at 19:56; Start 04/03/18 at 21:00 Active Scripts Active Reported Preparation H Cream (Phenyleph/Pramoxin/Glycr/W.pet) 26 Gm Cream..g. 1 Marlen RC PRN Q6HRS PRN Nystatin 15 Gm Cream..g. 1 Marlen TP BID A and D Ointment (Vits A and D/White Pet/Lanolin) 42.5 Gm Oint...g. 1 Marlen TP BID Vitamin D3 (Cholecalciferol (Vitamin D3)) 1,000 Unit Tablet 2,000 Unit PO DAILY Venlafaxine Hcl Er (Venlafaxine Hcl) 225 Mg Tab.er.24 225 Mg PO DAILY Valproic Acid 250 Mg Capsule 250 Mg PO HS Trazodone Hcl 150 Mg Tablet 150 Mg PO HS Simvastatin 40 Mg Tablet 40 Mg PO HS Senna Lax (Sennosides) 8.6 Mg Tablet 17.2 Mg PO HS Risperidone 1 Mg Tablet 1 Mg PO BID Niacin Er (Niacin) 750 Mg Tab.er.24h 750 Mg PO HS Namenda (Memantine Hcl) 10 Mg Tablet 2.5 Mg PO BID Magnesium Oxide 400 Mg Tablet 400 Mg PO DAILY Donepezil Hcl 10 Mg Tablet 10 Mg PO HS Colace (Docusate Sodium) 100 Mg Capsule 200 Mg PO HS Clonazepam 0.5 Mg Tablet 0.5 Mg PO BID Clonazepam 0.5 Mg Tablet 0.5 Mg PO PRN DAILY PRN Grady-Gest (Calcium Carbonate) 200 Mg Tab.chew 500 Mg PO BID Bactrim Ds Tablet (Sulfamethoxazole/Trimethoprim) 1 Each Tablet 1 Tab PO DAILY Aspirin 81 Mg Tab.chew 81 Mg PO DAILY Acetaminophen 325 Mg Tablet 650 Mg PO PRN Q6HRS PRN I have reviewed the current psychotropics carefully including drug interactions. Risk benefit ratio favors no change other than as noted in my dictated progress note. Diagnosis: Problems: (1) Dementia with behavioral disturbance (2) Anxiety disorder (3) Dementia, vascular, with delusions (4) Dementia, vascular, with depression (5) Dementia in Alzheimer's disease with delusions (6) Dementia in Alzheimer's disease with depression (7) Impulse control disorder CELESTE MARIN MD Apr 03, 2018 20:56
--- NOTE | 2018-04-03 22:55 | PN ---
DATE: 04/02/2018 PSYCHIATRIC PROGRESS NOTE This late entry 04/02/2018 covers elements not covered in my initial note. SUBJECTIVE: I met with the patient in the evening. The patient slept 7-1/2 hours previous evening. He did well the previous night. He has some internal hemorrhoids, which seemed to cause discomfort and some anxiety, but despite this, he has not been aggressive. REVIEW OF SYSTEMS: No CV, , pulmonary, eye, ENT system symptoms on review. Reliability poor. MENTAL STATUS EXAM: Oriented to himself. Insight, judgment, recent and remote memory, attention, concentration, fund of knowledge poor, consistent with his diagnosis mentioned in my initial note. PLAN: No change from initial note. MAN Bryant MARIN MD DR: EVARISTO/noé JOB#: [id number] / [id number]
[2018-04-04 05:53] VITALS: BP 135/70
[2018-04-04] MEDS: ASPIRIN 81 MG TAB.CHEW PO SCH (08:26)
[2018-04-04] MEDS: CALCIUM CARBONATE 500 MG TAB.CHEW PO SCH ×2 (08:26→20:17)
[2018-04-04] MEDS: VENLAFAXINE XR 37.5 MG CAP.ER.24H. PO SCH (08:27)
[2018-04-04] MEDS: CHOLECALCIFEROL (VITAMIN D3) 1,000 UNIT TABLET PO SCH (08:27)
[2018-04-04] MEDS: MAGNESIUM OXIDE 400 MG TABLET PO SCH (08:28)
[2018-04-04] MEDS: VITS A & D/LANOLIN TOPICAL OINTMENT 56GM TUBE. TP SCH ×2 (08:29→20:19)
[2018-04-04] MEDS: NYSTATIN 100,000 UNIT/GM TOPICAL CREAM 15GM TUBE. TP SCH ×2 (08:29→20:19)
[2018-04-04 16:14] VITALS: BP 147/85
[2018-04-04] MEDS: NIACIN ER 250 MG TABLET.ER PO SCH (17:28)
[2018-04-04] MEDS: SENNOSIDES 8.6 MG TABLET PO SCH (20:16)
[2018-04-04] MEDS: DOCUSATE SODIUM 100 MG CAPSULE PO SCH (20:16)
[2018-04-04] MEDS: DIVALPROEX ER 500 MG TAB.ER.24H PO SCH (20:16)
[2018-04-04] MEDS: risperiDONE 0.25 MG TABLET. PO SCH (20:18)
[2018-04-04] MEDS: traZODone 150 MG TABLET. PO SCH (20:18)
[2018-04-04] MEDS: MELATONIN 3 MG TABLET PO SCH (20:18)
[2018-04-04] MEDS: SIMVASTATIN 40 MG TABLET. PO SCH (20:18)
[2018-04-04] MEDS: DONEPEZIL HCL 10 MG TABLET PO SCH (20:18)
--- NOTE | 2018-04-04 21:02 | PDOC ---
Exam Note: Bonilla Note: Please also refer to the separate dictated note~for this date of service dictated separately.~Patient seen individually. Discussed the patient with Nursing staff reviewed the chart.~Reviewed interim history and current functioning. Reviewed vital signs,~Labs/ Radiology~and current medications noted below. Continue current treatment with the changes noted in the dictated addendum note Assessment: Vital Signs: Vital Signs Date Time Temp Pulse Resp B/P (MAP) Pulse Ox O2 Delivery O2 Flow Rate FiO2 04/04/18 16:14 97.9 75 18 147/85 (105) 96 04/02/18 15:37 Room Air I&O Intake and Output 04/04/18 07:00 Intake Total 1260 ml Balance 1260 ml Intake Oral 1260 ml # Bowel Movements 3 Labs: Laboratory Tests Test 04/04/18 07:20 Glucose (Fingerstick) 106 mg/dL (70-99) H Current Medications: Meds: Current Medications Acetaminophen (Tylenol) 650 mg PRN Q6HRS PRN PO PAIN / TEMP; Start 03/17/18 at 01:15; Status UNV Multi-Ingredient Ointment (Analgesic [place]) 1 marlen PRN QID PRN TP MUSCLE PAIN; Start 03/17/18 at 01:15 Al Hydroxide/Mg Hydroxide (Mylanta Plus Xs) 15 ml PRN AFTMEALHC PRN PO DYSPEPSIA; Start 03/17/18 at 01:15 Magnesium Hydroxide (Milk Of Magnesia) 2,400 mg PRN QHS PRN PO CONSTIPATION; Start 03/17/18 at 01:15 Clonazepam (KlonoPIN) 0.5 mg BID PO Last administered on 03/18/18at 19:55; Start 03/17/18 at 09:00; Stop 03/18/18 at 20:38; Status DC Clonazepam (KlonoPIN) 0.5 mg PRN DAILY PRN PO ANXIETY / AGITATION; Start at 01:15 Valproic Acid (Depakene) 250 mg HS PO ; Start 03/17/18 at 21:00; Stop 03/17/18 at 21:00; Status DC Donepezil HCl (Aricept) 10 mg QHS PO Last administered on 04/04/18at 20:18; Start 03/17/18 at 21:00 Memantine (Namenda) 2.5 mg BID PO Last administered on 03/17/18 07:54; Start 03/17/18 at 09:00; Stop 03/17/18 at 21:01; Status DC Risperidone (RisperDAL) 1 mg BID PO Last administered on 03/21/18at 07:38; Start 03/17/18 at 09:00; Stop 03/21/18 at 16:11; Status DC Trazodone HCl (Desyrel) 150 mg QHS PO Last administered on 04/04/18at 20:18; Start 03/17/18 at 21:00 Venlafaxine HCl (Effexor Xr) 37.5 mg DAILY PO ; Start 03/17/18 at 09:00; Stop at 09:00; Status DC Acetaminophen (Tylenol) 650 mg PRN Q6HRS PRN PO PAIN / TEMP; Start 03/17/18 at 01:30 Calcium Carbonate/ Glycine (Tums) 500 mg BID PO Last administered on 04/04/18 20:17; Start 03/17/18 at 09:00 Vitamin D (Vitamin D3) 2,000 unit DAILY PO Last administered on 04/04/18 08:27 ; Start 03/17/18 at 09:00 Simvastatin (Zocor) 40 mg HS PO Last administered on 04/04/18 20:18; Start 06/24 at 21:00 Trimethoprim/ Sulfamethoxazole (Bactrim Ds) 1 tab DAILY PO Last administered on 03/23/18at 08:52; Start 03/17/18 at 09:00; Stop 03/24/18 at 08:43; Status DC Vitamin A/Vitamin D (Vitamin A & D Ointment) 1 marlen BID TP Last administered on 04/04/18 20:19; Start 03/17/18 at 09:00 Aspirin (Children'S Aspirin) 81 mg DAILYWBKFT PO Last administered on 08:26; Start 03/17/18 at 08:00 Docusate Sodium (Colace) 200 mg HS PO Last administered on 04/04/18 20:16; Start 03/17/18 at 21:00 Magnesium Oxide (Magnesium Oxide) 400 mg DAILY PO Last administered on at 08:28; Start 03/17/18 at 09:00 Niacin (Slo-Niacin) 750 mg QEVNG PO Last administered on 04/04/18 17:28; Start 03/17/18 at 18:00 Nystatin (Mycostatin) 1 marlen BID TP Last administered on 04/04/18 20:19; Start 03/17/18 at 09:00 Phenyleph/Shark Oil/Min Oil/Petrol (Preparation H) 1 marlen PRN Q6HRS PRN RC RECTAL PAIN Last administered on 03/28/18at 01:39; Start 03/17/18 at 01:30 Sennosides (Senna) 17.2 mg HS PO Last administered on 04/04/18 20:16; Start at 21:00 Venlafaxine HCl (Effexor Xr) 225 mg DAILY PO Last administered on 03/28/18 07: 48; Start 03/17/18 at 09:00; Stop 03/28/18 at 16:15; Status DC Divalproex Sodium (Depakote Er) 500 mg QHS PO Last administered on 03/20/18at 20 :14; Start 03/17/18 at 21:00; Stop 03/21/18 at 16:11; Status DC Clonazepam (KlonoPIN) 0.25 mg BID PO Last administered on 03/25/18at 08:49; Start 03/18/18 at 21:00; Stop 03/25/18 at 18:25; Status DC Lactobacillus Rhamnosus (Culturelle) 1 cap BID PO Last administered on at 08:33; Start 03/19/18 at 21:00; Stop 03/27/18 at 20:59; Status DC Divalproex Sodium (Depakote Er) 500 mg QHS PO Last administered on 03/23/18at 19 :52; Start 03/21/18 at 21:00; Stop 03/24/18 at 13:42; Status DC Risperidone (RisperDAL) 1 mg HS PO Last administered on 03/26/18at 19:34; Start 03/21/18 at 21:00; Stop 03/27/18 at 16:22; Status DC Melatonin 3 mg QHS PO Last administered on 03/27/18at 20:49; Start 03/21/18 at 21:00; Stop 03/28/18 at 16:15; Status DC Risperidone (RisperDAL) 0.5 mg DAILY PO Last administered on 03/24/18 09:01; Start 03/22/18 at 09:00; Stop 03/24/18 at 13:42; Status DC Divalproex Sodium (Depakote Er) 250 mg QHS PO Last administered on 03/23/18at 19 :52; Start 03/21/18 at 21:00; Stop 03/24/18 at 13:42; Status DC Divalproex Sodium (Depakote Er) 1,000 mg QHS PO Last administered on 04/04/18at 20:16; Start 03/24/18 at 21:00 Clonazepam (KlonoPIN) 0.25 mg HS PO Last administered on 03/29/18at 19:30; Start 03/25/18 at 21:00; Stop 03/30/18 at 16:25; Status DC Risperidone (RisperDAL) 0.5 mg HS PO Last administered on 04/02/18at 19:43; Start 03/27/18 at 21:00; Stop 04/03/18 at 17:17; Status DC Melatonin 6 mg QHS PO Last administered on 04/04/18at 20:18; Start 03/28/18 at 21:00 Venlafaxine HCl (Effexor Xr) 187.5 mg DAILY PO Last administered on 04/04/18at 08:27; Start 03/29/18 at 09:00 Clonazepam (KlonoPIN) 0.25 mg 1X ONCE PO Last administered on 03/28/18at 20:45 ; Start 03/28/18 at 21:00; Stop 03/28/18 at 21:01; Status DC Risperidone (RisperDAL) 0.25 mg QHS PO Last administered on 04/04/18at 20:18; Start 04/03/18 at 21:00 Active Scripts Active Reported Preparation H Cream (Phenyleph/Pramoxin/Glycr/W.pet) 26 Gm Cream..g. 1 Marlen RC PRN Q6HRS PRN Nystatin 15 Gm Cream..g. 1 Marlen TP BID A and D Ointment (Vits A and D/White Pet/Lanolin) 42.5 Gm Oint...g. 1 Marlen TP BID Vitamin D3 (Cholecalciferol (Vitamin D3)) 1,000 Unit Tablet 2,000 Unit PO DAILY Venlafaxine Hcl Er (Venlafaxine Hcl) 225 Mg Tab.er.24 225 Mg PO DAILY Valproic Acid 250 Mg Capsule 250 Mg PO HS Trazodone Hcl 150 Mg Tablet 150 Mg PO HS Simvastatin 40 Mg Tablet 40 Mg PO HS Senna Lax (Sennosides) 8.6 Mg Tablet 17.2 Mg PO HS Risperidone 1 Mg Tablet 1 Mg PO BID Niacin Er (Niacin) 750 Mg Tab.er.24h 750 Mg PO HS Namenda (Memantine Hcl) 10 Mg Tablet 2.5 Mg PO BID Magnesium Oxide 400 Mg Tablet 400 Mg PO DAILY Donepezil Hcl 10 Mg Tablet 10 Mg PO HS Colace (Docusate Sodium) 100 Mg Capsule 200 Mg PO HS Clonazepam 0.5 Mg Tablet 0.5 Mg PO BID Clonazepam 0.5 Mg Tablet 0.5 Mg PO PRN DAILY PRN Grady-Gest (Calcium Carbonate) 200 Mg Tab.chew 500 Mg PO BID Bactrim Ds Tablet (Sulfamethoxazole/Trimethoprim) 1 Each Tablet 1 Tab PO DAILY Aspirin 81 Mg Tab.chew 81 Mg PO DAILY Acetaminophen 325 Mg Tablet 650 Mg PO PRN Q6HRS PRN I have reviewed the current psychotropics carefully including drug interactions. Risk benefit ratio favors no change other than as noted in my dictated progress note. Diagnosis: Problems: (1) Dementia with behavioral disturbance (2) Anxiety disorder (3) Dementia, vascular, with delusions (4) Dementia, vascular, with depression (5) Dementia in Alzheimer's disease with delusions (6) Dementia in Alzheimer's disease with depression (7) Impulse control disorder CELESTE MARIN MD Apr 04, 2018 21:02
--- NOTE | 2018-04-04 23:08 | PN ---
DATE: 04/03/2018 PSYCHIATRIC PROGRESS NOTE This late entry 04/03/2018 covers elements not covered in my initial note. SUBJECTIVE: Met with the patient in the evening. Overall, the patient remains confused. He is sleeping well, somewhat withdrawn, but pleasant, not aggressive. REVIEW OF SYSTEMS: No CV, , pulmonary, eye, ENT system symptoms on review. Reliability poor. MENTAL STATUS EXAM: Oriented to himself. Insight, judgment, recent and remote memory, attention, concentration, fund of knowledge is poor, consistent with his diagnoses mentioned in my initial note. He was shaking my hand and this is how he greets me every day. No overt hallucinations noted. LABORATORY DATA: Reviewed. IMPRESSION: Unchanged from initial note. Affect is flat. PLAN: Reduce Risperdal from 0.5 mg at bedtime down to 0.25 mg p.o. at bedtime. Rest unchanged from initial note. MAN Bryant MARIN MD DR: EVARISTO/noé JOB#: [id number] / [id number]
[2018-04-05] MEDS ORDERED: METH29OI TP (00:51)
[2018-04-05] MEDS ORDERED: DIVA500T4 PO (00:53)
[2018-04-05] MEDS ORDERED: MAG30ORA2 PO (00:59)
[2018-04-05] MEDS ORDERED: MAGN400O7 PO (01:01)
[2018-04-05] MEDS ORDERED: MELA3TAB2 PO (01:03)
[2018-04-05] MEDS ORDERED: VENL37.5 PO (01:03)
[2018-04-05] MEDS ORDERED: RISP0.253 PO (01:03)
[2018-04-05 05:57] VITALS: BP 129/65
[2018-04-05] MEDS: MAGNESIUM OXIDE 400 MG TABLET PO SCH (08:03)
[2018-04-05] MEDS: VENLAFAXINE XR 37.5 MG CAP.ER.24H. PO SCH (08:03)
[2018-04-05] MEDS: ASPIRIN 81 MG TAB.CHEW PO SCH (08:03)
[2018-04-05] MEDS: CALCIUM CARBONATE 500 MG TAB.CHEW PO SCH (08:04)
[2018-04-05] MEDS: CHOLECALCIFEROL (VITAMIN D3) 1,000 UNIT TABLET PO SCH (08:04)
[2018-04-05] MEDS: VITS A & D/LANOLIN TOPICAL OINTMENT 56GM TUBE. TP SCH (08:04)
[2018-04-05] MEDS: NYSTATIN 100,000 UNIT/GM TOPICAL CREAM 15GM TUBE. TP SCH (08:05)
--- NOTE | 2018-04-05 20:45 | PDOC ---
Exam Note: Bonilla Note: Please also refer to the separate dictated note~for this date of service dictated separately.~Patient seen individually. Discussed the patient with Nursing staff reviewed the chart.~Reviewed interim history and current functioning. Reviewed vital signs,~Labs/ Radiology~and current medications noted below. Continue current treatment with the changes noted in the dictated addendum note Assessment: Vital Signs: Vital Signs Date Time Temp Pulse Resp B/P (MAP) Pulse Ox O2 Delivery O2 Flow Rate FiO2 04/05/18 05:57 97.4 72 16 129/65 (86) 93 04/02/18 15:37 Room Air I&O Intake and Output 04/05/18 07:00 Intake Total 960 ml Balance 960 ml Intake Oral 960 ml Labs: Laboratory Tests Test 04/05/18 07:35 Glucose (Fingerstick) 117 mg/dL (70-99) H Current Medications: Meds: Current Medications Acetaminophen (Tylenol) 650 mg PRN Q6HRS PRN PO PAIN / TEMP; Start 03/17/18 at 01:15; Status UNV Multi-Ingredient Ointment (Analgesic Castalia) 1 marlen PRN QID PRN TP MUSCLE PAIN; Start 03/17/18 at 01:15; Stop 04/05/18 at 15:36; Status DC Al Hydroxide/Mg Hydroxide (Mylanta Plus Xs) 15 ml PRN AFTMEALHC PRN PO DYSPEPSIA; Start 03/17/18 at 01:15; Stop 04/05/18 at 15:36; Status DC Magnesium Hydroxide (Milk Of Magnesia) 2,400 mg PRN QHS PRN PO CONSTIPATION; Start 03/17/18 at 01:15; Stop 04/05/18 at 15:36; Status DC Clonazepam (KlonoPIN) 0.5 mg BID PO Last administered on 03/18/18at 19:55; Start 03/17/18 at 09:00; Stop 03/18/18 at 20:38; Status DC Clonazepam (KlonoPIN) 0.5 mg PRN DAILY PRN PO ANXIETY / AGITATION; Start at 01:15; Stop 04/05/18 at 15:36; Status DC Valproic Acid (Depakene) 250 mg HS PO ; Start 03/17/18 at 21:00; Stop 03/17/18 at 21:00; Status DC Donepezil HCl (Aricept) 10 mg QHS PO Last administered on 04/04/18at 20:18; Start 03/17/18 at 21:00; Stop 04/05/18 at 15:36; Status DC Memantine (Namenda) 2.5 mg BID PO Last administered on 03/17/18at 07:54; Start 03/17/18 at 09:00; Stop 03/17/18 at 21:01; Status DC Risperidone (RisperDAL) 1 mg BID PO Last administered on 03/21/18at 07:38; Start 03/17/18 at 09:00; Stop 03/21/18 at 16:11; Status DC Trazodone HCl (Desyrel) 150 mg QHS PO Last administered on 04/04/18at 20:18; Start 03/17/18 at 21:00; Stop 04/05/18 at 15:36; Status DC Venlafaxine HCl (Effexor Xr) 37.5 mg DAILY PO ; Start 03/17/18 at 09:00; Stop at 09:00; Status DC Acetaminophen (Tylenol) 650 mg PRN Q6HRS PRN PO PAIN / TEMP; Start 03/17/18 at 01:30; Stop 04/05/18 at 15:36; Status DC Calcium Carbonate/ Glycine (Tums) 500 mg BID PO Last administered on 04/05/18at 08:04; Start 03/17/18 at 09:00; Stop 04/05/18 at 15:36; Status DC Vitamin D (Vitamin D3) 2,000 unit DAILY PO Last administered on 04/05/18at 08:04 ; Start 03/17/18 at 09:00; Stop 04/05/18 at 15:36; Status DC Simvastatin (Zocor) 40 mg HS PO Last administered on 04/04/18at 20:18; Start 06/24 at 21:00; Stop 04/05/18 at 15:36; Status DC Trimethoprim/ Sulfamethoxazole (Bactrim Ds) 1 tab DAILY PO Last administered on 03/23/18at 08:52; Start 03/17/18 at 09:00; Stop 03/24/18 at 08:43; Status DC Vitamin A/Vitamin D (Vitamin A & D Ointment) 1 marlen BID TP Last administered on 04/05/18at 08:04; Start 03/17/18 at 09:00; Stop 04/05/18 at 15:36; Status DC Aspirin (Children'S Aspirin) 81 mg DAILYWBKFT PO Last administered on at 08:03; Start 03/17/18 at 08:00; Stop 04/05/18 at 15:36; Status DC Docusate Sodium (Colace) 200 mg HS PO Last administered on 04/04/18at 20:16; Start 03/17/18 at 21:00; Stop 04/05/18 at 15:36; Status DC Magnesium Oxide (Magnesium Oxide) 400 mg DAILY PO Last administered on at 08:03; Start 03/17/18 at 09:00; Stop 04/05/18 at 15:36; Status DC Niacin (Slo-Niacin) 750 mg QEVNG PO Last administered on 04/04/18at 17:28; Start 03/17/18 at 18:00; Stop 04/05/18 at 15:36; Status DC Nystatin (Mycostatin) 1 marlen BID TP Last administered on 04/05/18at 08:05; Start 03/17/18 at 09:00; Stop 04/05/18 at 15:36; Status DC Phenyleph/Shark Oil/Min Oil/Petrol (Preparation H) 1 marlen PRN Q6HRS PRN RC RECTAL PAIN Last administered on 03/28/18at 01:39; Start 03/17/18 at 01:30; Stop 04/05/18 at 15:36; Status DC Sennosides (Senna) 17.2 mg HS PO Last administered on 04/04/18at 20:16; Start at 21:00; Stop 04/05/18 at 15:36; Status DC Venlafaxine HCl (Effexor Xr) 225 mg DAILY PO Last administered on 03/28/18at 07: 48; Start 03/17/18 at 09:00; Stop 03/28/18 at 16:15; Status DC Divalproex Sodium (Depakote Er) 500 mg QHS PO Last administered on 03/20/18at 20 :14; Start 03/17/18 at 21:00; Stop 03/21/18 at 16:11; Status DC Clonazepam (KlonoPIN) 0.25 mg BID PO Last administered on 03/25/18at 08:49; Start 03/18/18 at 21:00; Stop 03/25/18 at 18:25; Status DC Lactobacillus Rhamnosus (Culturelle) 1 cap BID PO Last administered on at 08:33; Start 03/19/18 at 21:00; Stop 03/27/18 at 20:59; Status DC Divalproex Sodium (Depakote Er) 500 mg QHS PO Last administered on 03/23/18 19 :52; Start 03/21/18 at 21:00; Stop 03/24/18 at 13:42; Status DC Risperidone (RisperDAL) 1 mg HS PO Last administered on 03/26/18at 19:34; Start 03/21/18 at 21:00; Stop 03/27/18 at 16:22; Status DC Melatonin 3 mg QHS PO Last administered on 03/27/18at 20:49; Start 03/21/18 at 21:00; Stop 03/28/18 at 16:15; Status DC Risperidone (RisperDAL) 0.5 mg DAILY PO Last administered on 03/24/18at 09:01; Start 03/22/18 at 09:00; Stop 03/24/18 at 13:42; Status DC Divalproex Sodium (Depakote Er) 250 mg QHS PO Last administered on 03/23/18 19 :52; Start 03/21/18 at 21:00; Stop 03/24/18 at 13:42; Status DC Divalproex Sodium (Depakote Er) 1,000 mg QHS PO Last administered on 04/04/18at 20:16; Start 03/24/18 at 21:00; Stop 04/05/18 at 15:36; Status DC Clonazepam (KlonoPIN) 0.25 mg HS PO Last administered on 03/29/18at 19:30; Start 03/25/18 at 21:00; Stop 03/30/18 at 16:25; Status DC Risperidone (RisperDAL) 0.5 mg HS PO Last administered on 04/02/18at 19:43; Start 03/27/18 at 21:00; Stop 04/03/18 at 17:17; Status DC Melatonin 6 mg QHS PO Last administered on 04/04/18at 20:18; Start 03/28/18 at 21:00; Stop 04/05/18 at 15:36; Status DC Venlafaxine HCl (Effexor Xr) 187.5 mg DAILY PO Last administered on 04/05/18at 08:03; Start 03/29/18 at 09:00; Stop 04/05/18 at 15:36; Status DC Clonazepam (KlonoPIN) 0.25 mg 1X ONCE PO Last administered on 03/28/18at 20:45 ; Start 03/28/18 at 21:00; Stop 03/28/18 at 21:01; Status DC Risperidone (RisperDAL) 0.25 mg QHS PO Last administered on 04/04/18at 20:18; Start 04/03/18 at 21:00; Stop 04/05/18 at 15:36; Status DC Active Scripts Active Reported Effexor Xr (Venlafaxine Hcl) 37.5 Mg Cap.er.24h 187.5 Mg PO DAILY Risperidone 0.25 Mg Tablet 0.25 Mg PO QHS Melatonin 3 Mg Tablet 6 Mg PO QHS Milk Of Magnesia (Magnesium Hydroxide) 400 Mg/5 Ml Oral.susp 2,400 Mg PO PRN QHS PRN Mag-Al Plus Xs Suspension (Mag Hydrox/Al Hydrox/Simeth) 30 Ml Oral.susp 15 Ml PO PRN AFTMEALHC PRN Depakote Er (Divalproex Sodium) 500 Mg Tab.er.24h 1,000 Mg PO QHS Analgesic Castalia (Methyl Salicylate/Menthol) 28 Gm Oint...g. 1 Marlen TP PRN QID PRN Preparation H Cream (Phenyleph/Pramoxin/Glycr/W.pet) 26 Gm Cream..g. 1 Marlen RC PRN Q6HRS PRN Nystatin 15 Gm Cream..g. 1 Marlen TP BID A and D Ointment (Vits A and D/White Pet/Lanolin) 42.5 Gm Oint...g. 1 Marlen TP BID Vitamin D3 (Cholecalciferol (Vitamin D3)) 1,000 Unit Tablet 2,000 Unit PO DAILY Trazodone Hcl 150 Mg Tablet 150 Mg PO HS Simvastatin 40 Mg Tablet 40 Mg PO HS Senna Lax (Sennosides) 8.6 Mg Tablet 17.2 Mg PO HS Niacin Er (Niacin) 750 Mg Tab.er.24h 750 Mg PO HS Magnesium Oxide 400 Mg Tablet 400 Mg PO DAILY Donepezil Hcl 10 Mg Tablet 10 Mg PO HS Colace (Docusate Sodium) 100 Mg Capsule 200 Mg PO HS Clonazepam 0.5 Mg Tablet 0.5 Mg PO PRN DAILY PRN Grady-Gest (Calcium Carbonate) 200 Mg Tab.chew 500 Mg PO BID Aspirin 81 Mg Tab.chew 81 Mg PO DAILY Acetaminophen 325 Mg Tablet 650 Mg PO PRN Q6HRS PRN I have reviewed the current psychotropics carefully including drug interactions. Risk benefit ratio favors no change other than as noted in my dictated progress note. Diagnosis: Problems: (1) Anxiety disorder (2) Dementia, vascular, with delusions (3) Dementia, vascular, with depression (4) Dementia in Alzheimer's disease with delusions (5) Dementia in Alzheimer's disease with depression (6) Impulse control disorder CELESTE MARIN MD Apr 05, 2018 20:45
--- NOTE | 2018-04-06 00:49 | PN ---
DATE: 04/04/2018 PSYCHIATRIC PROGRESS NOTE This late entry 04/04/2018 covers elements not covered in my initial note. SUBJECTIVE: Met with the patient in the evening. Overall, the patient remains confused, somewhat withdrawn, but otherwise pleasant, shaking my hand. He has not been aggressive, slept 6-3/4 hours previous evening. REVIEW OF SYSTEMS: No CV, , pulmonary, eye, ENT system symptoms on review. Reliability is poor. MENTAL STATUS EXAM: Oriented to himself. Insight, judgment, recent and remote memory, attention, concentration, fund of knowledge is poor, consistent with his diagnoses mentioned in my initial note. PLAN: No change from initial note. Risperdal is being gradually reduced and he has tolerated this well. MAN Bryant MARIN MD DR: EVARISTO/noé JOB#: [id number] / [id number]
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
== END 2018-04-05 15:31 | DRG 57 ==
LOC: ER 21:41 → GEROPSY 03-17 00:19
PROVIDERS: ADMIT Psychiatry & Neurology Psychiatry; ATTEND Psychiatry & Neurology Psychiatry
DX: G30.9 Alzheimer's disease, unspecified (principal); F01.51 Vascular dementia, unspecified severity, with behavioral disturbance; N39.0 Urinary tract infection, site not specified; F02.81 Dementia in other diseases classified elsewhere, unspecified severity, with behavioral disturbance; E11.9 Type 2 diabetes mellitus without complications; E78.5 Hyperlipidemia, unspecified; F32.9 Major depressive disorder, single episode, unspecified; F41.9 Anxiety disorder, unspecified; F63.9 Impulse disorder, unspecified; K21.9 Gastro-esophageal reflux disease without esophagitis; K59.09 Other constipation; D50.9 Iron deficiency anemia, unspecified; G47.00 Insomnia, unspecified; K64.8 Other hemorrhoids; Z66 Do not resuscitate; Z79.899 Other long term (current) drug therapy; Z88.0 Allergy status to penicillin; Z88.8 Allergy status to other drugs, medicaments and biological substances
CPT/HCPCS: 36415; 80053; 80061; 80164; 81001; 82306; 82607; 82947; 83036; 83540; 83550; 83735; 84436; 84443; 84480; 85025; 85027; 86592; 87086; 93005; 99285-25